=== PATIENT | female | born 1950 | race Caucasian/White ===

== ENCOUNTER → 2017-12-30 15:09 | Outpatient (CLI) | payer MEDICARE, OTHER, SELFPAY ==
[2017-12-30 15:16] LABS: Bacteria 0 SEEN /hpf (None Seen); Mucous, Urine 0 SEEN /hpf (<or=2+); Red Blood Cells-Urine 0 SEEN /hpf (0-5); Squamous Epithelial Cells - UA 0 SEEN /hpf (5-10); White Blood Cells 0 SEEN /hpf (0-5)
[2017-12-30 18:36] LABS: Absolute Neutrophil Count 6.2 X10^3/uL (2.0-7.7); Basophil# 0.04 X10^3/uL; Basophil% 0.5 % (0-1); Eosinophil# 0.02 X10^3/uL; Eosinophils% 0.2 % (0-5); Hematocrit 43.3 % (37-47); Hemoglobin 13.9 g/dl (12.0-15.0); Lymphocyte % 14.8 % (19-41); Mean Corp Hgb Conc 32.1 g/gl (32-36); Mean Corpuscular Volume 93.3 fL (81-99); Mean Platelet Vol. 10.3 fl (6.2-12.0); Monocyte# 0.56 X10^3/uL; Monocyte% 6.9 % (0-10); Neutrophil # 6.24 X10^3/uL (2.7-7.7); Platelet Count 408 K/mm3 (150-450); RBC Distribution Width CV 14.3 % (11.6-14.6); RBC Distribution Width SD 48.2 fl (35.1-43.9); Red Blood Count 4.64 M/mm3 (4.2-5.4); White Blood Count 8.1 K/mm3 (4.4-11.0)
[2017-12-30 18:37] LABS: POSITIVE COUNT NO; POSITIVE DIFFERENTIAL NO; POSITIVE MORPHOLOGY NO
[2017-12-30 18:54] LABS: Color, Urine Yellow (Yellow); Glucose, Dipstick Normal (Normal); Ketone-Dipstick Negative (Negative); Leukocyte Esterase-Dipstick Negative /ul (Negative); Nitrite-Dipstick Negative (Negative); Occult Blood-Urine Negative /ul (Negative); Protein-Dipstick Negative (Negative); Specific Gravity, Urine 1.005 (1.002-1.030); Urine Bilirubin Dipstick Negative (Negative); Urine Clarity Clear (Clear); Urine Urobilinogen Normal (Normal)
[2017-12-30 18:54] LABS: Amphetamine Urine VISTA NEGATIVE (<1000 ng/mL); Barbiturate Urine VISTA NEGATIVE (< 200 ng/mL); Benzodiazepine Urine VISTA NEGATIVE (< 200 ng/mL); Cocaine Urine VISTA NEGATIVE (< 300 ng/mL); Ecstacy Urine VISTA NEGATIVE (< 500 ng/mL); Methadone Urine VISTA NEGATIVE (< 300 ng/mL); PCP Urine VISTA NEGATIVE (< 25 ng/mL); THC Urine VISTA NEGATIVE (< 50 ng/mL); Vista UDS pH Range 6
[2017-12-30 18:56] LABS: Erythrocyte Sedimentation Rate 9 mm/hr (0-30)
[2017-12-30 19:04] LABS: ALB/GLOB Ratio 1.2 RATIO (0.9-2.4); AST(SGOT) 20 U/L (15-37); Alanine Aminotransfer ALT/SGPT 24 U/L (13-56); Alkaline Phosphatase 85 U/L (45-117); Anion Gap 7 (5-15); BUN 13 mg/dL (7-18); BUN/Creat Ratio 18.1 RATIO (10-20); Calcium,Total 9.4 mg/dL (8.5-10.1); Chloride 105 mmol/L (98-107); Cholesterol 216 mg/dL (200); Creatinine, Serum 0.72 mg/dL (0.55-1.02); EST Glomerular Filtration Rate 86 mL/min (>60); Est Glom Filt Rate - Afr Amer 104 mL/min (>60); Globulin 3.3 g/dL (2.2-4.2); Glucose 99 mg/dL (74-106); High Density Lipoprotein 71 mg/dL; Magnesium 2.3 mg/dL (1.6-2.6); Phosphorus 3.7 mg/dL (2.5-4.9); Potassium 3.9 mmol/L (3.5-5.1); Protein, Total 7.3 g/dL (6.4-8.2); Sodium Level 141 mmol/L (136-145); Thyroid Stim Hormone (TSH) 0.41 uIU/mL (0.358-3.74); Triglycerides 98 mg/dL; Very Low Density Lipoprotein 20 mg/dL (5-40)
[2017-12-30 19:15] LABS: Hemoglobin A1c 5.7 % (4.2-6.3)
[2017-12-31 08:45] LABS: Vitamin D,25 Hydroxy 41.1 ng/mL (29.95-100.01)
== END ==
PROVIDERS: Visit Provider Family Medicine
DX: E11.9 Type 2 diabetes mellitus without complications (principal); E55.9 Vitamin D deficiency, unspecified; M81.0 Age-related osteoporosis without current pathological fracture; L40.50 Arthropathic psoriasis, unspecified; R00.2 Palpitations; Z51.81 Encounter for therapeutic drug level monitoring
CPT/HCPCS: 36415; 80053; 80061; 80307; 81001; 82306; 83036; 83735; 84100; 84443; 85025; 85652

== ENCOUNTER → 2018-01-13 08:14 | Outpatient (CLI) | payer MEDICARE, OTHER, SELFPAY ==
--- NOTE | 2018-01-13 08:17 | HPBD_ITS ---
STUDY: DUAL ENERGY X-RAY ABSORPTIOMETRY / DXA REASON FOR EXAM: Female, 67 years old. The patient is postmenopausal. Loss of height. TECHNIQUE: Bone Mineral Density (BMD) measurements of lumbar spine and bilateral hips were obtained. COMPARISON: Comparison is made with prior study dated June 25, 2015. FINDINGS: Lumbar Spine (L1-L4): g/cm2 (0.793) / T-score (-3.1) / Z-score (-1.4) Findings are suggestive of osteoporosis with a high fracture risk. Left Femur Total: g/cm2 (0.667) / T-score (-2.7) / Z-score (-1.3) Left Femoral Neck: g/cm2 (0.717) / T-score (-2.3) / Z-score (-0.7) Right Femur Total: g/cm2 (0.735) / T-score (-2.2) / Z-score (-0.7) Right Femoral Neck: g/cm2 (0.732) / T-score (-2.2) / Z-score (-0.5) The T-Scores on the most recent prior examination were: Lumbar Spine (L1-L4): There has been worsening of bone density since the previous examination. Left Femur Total: which represents a worsening of 4.3%. Right Femur Total: which represents a worsening of 0.5%. HPBD/Dexa Bone Density Study (HP) IMPRESSION: The patient is considered osteoporotic as outlined below according to World [employer] (WHO) criteria with a high fracture risk. There has been worsening of bone density since the previous examination. Reference Information: The T-score is the number of standard deviations above or below the standard which is normal for young adults at their peak bone mineral density. The World Health Organization (WHO) interprets the T-scores as follows: Above -1 Normal bone density Between -1 and -2.5 Osteopenia Equal to / or below -2.5 Osteoporosis As a practical clinical guideline, osteopenia may be graded as follows: Mild -1 through -1.5 Moderate -1.6 through -2.0 Severe -2.1 through -2.4 The Z-score is the number of standard deviations above or below age-matched controls. A Z-score of less than -1.5 would be considered abnormal. References: 1. NIH Osteoporosis and Related Bone Diseases http://www.osteo.org 2. International Society for Clinical Densitometry http://www.iscd.org 3. National Osteoporosis Foundation http://www.nof.org Electronically Signed: Teja Tobar MD at 11:25 EDT Tel [phone], Service support ,
== END ==
PROVIDERS: Family Provider Family Medicine; PCP Family Medicine
DX: M81.0 Age-related osteoporosis without current pathological fracture (principal)
CPT/HCPCS: 77080

== ENCOUNTER → 2018-03-04 11:44 | Outpatient (CLI) | payer MEDICARE, OTHER, SELFPAY ==
--- NOTE | 2018-03-04 11:48 | BI_ITS ---
MAMMOGRAPHY - BILATERAL SCREENING REASON FOR EXAM: Female, 67 years old. Routine annual screening examination. PERTINENT HISTORY: Non-contributory. TECHNIQUE: Digital bilateral breast ana (3D mammographic acquisition) in the CC and MLO projections. 2-D mediolateral oblique (MLO) and craniocaudad (CC) views of both breasts were obtained. CAD: Full Field Digital Mammography with Computer Added Detection was performed. COMPARISON: Comparison is made with prior study dated February 09, 2017 and February 07, 2016. FINDINGS: Breast Composition: The breasts are heterogeneously dense, which may obscure small masses. There are no dominant masses or suspicious calcifications. No other significant abnormalities are identified. There has been no significant change since the prior study. BI/SCREENING MAMM (CAD), BILAT IMPRESSION: Stable bilateral screening mammogram. Yearly follow-up mammogram recommended. (A) ASSESSMENT CATEGORY: BIRADS Category 1: Negative. A letter regarding these results will be sent to the patient by the facility within 30 days. Approximately 10% of breast cancers are not detected by mammography. A normal mammogram should not delay biopsy of a clinically suspicious abnormality. [id number] Electronically Signed: Teja Tobar MD at 13:04 EDT Tel [phone], Service support ,
== END ==
PROVIDERS: Family Provider Family Medicine; PCP Family Medicine; Visit Provider Obstetrics & Gynecology
DX: Z12.31 Encounter for screening mammogram for malignant neoplasm of breast (principal)
CPT/HCPCS: 77063; 77067

== ENCOUNTER → 2018-03-07 10:22 | Outpatient (CLI) | payer MEDICARE, OTHER, SELFPAY ==
--- NOTE | 2018-03-07 10:36 | MRI_ITS ---
STUDY: MRI BRAIN WITH AND WITHOUT CONTRAST REASON FOR EXAM: Female, 67 years old. Dysmetria. Blurred vision, weakness, headaches, fatigue and unstable feet. TECHNIQUE: Standardized multiplanar fat and water weighted pulse sequences were obtained. 4 ml of Gadavist contrast material was administered intravenously for the contrast portion of the examination. COMPARISON: 06/16/2010. FINDINGS: No restricted diffusion to suspect acute or subacute ischemic infarct. Normal size of the ventricles and extra-axial spaces for the patient's age. Subcortical white matter T2 FLAIR hyperintensity foci in the right cerebral hemisphere are presumably chronic white matter ischemic changes. They have increased in number. Normal bilateral basal ganglia. Normal thalami. There is no extra-axial fluid accumulation. Normal flow voids within the major intracranial circulation suggesting patency by spin echo criteria. Normal venous enhancement. There is no enhancing intra-axial or extra-axial abnormality. Normal sella turcica, pituitary gland, infundibular stalk, optic chiasm and hypothalamus. Normal tectal plate and pineal gland. Normal midbrain, franky and medulla. 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 Normal left cerebellum. Normal basal cisterns. Normal bilateral temporal bones. Normal bilateral internal auditory canals. No demonstrated orbital abnormality, within the constraints of a routine brain study. Normal visualized paranasal sinuses. Normal calvarium and skull base. Normal visualized soft tissue structures. Normal visualized upper cervical spine. MRI/Brain W/WO Contrast IMPRESSION: 1. No MRI evidence of acute or subacute ischemic infarct. 2. 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 3. Increase number of chronic subcortical white matter ischemic changes in the right cerebral hemisphere when compared to 06/16/2010. Electronically Signed: Jesus Corbett MD at 12:37 EDT , Service support ,
[2018-03-07 11:41] LABS: CREATININE FINGERSTICK 0.6 mg/dL (0.55-1.02); EGFR FINGERSTICK > 60.0000 mL/min (>60)
== END ==
PROVIDERS: Family Provider Family Medicine; PCP Family Medicine; Visit Provider Family Medicine
DX: R27.8 Other lack of coordination (principal)
CPT/HCPCS: 70553; A9585

== ENCOUNTER → 2018-03-31 12:00 | Outpatient (CLI) | payer MEDICARE, OTHER, SELFPAY ==
[2018-04-01 12:23] LABS: Vitamin B12 352 pg/mL (211-911)
[2018-04-14 10:41] LABS: Vitamin B1, Thiamine 147.5 nmol/L (66.5-200.0)
== END ==
PROVIDERS: Family Provider Family Medicine; PCP Family Medicine; Visit Provider Family Medicine
DX: R26.89 Other abnormalities of gait and mobility (principal)
CPT/HCPCS: 82607; 84425

== ENCOUNTER → 2018-05-19 08:01 | Outpatient (CLI) | payer MEDICARE, OTHER, SELFPAY ==
[2018-05-19 10:12] LABS: Absolute Lymphocyte Count 2.17 X10^3/ul (0.83-4.51); Absolute Neutrophil Count 5.4 X10^3/uL (2.0-7.7); Basophil# 0.05 X10^3/uL; Basophil% 0.6 % (0-1); Eosinophil# 0.24 X10^3/uL; Eosinophils% 2.7 % (0-5); Hematocrit 42.9 % (37-47); Hemoglobin 13.9 g/dl (12.0-15.0); Lymphocyte # 2.17 X10^3/ul (4.0); Lymphocyte % 24.6 % (19-41); Mean Corp Hgb Conc 32.4 g/gl (32-36); Mean Corpuscular Hgb 30.3 pg (27.0-32.0); Mean Corpuscular Volume 93.5 fL (81-99); Mean Platelet Vol. 10.6 fl (6.2-12.0); Monocyte# 0.94 X10^3/uL; Monocyte% 10.7 % (0-10); Neutrophil # 5.37 X10^3/uL (2.7-7.7); Neutrophil % 60.9 % (47-70); Platelet Count 386 K/mm3 (150-450); RBC Distribution Width CV 13.6 % (11.6-14.6); Red Blood Count 4.59 M/mm3 (4.2-5.4); White Blood Count 8.8 K/mm3 (4.4-11.0)
[2018-05-19 10:14] LABS: POSITIVE COUNT NO; POSITIVE DIFFERENTIAL NO; POSITIVE MORPHOLOGY NO
[2018-05-19 10:30] LABS: ALB/GLOB Ratio 1.1 RATIO (0.9-2.4); AST(SGOT) 22 U/L (15-37); Alanine Aminotransfer ALT/SGPT 28 U/L (13-56); Albumin, Serum 3.8 g/dL (3.2-5.0); Alkaline Phosphatase 80 U/L (45-117); Anion Gap 6 (5-15); BUN 14 mg/dL (7-18); BUN/Creat Ratio 18.9 RATIO (10-20); Calcium,Total 9.2 mg/dL (8.5-10.1); Chloride 107 mmol/L (98-107); Cholesterol 143 mg/dL (200); Creatinine, Serum 0.74 mg/dL (0.55-1.02); EST Glomerular Filtration Rate 82 mL/min (>60); Est Glom Filt Rate - Afr Amer 100 mL/min (>60); Globulin 3.6 g/dL (2.2-4.2); Glucose 76 mg/dL (74-106); Hemoglobin A1c 5.4 % (4.2-6.3); High Density Lipoprotein 70 mg/dL; Potassium 3.9 mmol/L (3.5-5.1); Protein, Total 7.4 g/dL (6.4-8.2); Sodium Level 145 mmol/L (136-145); Triglycerides 114 mg/dL; Very Low Density Lipoprotein 23 mg/dL (5-40)
[2018-05-20 08:12] LABS: Vitamin D,25 Hydroxy 37.1 ng/mL (29.95-100.01)
== END ==
PROVIDERS: Family Provider Family Medicine; PCP Family Medicine; Visit Provider Family Medicine
DX: E78.5 Hyperlipidemia, unspecified (principal); R73.02 Impaired glucose tolerance (oral); E55.9 Vitamin D deficiency, unspecified; F17.200 Nicotine dependence, unspecified, uncomplicated; Z79.52 Long term (current) use of systemic steroids
CPT/HCPCS: 36415; 80053; 80061; 82306; 82533; 83036; 85025

== ENCOUNTER → 2018-05-30 12:44 | Outpatient (CLI) | payer MEDICARE, OTHER, SELFPAY ==
--- NOTE | 2018-06-02 14:55 | LEAS ---
Arterial Study - Arterial Study Arterial Study: This is a 67-year-old female with a history of hyperlipidemia and smoking. The patient presents with pain in her lower extremities with ambulation. Suspecting the presence of atherosclerotic peripheral arterial occlusive disease, the patient was brought to the noninvasive vascular laboratory at this time for the purpose of bilateral noninvasive lower extremity arterial assessment. Doppler signal assessment was used to evaluate the pulses in the lower extremities bilaterally. The posterior tibial and dorsalis pedis pulses were triphasic bilaterally. Segmental limb pressures were obtained at ankle level bilaterally. The right ankle pressure, as determined by posterior tibial pulse, was measured at 126 mmHg. The right ankle pressure, as determined by dorsalis pedis pulse, was measured at 131 mmHg. The left ankle pressure, as determined by posterior tibial pulse, was measured at 130 mmHg. The left ankle pressure, as determined by dorsalis pedis pulse, was measured at 132 mmHg. Pulse-volume recordings were obtained bilaterally and segmentally. Waveform amplitudes appeared to be satisfactory at all levels bilaterally, including low thigh, calf, ankle, and digital levels. Resting ankle-brachial indices were calculated bilaterally. The resting right ankle-brachial index was calculated to be 1.09. The resting left ankle-brachial index was calculated to be 1.10. The patient was exercised on a treadmill at a 5.0% incline at 2 mph. The patient experienced pain in her lower extremities after 1 minute, but was able to complete 5 minutes of ambulation. Ankle pressures were obtained at intervals following cessation of exercise. 1 minute following cessation of exercise, the right ankle pressure was measured at 136 mmHg, and the left ankle pressure was measured at 128 mmHg. 3 minutes following cessation of exercise, the right ankle pressure was measured at 124 mmHg, and the left ankle pressure was measured at 122 mmHg. 5 minutes following cessation of exercise, the right ankle pressure was measured at 114 mmHg, and the left ankle pressure was measured at 120 mmHg. Impression: Based upon the findings of this resting and exercise noninvasive lower extremity arterial study, there is evidence of mild arterial occlusive disease in the lower extremities bilaterally. Triphasic waveforms are noted at ankle level bilaterally. Resting ankle-brachial indices were bilaterally normal. These findings were normal based upon resting criteria. However, following a period of exercise, ankle pressures decreased bilaterally, which is an abnormal physiological response, and appears to indicate the presence of mild arterial occlusive disease in the lower extremities bilaterally. Clinical correlation is advised.
--- NOTE | 2018-06-02 15:04 | LEAS_ITS ---
Arterial Study - Arterial Study Arterial Study: This is a 67-year-old female with a history of hyperlipidemia and smoking. The patient presents with pain in her lower extremities with ambulation. Suspecting the presence of atherosclerotic peripheral arterial occlusive disease , the patient was brought to the noninvasive vascular laboratory at this time for the purpose of bilateral noninvasive lower extremity arterial assessment. Doppler signal assessment was used to evaluate the pulses in the lower extremities bilaterally. The posterior tibial and dorsalis pedis pulses were triphasic bilaterally. Segmental limb pressures were obtained at ankle level bilaterally. The right ankle pressure, as determined by posterior tibial pulse, was measured at 126 mmHg. The right ankle pressure, as determined by dorsalis pedis pulse, was measured at 131 mmHg. The left ankle pressure, as determined by posterior tibial pulse, was measured at 130 mmHg. The left ankle pressure, as determined by dorsalis pedis pulse, was measured at 132 mmHg. Pulse-volume recordings were obtained bilaterally and segmentally. Waveform amplitudes appeared to be satisfactory at all levels bilaterally, including low thigh, calf, ankle, and digital levels. Resting ankle-brachial indices were calculated bilaterally. The resting right ankle-brachial index was calculated to be 1.09. The resting left ankle- brachial index was calculated to be 1.10. The patient was exercised on a treadmill at a 5.0% incline at 2 mph. The patient experienced pain in her lower extremities after 1 minute, but was able to complete 5 minutes of ambulation. Ankle pressures were obtained at intervals following cessation of exercise. 1 minute following cessation of exercise, the right ankle pressure was measured at 136 mmHg, and the left ankle pressure was measured at 128 mmHg. 3 minutes following cessation of exercise, the right ankle pressure was measured at 124 mmHg, and the left ankle pressure was measured at 122 mmHg. 5 minutes following cessation of exercise, the right ankle pressure was measured at 114 mmHg, and the left ankle pressure was measured at 120 mmHg. Impression: Based upon the findings of this resting and exercise noninvasive lower extremity arterial study, there is evidence of mild arterial occlusive disease in the lower extremities bilaterally. Triphasic waveforms are noted at ankle level bilaterally. Resting ankle-brachial indices were bilaterally normal. These findings were normal based upon resting criteria. However, following a period of exercise, ankle pressures decreased bilaterally, which is an abnormal physiological response, and appears to indicate the presence of mild arterial occlusive disease in the lower extremities bilaterally. Clinical correlation is advised.
== END ==
PROVIDERS: Family Provider Family Medicine; PCP Family Medicine; Visit Provider Family Medicine
DX: I73.9 Peripheral vascular disease, unspecified (principal)
CPT/HCPCS: 93924

== ENCOUNTER → 2018-08-15 08:11 | Outpatient (CLI) | payer MEDICARE, OTHER, SELFPAY ==
[2018-08-15 08:39] LABS: Erythrocyte Sedimentation Rate 13 mm/hr (0-30)
[2018-08-15 09:08] LABS: CRP < 2.90 mg/L (0.0-3.0)
[2018-08-17 14:27] LABS: Adrenocorticotropic Hormone < 1.1 pg/mL (7.2-63.3)
== END ==
PROVIDERS: Family Provider Family Medicine; PCP Family Medicine
DX: E27.40 Unspecified adrenocortical insufficiency (principal); Z87.39 Personal history of other diseases of the musculoskeletal system and connective tissue
CPT/HCPCS: 36415; 82024; 82533; 85652; 86140

== ENCOUNTER → 2018-08-31 09:16 | Outpatient (CLI) | payer MEDICARE, OTHER, SELFPAY ==
[2018-08-31 10:28] LABS: Erythrocyte Sedimentation Rate 7 mm/hr (0-30)
[2018-09-01 14:07] LABS: SJOGREN'S Anti-SS-A test < 0.2 AI (0.0-0.9); SJOGREN'S Anti-SS-B test < 0.2 AI (0.0-0.9)
[2018-09-02 11:04] LABS: ANTINUCLEAR ANTIBODIES DIRECT Negative (Negative)
== END ==
PROVIDERS: Family Provider Family Medicine; PCP Family Medicine; Visit Provider Family Medicine
DX: R68.2 Dry mouth, unspecified (principal)
CPT/HCPCS: 36415; 85652; 86038; 86235

== ENCOUNTER → 2018-12-03 07:29 | Outpatient (CLI) | payer MEDICARE, OTHER, SELFPAY ==
[2018-11-28 13:05] VITALS: BMI 23.8
[2018-12-06 08:43] LABS: Adrenocorticotropic Hormone 10.9 pg/mL (7.2-63.3)
== END ==
PROVIDERS: Family Provider Family Medicine; PCP Family Medicine
DX: E27.40 Unspecified adrenocortical insufficiency (principal)
CPT/HCPCS: 36415; 82024; 82533

== ENCOUNTER → 2019-01-07 07:46 | Outpatient (CLI) | payer MEDICARE, OTHER, SELFPAY ==
[2018-11-28 13:05] VITALS: BMI 23.8
[2019-01-07 09:55] LABS: Erythrocyte Sedimentation Rate 4 mm/hr (0-30)
== END ==
PROVIDERS: Family Provider Family Medicine; PCP Family Medicine
DX: M31.6 Other giant cell arteritis (principal); E27.40 Unspecified adrenocortical insufficiency
CPT/HCPCS: 36415; 82533; 85652

== ENCOUNTER → 2019-02-09 | Outpatient (CLI) | payer MEDICARE, OTHER, SELFPAY ==
[2018-11-28 13:05] VITALS: BMI 23.8
[2019-02-09 14:15] LABS: Hematocrit 42.1 % (37-47); Hemoglobin 13.4 g/dl (12.0-15.0); Mean Corp Hgb Conc 31.8 g/gl (32-36); Mean Corpuscular Hgb 29.8 pg (27.0-32.0); Mean Corpuscular Volume 93.8 fL (81-99); Mean Platelet Vol. 10.7 fl (6.2-12.0); Platelet Count 401 K/mm3 (150-450); RBC Distribution Width CV 14.1 % (11.6-14.6); RBC Distribution Width SD 48.1 fl (35.1-43.9); Red Blood Count 4.49 M/mm3 (4.2-5.4); White Blood Count 12.2 K/mm3 (4.4-11.0)
[2019-02-09 14:16] LABS: Scan Indicated on CBC? Y/N NO
[2019-02-09 15:06] LABS: ALB/GLOB Ratio 1.3 RATIO (0.9-2.4); AST(SGOT) 28 U/L (15-37); Alanine Aminotransfer ALT/SGPT 26 U/L (13-56); Albumin, Serum 3.9 g/dL (3.2-5.0); Alkaline Phosphatase 99 U/L (45-117); Anion Gap 7 (5-15); BUN 11 mg/dL (7-18); BUN/Creat Ratio 14.1 RATIO (10-20); Calcium,Total 9.5 mg/dL (8.5-10.1); Chloride 108 mmol/L (98-107); Creatinine, Serum 0.78 mg/dL (0.55-1.02); EST Glomerular Filtration Rate 77 mL/min (>60); Est Glom Filt Rate - Afr Amer 94 mL/min (>60); Ferritin 81 ng/mL (8-252); Globulin 3.1 g/dL (2.2-4.2); Glucose 85 mg/dL (74-106); Potassium 4.3 mmol/L (3.5-5.1); Sodium Level 144 mmol/L (136-145); Thyroid Stim Hormone (TSH) 0.69 uIU/mL (0.358-3.74)
[2019-02-09 15:20] LABS: Vitamin B12 814 pg/mL (211-911)
== END | disposition home or self-care (01) ==
LOC: MFPLAB 11:53
PROVIDERS: Family Provider Family Medicine; PCP Family Medicine; Referring Provider Family Medicine; Visit Provider Family Medicine
DX: E61.1 Iron deficiency (principal); R53.83 Other fatigue
CPT/HCPCS: 36415; 80053; 82607; 82728; 82746; 84443; 85027

== ENCOUNTER → 2019-03-10 14:18 | Outpatient (CLI) | payer MEDICARE, OTHER, SELFPAY ==
[2018-11-28 13:05] VITALS: BMI 23.8
[2019-03-10 15:18] LABS: Potassium 3.7 mmol/L (3.5-5.1)
== END ==
PROVIDERS: Family Provider Family Medicine; PCP Family Medicine; Referring Provider Otolaryngology Otolaryngology/Facial Plastic Surgery; Visit Provider Otolaryngology Otolaryngology/Facial Plastic Surgery
DX: Z79.899 Other long term (current) drug therapy (principal)
CPT/HCPCS: 36415; 84132

== ENCOUNTER → 2019-04-06 | Outpatient (CLI) | payer MEDICARE, OTHER, SELFPAY ==
[2018-11-28 13:05] VITALS: BMI 23.8
[2019-04-06 07:18] LABS: Potassium 3.7 mmol/L (3.5-5.1)
== END | disposition home or self-care (01) ==
LOC: LAB 06:03
PROVIDERS: Family Provider Family Medicine; PCP Family Medicine; Referring Provider Otolaryngology Otolaryngology/Facial Plastic Surgery; Visit Provider Otolaryngology Otolaryngology/Facial Plastic Surgery
DX: Z79.899 Other long term (current) drug therapy (principal)
CPT/HCPCS: 36415; 84132

== ENCOUNTER → 2019-05-10 | Outpatient (CLI) | payer MEDICARE, OTHER, SELFPAY ==
[2018-11-28 13:05] VITALS: BMI 23.8
--- NOTE | 2019-05-10 14:21 | BI_ITS ---
MAMMOGRAPHY - BILATERAL SCREENING REASON FOR EXAM: Female, 68 years old. Routine annual screening examination. PERTINENT HISTORY: Non-contributory. TECHNIQUE: Digital bilateral breast jesus (3D mammographic acquisition) in the CC and MLO projections. 2-D mediolateral oblique (MLO) and craniocaudad (CC) views of both breasts were obtained. CAD: Full Field Digital Mammography with Computer Added Detection was performed. COMPARISON: Comparison is made with prior study dated March 04, 2018 and February 09, 2017. FINDINGS: Breast Composition: The breasts are heterogeneously dense, which may obscure small masses. There are no dominant masses or suspicious calcifications. Small bilateral benign appearing axillary lymph nodes. No other significant abnormalities are identified. There has been no significant change since the prior study. BI/SCREEN MAMM (CAD) W/JESUS BILAT IMPRESSION: Stable bilateral screening mammogram. Yearly follow-up mammogram recommended. (A) ASSESSMENT CATEGORY: BIRADS Category 2: Benign. A letter regarding these results will be sent to the patient by the facility within 30 days. Approximately 10% of breast cancers are not detected by mammography. A normal mammogram should not delay biopsy of a clinically suspicious abnormality. [id number] Electronically Signed: Teja Tobar, at 15:18 EDT , Service support ,
== END | disposition home or self-care (01) ==
LOC: OPBI 14:19
PROVIDERS: Family Provider Family Medicine; PCP Family Medicine; Referring Provider Family Medicine; Visit Provider Family Medicine
DX: Z12.31 Encounter for screening mammogram for malignant neoplasm of breast (principal)
CPT/HCPCS: 77063; 77067

== ENCOUNTER → 2019-05-19 | Outpatient (CLI) | payer MEDICARE, OTHER, SELFPAY ==
[2018-11-28 13:05] VITALS: BMI 23.8
[2019-05-19 10:24] LABS: ALB/GLOB Ratio 1.3 RATIO (0.9-2.4); AST(SGOT) 22 U/L (15-37); Alanine Aminotransfer ALT/SGPT 23 U/L (13-56); Albumin, Serum 3.8 g/dL (3.2-5.0); Alkaline Phosphatase 99 U/L (45-117); Anion Gap 9 (5-15); BUN 12 mg/dL (7-18); BUN/Creat Ratio 13.7 RATIO (10-20); CPK Total, Creatine Kinase 91 U/L (26-192); Calcium,Total 9.3 mg/dL (8.5-10.1); Chloride 108 mmol/L (98-107); Creatinine, Serum 0.87 mg/dL (0.55-1.02); EST Glomerular Filtration Rate 68 mL/min (>60); Est Glom Filt Rate - Afr Amer 82 mL/min (>60); Ferritin 63 ng/mL (8-252); Globulin 2.9 g/dL (2.2-4.2); Glucose 73 mg/dL (74-106); Magnesium 2.2 mg/dL (1.6-2.6); Potassium 3.9 mmol/L (3.5-5.1); Protein, Total 6.7 g/dL (6.4-8.2); Sodium Level 144 mmol/L (136-145)
[2019-05-29 14:08] LABS: Lyme IgG P18 Ab Absent (.); Lyme IgG P23 Ab Absent (.); Lyme IgG P28 Ab Absent (.); Lyme IgG P30 Ab Absent (.); Lyme IgG P39 Ab Absent (.); Lyme IgG P41 Ab Absent (.); Lyme IgG P45 Ab Absent (.); Lyme IgG P58 Ab Absent (.); Lyme IgG P66 Ab Absent (.); Lyme IgG P93 Ab Absent (.); Lyme IgM P23 Ab Absent (.); Lyme IgM P39 Ab Absent (.); Lyme IgM P41 Ab Absent (.)
[2019-05-30 14:02] LABS: Lyme IgG WB Interpretation Negative (.); Lyme IgM WB Interpretation Negative (.)
== END | disposition home or self-care (01) ==
LOC: MFPLAB 08:31
PROVIDERS: Family Provider Family Medicine; PCP Family Medicine; Referring Provider Family Medicine; Visit Provider Family Medicine
DX: R25.2 Cramp and spasm (principal)
CPT/HCPCS: 36415; 80053; 82550; 82728; 83735; 86617

== ENCOUNTER → 2019-05-26 | Outpatient (CLI) | payer MEDICARE, OTHER, SELFPAY ==
[2018-11-28 13:05] VITALS: BMI 23.8
[2019-05-25 08:11] VITALS: BMI 25.9
--- NOTE | 2019-05-26 06:31 | MRI_ITS ---
STUDY: MRI LUMBAR SPINE WITHOUT CONTRAST REASON FOR EXAM: Female, 68 years old. INCOMPLETE PARALYSIS -- muscles in bilat legs become rigid,unable to walk when this happens, chronic back pain. TECHNIQUE: Standardized fat and water weighted pulse sequences were obtained in the sagittal and axial planes. COMPARISON: March 25, 2016 FINDINGS: T12-L1: There is minimal disc space narrowing and endplate spondylosis. There is no significant disc herniation, central canal or foraminal stenosis. Normal lumbar lordosis. There is no substantial scoliosis. Normal conus medullaris that terminates at the L1 L1-2: There is minimal disc space narrowing and endplate spondylosis. There is no significant disc herniation, central canal or foraminal stenosis. L2-3: There is minimal disc space narrowing and endplate spondylosis. There is no significant disc herniation, central canal or foraminal stenosis. L3-4: There is severe disc space narrowing and endplates spondylosis. There is mild disc osteophyte complex asymmetric to the right with mild right foraminal stenosis. There is no significant central canal or left foraminal stenosis. Findings are slightly increased since the prior examination L4-5: There is minimal disc space narrowing and endplate spondylosis. There is no significant disc herniation, central canal or foraminal stenosis. Mild facet arthropathy L5-S1: There is minimal disc space narrowing and endplates spondylosis. Minimal disc bulge and facet arthropathy without significant central canal or foraminal stenosis. Normal visualized sacral ala. MRI/Spine Lumbar (Routine) IMPRESSION: L3/L4: Mild right foraminal stenosis. Electronically Signed: Tylor Gentile MD at 8:24 EDT Tel , Service support ,
== END | disposition home or self-care (01) ==
LOC: MRI 06:25
PROVIDERS: Family Provider Family Medicine; PCP Family Medicine; Referring Provider Family Medicine; Visit Provider Family Medicine
DX: G83.9 Paralytic syndrome, unspecified (principal)
CPT/HCPCS: 72148

== ENCOUNTER → 2019-06-21 | Outpatient (CLI) | payer MEDICARE, OTHER, SELFPAY ==
[2019-05-25 08:11] VITALS: BMI 25.9
[2019-06-21 16:19] LABS: Vitamin B12 420 pg/mL (211-911)
[2019-06-21 16:43] LABS: Thyroid Stim Hormone (TSH) 0.43 uIU/mL (0.358-3.74)
[2019-06-25 23:12] LABS: Endomysial Antibody IgA Negative (Negative)
[2019-06-26 10:08] LABS: Deamidated Gliadin IgA 7 units (0-19); Deamidated Gliadin IgG 1 units (0-19); Thyroglobulin Antibody < 1.0 IU/mL (0.0-0.9); Vitamin B1, Thiamine 128.1 nmol/L (66.5-200.0); t-Transglutaminase IgA <2 U/mL (0-3)
[2019-06-26 13:56] LABS: ANTINUCLEAR ANTIBODIES DIRECT Negative (Negative)
== END | disposition home or self-care (01) ==
PROVIDERS: Family Provider Family Medicine; PCP Family Medicine
DX: E27.40 Unspecified adrenocortical insufficiency (principal); R26.81 Unsteadiness on feet
CPT/HCPCS: 36415; 82607; 83516; 84425; 84443; 86038; 86255; 86800

== ENCOUNTER → 2019-06-27 | Outpatient (CLI) | payer MEDICARE, OTHER, SELFPAY ==
[2019-05-25 08:11] VITALS: BMI 25.9
--- NOTE | 2019-06-27 06:37 | MRI_ITS ---
STUDY: MRI BRAIN WITHOUT CONTRAST REASON FOR EXAM: Female, 68 years old. Unsteady gait and memory loss. TECHNIQUE: Standardized multiplanar fat and water weighted pulse sequences were obtained. COMPARISON: 03/07/2018. FINDINGS: No restricted diffusion to suspect acute or subacute ischemic infarct. Normal size of the ventricles and extra-axial spaces for the patient's age. Subcortical white matter T2 FLAIR hyperintensity foci in the right cerebral hemisphere more than the left are chronic white matter ischemic changes. They are unchanged. No midline shift and no mass effects. Normal bilateral basal ganglia. Normal thalami. There is no extra-axial fluid accumulation. Normal flow voids within the major intracranial circulation suggesting patency by spin echo criteria. Normal sella turcica, pituitary gland, infundibular stalk, optic chiasm and hypothalamus. Normal tectal plate and pineal gland. Normal midbrain, franky and medulla. Normal cerebellum. Normal basal cisterns. Normal bilateral temporal bones. Normal bilateral internal auditory canals. No demonstrated orbital abnormality, within the constraints of a routine brain study. Smaller size right maxillary sinus is probably developmental. Normal paranasal sinuses. Mild right nasal septal deviation. Normal calvarium and skull base. Normal visualized soft tissue structures. Normal visualized upper cervical spine. MRI/Brain without Contrast IMPRESSION: 1. No MRI evidence of acute or subacute ischemic infarct or acute intracranial abnormality. 2. Small chronic subcortical white matter ischemic changes in both cerebral hemispheres, right more than left. 3. No interval change when compared to 03/07/2018. Electronically Signed: Jesus Corbett MD at 9:00 EDT , Service support ,
== END | disposition home or self-care (01) ==
LOC: MRI 06:29
PROVIDERS: Family Provider Family Medicine; PCP Family Medicine
DX: R90.89 Other abnormal findings on diagnostic imaging of central nervous system (principal)
CPT/HCPCS: 70551

== ENCOUNTER → 2019-08-08 | Outpatient (CLI) | payer MEDICARE, OTHER, SELFPAY ==
[2019-05-25 08:11] VITALS: BMI 25.9
[2019-08-08 12:45] LABS: ALB/GLOB Ratio 1.1 RATIO (0.9-2.4); AST(SGOT) 23 U/L (15-37); Alanine Aminotransfer ALT/SGPT 23 U/L (13-56); Albumin, Serum 3.8 g/dL (3.2-5.0); Alkaline Phosphatase 108 U/L (45-117); Anion Gap 5 (5-15); BUN 14 mg/dL (7-18); BUN/Creat Ratio 16.3 RATIO (10-20); Calcium,Total 9.4 mg/dL (8.5-10.1); Chloride 107 mmol/L (98-107); Creatinine, Serum 0.86 mg/dL (0.55-1.02); EST Glomerular Filtration Rate 69 mL/min (>60); Est Glom Filt Rate - Afr Amer 84 mL/min (>60); Globulin 3.4 g/dL (2.2-4.2); Glucose 97 mg/dL (74-106); Potassium 3.8 mmol/L (3.5-5.1); Protein, Total 7.2 g/dL (6.4-8.2); Sodium Level 140 mmol/L (136-145)
== END | disposition home or self-care (01) ==
LOC: MFPLAB 10:20
PROVIDERS: Family Provider Family Medicine; PCP Family Medicine; Referring Provider Family Medicine; Visit Provider Family Medicine
DX: R10.11 Right upper quadrant pain (principal)
CPT/HCPCS: 36415; 80053

== ENCOUNTER → 2019-08-22 | Outpatient (CLI) | payer MEDICARE, OTHER, SELFPAY ==
[2019-05-25 08:11] VITALS: BMI 25.9
--- NOTE | 2019-08-22 08:08 | US_ITS ---
STUDY: ABDOMINAL ULTRASOUND - RIGHT UPPER QUADRANT REASON FOR VISIT: Female, 69 years old right upper quadrant pain. TECHNIQUE: Ultrasound evaluation of the right upper quadrant was performed with real-time and static goyal-scale imaging. TECHNICAL QUALITY: Adequate. COMPARISON: None. FINDINGS: Liver: The liver measures 12.9 cm. There is normal echogenicity of the liver. The bile ducts are within normal limits. There is hepatic color flow. The direction of portal flow is hepatopetal. There is no demonstrated mass lesion. Gallbladder: The patient is status post cholecystectomy. Common Bile Duct (C.B.D.): The common bile duct is dilated and measures 13.1 mm. Pancreas: Normal size of the head, body and tail of the pancreas. There is normal echogenicity of the pancreas. There is no demonstrated pancreatic mass or cyst. Right Kidney: Normal size of the right kidney. The right kidney measures 9.4 cm x 5 cm x 4.3 cm. Normal renal cortex. The right cortex measures 1.4 cm. There is a 1.1 cm x 1.17 x 1 cm cyst in the inferior aspect of the kidney. There is no right hydronephrosis. US/Abdomen Limited IMPRESSION: Status post cholecystectomy. Dilated common bile duct measuring 13.1 mm. Electronically Signed: Teja Tobar, at 15:24 EDT , Service support ,
== END | disposition home or self-care (01) ==
LOC: US 08:06
PROVIDERS: Family Provider Family Medicine; PCP Family Medicine; Referring Provider Family Medicine; Visit Provider Family Medicine
DX: R10.11 Right upper quadrant pain (principal)
CPT/HCPCS: 76705

== ENCOUNTER → 2019-10-09 11:34 | Outpatient (CLI) | payer MEDICARE, OTHER, SELFPAY ==
[2019-05-25 08:11] VITALS: BMI 25.9
[2019-10-09 13:53] LABS: Hematocrit 41.8 % (37-47); Hemoglobin 13.3 g/dL (12.0-15.0); Mean Corp Hgb Conc 31.8 g/dL (32-36); Mean Corpuscular Hgb 29.8 pg (27.0-32.0); Mean Corpuscular Volume 93.5 fL (81-99); Mean Platelet Vol. 10.3 fl (6.2-12.0); Platelet Count 374 K/mm3 (150-450); RBC Distribution Width CV 13.5 % (11.6-14.6); RBC Distribution Width SD 46.3 fl (35.1-43.9); Red Blood Count 4.47 M/mm3 (4.2-5.4); White Blood Count 10.3 K/mm3 (4.4-11.0)
[2019-10-09 14:12] LABS: Vitamin B12 690 pg/mL (211-911)
[2019-10-09 14:21] LABS: ALB/GLOB Ratio 1.2 RATIO (0.9-2.4); AST(SGOT) 22 U/L (15-37); Alanine Aminotransfer ALT/SGPT 20 U/L (13-56); Albumin, Serum 3.9 g/dL (3.2-5.0); Alkaline Phosphatase 95 U/L (45-117); Anion Gap 6 (5-15); BUN 12 mg/dL (7-18); BUN/Creat Ratio 13.2 RATIO (10-20); Calcium,Total 9.2 mg/dL (8.5-10.1); Chloride 108 mmol/L (98-107); Creatinine, Serum 0.91 mg/dL (0.55-1.02); EST Glomerular Filtration Rate 65 mL/min (>60); Est Glom Filt Rate - Afr Amer 79 mL/min (>60); Ferritin 63 ng/mL (8-252); Globulin 3.2 g/dL (2.2-4.2); Glucose 83 mg/dL (74-106); Potassium 3.9 mmol/L (3.5-5.1); Protein, Total 7.1 g/dL (6.4-8.2); Sodium Level 141 mmol/L (136-145); Thyroid Stim Hormone (TSH) 0.78 uIU/mL (0.358-3.74)
[2019-10-11 12:16] LABS: Cholesterol 183 mg/dL (200); High Density Lipoprotein 77 mg/dL; Triglycerides 122 mg/dL; Very Low Density Lipoprotein 24 mg/dL (5-40)
[2019-10-11 12:18] LABS: Vitamin D,25 Hydroxy 22.8 ng/mL (29.95-100.01)
[2019-10-11 12:37] LABS: Hemoglobin A1c 5.3 % (4.2-6.3)
[2019-10-13 17:06] LABS: Anti-Thyroglobulin AB < 1.0 IU/mL (0.0-0.9)
== END ==
PROVIDERS: Family Medicine; Family Provider Family Medicine; PCP Family Medicine; Visit Provider Family Medicine
DX: E61.1 Iron deficiency (principal); R53.83 Other fatigue
CPT/HCPCS: 36415; 80053; 80061; 82306; 82607; 82728; 82746; 83036; 84432; 84443; 85027; 86800

== ENCOUNTER → 2019-11-28 | Outpatient (CLI) | payer MEDICARE, OTHER, SELFPAY ==
[2019-05-25 08:11] VITALS: BMI 25.9
[2019-11-28 08:10] LABS: Thyroid Stim Hormone (TSH) 0.78 uIU/mL (0.358-3.74)
[2019-11-30 00:45] LABS: Adrenocorticotropic Hormone 13.3 pg/mL (7.2-63.3)
== END | disposition home or self-care (01) ==
LOC: LAB 06:52
PROVIDERS: PCP Family Medicine
DX: E27.40 Unspecified adrenocortical insufficiency (principal); R00.0 Tachycardia, unspecified
CPT/HCPCS: 36415; 82024; 82533; 84443

== ENCOUNTER → 2020-01-10 | Outpatient (CLI) | payer MEDICARE, OTHER, SELFPAY ==
[2019-05-25 08:11] VITALS: BMI 25.9
[2020-01-10 15:38] LABS: ALB/GLOB Ratio 1.3 RATIO (0.9-2.4); AST(SGOT) 18 U/L (15-37); Alanine Aminotransfer ALT/SGPT 21 U/L (13-56); Albumin, Serum 3.9 g/dL (3.2-5.0); Alkaline Phosphatase 108 U/L (45-117); Anion Gap 6 (5-15); BUN 10 mg/dL (7-18); BUN/Creat Ratio 12.8 RATIO (10-20); Calcium,Total 9.5 mg/dL (8.5-10.1); Chloride 109 mmol/L (98-107); Cholesterol 161 mg/dL (200); Creatinine, Serum 0.78 mg/dL (0.55-1.02); EST Glomerular Filtration Rate 77 mL/min (>60); Est Glom Filt Rate - Afr Amer 93 mL/min (>60); Globulin 2.9 g/dL (2.2-4.2); Glucose 71 mg/dL (74-106); High Density Lipoprotein 73 mg/dL; Potassium 4.1 mmol/L (3.5-5.1); Protein, Total 6.8 g/dL (6.4-8.2); Sodium Level 143 mmol/L (136-145); Triglycerides 121 mg/dL; Very Low Density Lipoprotein 24 mg/dL (5-40)
[2020-01-10 15:44] LABS: Hemoglobin A1c 5.4 % (4.2-6.3)
[2020-01-13 08:48] LABS: Vitamin D,25 Hydroxy 40.7 ng/mL
== END | disposition home or self-care (01) ==
LOC: MFPLAB 11:50
PROVIDERS: PCP Family Medicine; Referring Provider Family Medicine; Visit Provider Family Medicine
DX: E55.9 Vitamin D deficiency, unspecified (principal); E78.5 Hyperlipidemia, unspecified; R73.02 Impaired glucose tolerance (oral)
CPT/HCPCS: 36415; 80053; 80061; 82306; 83036

== ENCOUNTER → 2020-03-19 16:38 | Outpatient (CLI) | payer MEDICARE, OTHER, SELFPAY ==
[2020-02-14 10:52] VITALS: BMI 25.4
[2020-03-19 17:57] LABS: Cholesterol 162 mg/dL (200); High Density Lipoprotein 75 mg/dL; Triglycerides 144 mg/dL; Very Low Density Lipoprotein 29 mg/dL (5-40)
[2020-03-19 17:58] LABS: Vitamin D,25 Hydroxy 38.1 ng/mL
[2020-03-19 18:01] LABS: Hemoglobin A1c 5.4 % (3.8-5.6)
== END ==
PROVIDERS: PCP Family Medicine; Referring Provider Family Medicine; Visit Provider Family Medicine
DX: R73.02 Impaired glucose tolerance (oral) (principal); E78.5 Hyperlipidemia, unspecified; E55.9 Vitamin D deficiency, unspecified
CPT/HCPCS: 36415; 80061; 82306; 83036

== ENCOUNTER → 2020-03-29 | Outpatient (CLI) | payer MEDICARE, OTHER, SELFPAY ==
[2020-02-14 10:52] VITALS: BMI 25.4
--- NOTE | 2020-03-29 09:25 | RAD_ITS ---
STUDY: X-RAY - ESOPHAGUS (BARIUM SWALLOW) WITH FLUOROSCOPY REASON FOR EXAM: Female, 69 years old. ABDOMINAL BLOATING, PAIN, BURPING, SEVERE HEARTBURN, INDIGESTION. 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 FLUOROSCOPY TIME (if supplied): (0:38) minutes/seconds COMPARISON: None. FINDINGS: There is no demonstrated esophageal foreign body. There is no demonstrated stricture or mucosal abnormality. Normal gastroesophageal junction, without a demonstrated hiatal hernia. The patient ingested a 12 mm tablet of barium without any difficulty. There is atherosclerotic calcification of the aortic arch with tortuosity of the descending aorta. Normal visualized pulmonary parenchyma. There are degenerative changes of the visualized thoracic spine. RAD/Esophagus Single Contrast IMPRESSION: Normal plain film x-ray examination (barium swallow) of the esophagus. Electronically Signed: Teja Tobar, at 10:06 EDT , Service support ,
== END | disposition home or self-care (01) ==
LOC: RAD 08:53
PROVIDERS: PCP Family Medicine; Referring Provider Family Medicine; Visit Provider Family Medicine
DX: K44.9 Diaphragmatic hernia without obstruction or gangrene (principal)
CPT/HCPCS: 74220

== ENCOUNTER → 2020-04-04 | Outpatient (CLI) | payer MEDICARE, OTHER, SELFPAY ==
[2020-02-14 10:52] VITALS: BMI 25.4
--- NOTE | 2020-04-04 10:10 | NM_ITS ---
CLINICAL: 69-year-old female with reported history of abdominal pain and bloating. SEMI-SOLID PHASE 99m Tc SULFUR COLLOID GASTRIC EMPTYING STUDY COMPARISON: Esophageal barium swallow report 03/29/2020 FINDINGS: The patient was administered 1.0 mCi of 99m Tc sulfur colloid mixed with oatmeal and consumed per os. Image acquisitions in the anterior-posterior projections for a total of 60 minutes. There is prompt visualization of the stomach. There is no gastroesophageal reflux identified. The T1/2 linear fit was calculated to be 37.82 minutes, (Normal: 12-56 minutes). NM/Gastric Emptying Study IMPRESSION: 1. NORMAL 99m Tc sulfur colloid semi-solid phase (oatmeal) gastric emptying imaging examination. A. There is normal and preserved semi-solid phase gastric emptying compared to normal controls with maintained first order kinetics throughout all components of the examination. (Gilson et al, J Nucl Med Tech 38: 186, 2010). Electronically Signed: Juan Thomas DO at 22:10 EDT Tel , Service support ,
== END | disposition home or self-care (01) ==
LOC: NM 10:08
PROVIDERS: PCP Family Medicine; Referring Provider Family Medicine; Visit Provider Family Medicine
DX: R68.81 Early satiety (principal)
CPT/HCPCS: 78264; A9541

== ENCOUNTER → 2020-04-11 13:53 | Outpatient (CLI) | payer MEDICARE, OTHER, SELFPAY ==
[2020-02-14 10:52] VITALS: BMI 25.4
--- NOTE | 2020-04-11 14:02 | BD_ITS ---
STUDY: DUAL ENERGY X-RAY ABSORPTIOMETRY / DXA REASON FOR EXAM: Female, 69 years old. Age of varun partial hysterectomy 27. Pat is 130.6# and 4 and quot;11 and quot; a loss of 1.5 and quot; per pat. An HRT patch for yrs now. Patient is a smoker. Been on prednisone for about 10 yrs now. Hx of RA. Takes gabapentin. Has been on prolia for about 1.5 yrs now past use of reclast. Exercises moderatly. Sister has osteo. TECHNIQUE: Bone Mineral Density (BMD) measurements of lumbar spine and bilateral hips were obtained. COMPARISON: Comparison is made with prior examination dated January 13, 2018 FINDINGS: Lumbar Spine (L1-L4): g/cm2 (0.853) / T-score (-2.6) / Z-score (-0.9) Findings are suggestive of osteoporosis with a high fracture risk. Left Femur Total: g/cm2 (0.725) / T-score (-2.2) / Z-score (-0.7) Left Femoral Neck: g/cm2 (0.741) / T-score (-2.1) / Z-score (-0.4) Right Femur Total: g/cm2 (0.741) / T-score (-2.1) / Z-score (-0.6) Right Femoral Neck: g/cm2 (0.720) / T-score (-2.3) / Z-score (-0.5) The T-Scores on the most recent prior examination were: Lumbar Spine (L1-L4): There has been improvement of bone density since the previous examination. Left Femur Total: which represents an improvement of 8.7%. Right Femur Total: which represents an improvement of 0.8%. BD/Dexa Bone Density Study IMPRESSION: The patient is considered osteoporotic as outlined below according to World [employer] (WHO) criteria with a high fracture risk. There has been improvement of bone density since the previous examination. Reference Information: The T-score is the number of standard deviations above or below the standard which is normal for young adults at their peak bone mineral density. The World Health Organization (WHO) interprets the T-scores as follows: Above -1 Normal bone density Between -1 and -2.5 Osteopenia Equal to / or below -2.5 Osteoporosis As a practical clinical guideline, osteopenia may be graded as follows: Mild -1 through -1.5 Moderate -1.6 through -2.0 Severe -2.1 through -2.4 The Z-score is the number of standard deviations above or below age-matched controls. A Z-score of less than -1.5 would be considered abnormal. References: 1. NIH Osteoporosis and Related Bone Diseases http://www.osteo.org 2. International Society for Clinical Densitometry http://www.iscd.org 3. National Osteoporosis Foundation http://www.nof.org Electronically Signed: Teja Tobar, at 15:21 EDT , Service support ,
== END ==
PROVIDERS: PCP Family Medicine; Referring Provider Internal Medicine Rheumatology; Visit Provider Internal Medicine Rheumatology
DX: M81.0 Age-related osteoporosis without current pathological fracture (principal)
CPT/HCPCS: 77080

== ENCOUNTER → 2020-07-23 | Outpatient (CLI) | payer MEDICARE, OTHER, SELFPAY ==
[2020-02-14 10:52] VITALS: BMI 25.4
[2020-07-23 18:01] LABS: Absolute Lymphocyte Count 1.77 X10^3/uL (0.83-4.51); Absolute Neutrophil Count 8.1 X10^3/uL (2.0-7.7); Basophil# 0.06 X10^3/uL; Basophil% 0.5 % (0-1); Eosinophil# 0.03 X10^3/uL; Eosinophils% 0.3 % (0-5); Hematocrit 39.2 % (37-47); Hemoglobin 12.5 g/dL (12.0-15.0); Lymphocyte # 1.77 X10^3/ul (4.0); Lymphocyte % 16.2 % (19-41); Mean Corp Hgb Conc 31.9 g/dL (32-36); Mean Corpuscular Hgb 28.9 pg (27.0-32.0); Mean Corpuscular Volume 90.7 fL (81-99); Mean Platelet Vol. 9.9 fl (6.2-12.0); Monocyte# 0.89 X10^3/uL; Monocyte% 8.1 % (0-10); NRBC Flagged by Analyzer 0 % (0-5); Neutrophil # 8.13 X10^3/uL (2.7-7.7); Neutrophil % 74.3 % (47-70); Platelet Count 485 K/mm3 (150-450); RBC Distribution Width CV 13.2 % (11.6-14.6); RBC Distribution Width SD 44.5 fl (35.1-43.9); Red Blood Count 4.32 M/mm3 (4.2-5.4)
[2020-07-23 18:09] LABS: ALB/GLOB Ratio 1.2 RATIO (0.9-2.4); AST(SGOT) 21 U/L (15-37); Alanine Aminotransfer ALT/SGPT 25 U/L (13-56); Albumin, Serum 3.9 g/dL (3.2-5.0); Alkaline Phosphatase 125 U/L (45-117); Anion Gap 7 (5-15); BUN 12 mg/dL (7-18); BUN/Creat Ratio 16.9 RATIO (10-20); Calcium,Total 9.4 mg/dL (8.5-10.1); Chloride 107 mmol/L (98-107); Cholesterol 161 mg/dL (200); Creatinine, Serum 0.71 mg/dL (0.55-1.02); EST Glomerular Filtration Rate 86 mL/min (>60); Est Glom Filt Rate - Afr Amer 104 mL/min (>60); Globulin 3.2 g/dL (2.2-4.2); Glucose 80 mg/dL (74-106); High Density Lipoprotein 79 mg/dL; Potassium 4.3 mmol/L (3.5-5.1); Protein, Total 7.1 g/dL (6.4-8.2); Sodium Level 142 mmol/L (136-145); Triglycerides 97 mg/dL; Very Low Density Lipoprotein 19 mg/dL (5-40)
[2020-07-23 18:43] LABS: Hemoglobin A1c 5.3 % (3.8-5.6)
[2020-07-24 15:45] LABS: Vitamin D,25 Hydroxy 45.4 ng/mL
== END | disposition home or self-care (01) ==
LOC: MFPLAB 16:01
PROVIDERS: PCP Family Medicine; Referring Provider Family Medicine; Visit Provider Family Medicine
DX: E78.5 Hyperlipidemia, unspecified (principal); R73.02 Impaired glucose tolerance (oral); E55.9 Vitamin D deficiency, unspecified; F17.200 Nicotine dependence, unspecified, uncomplicated; Z86.73 Personal history of transient ischemic attack (TIA), and cerebral infarction without residual deficits
CPT/HCPCS: 36415; 80053; 80061; 82306; 83036; 85025

== ENCOUNTER → 2020-07-29 | Outpatient (CLI) | payer MEDICARE, OTHER, SELFPAY ==
[2020-02-14 10:52] VITALS: BMI 25.4
[2020-07-29 09:31] LABS: Absolute Lymphocyte Count 1.29 X10^3/uL (0.83-4.51); Absolute Neutrophil Count 11.5 X10^3/uL (2.0-7.7); Basophil# 0.08 X10^3/uL; Basophil% 0.6 % (0-1); Eosinophils% 0.7 % (0-5); Hematocrit 40.6 % (37-47); Hemoglobin 12.9 g/dL (12.0-15.0); Lymphocyte # 1.29 X10^3/ul (4.0); Lymphocyte % 9.2 % (19-41); Mean Corp Hgb Conc 31.8 g/dL (32-36); Mean Corpuscular Hgb 29.1 pg (27.0-32.0); Mean Corpuscular Volume 91.6 fL (81-99); Mean Platelet Vol. 9.4 fl (6.2-12.0); Monocyte# 0.99 X10^3/uL; NRBC Flagged by Analyzer 0 % (0-5); Neutrophil # 11.48 X10^3/uL (2.7-7.7); Neutrophil % 81.6 % (47-70); Platelet Count 476 K/mm3 (150-450); RBC Distribution Width CV 13.2 % (11.6-14.6); RBC Distribution Width SD 45.4 fl (35.1-43.9); Red Blood Count 4.43 M/mm3 (4.2-5.4); White Blood Count 14.1 K/mm3 (4.4-11.0)
--- NOTE | 2020-07-29 09:45 | RAD_ITS ---
STUDY: X-RAY CHEST REASON FOR EXAM: Female, 69 years old. Drug therapy. No chest complaints currently. 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 TECHNIQUE: PA and lateral views of the chest. COMPARISON: 09/13/2013. FINDINGS: There is chronic interstitial changes in lungs without acute infiltrate or mass. There is no demonstrated pleural abnormality. Normal size heart. There is evidence of a PVO closure. Normal mediastinum and betty. Normal visualized pulmonary arteries. There is atherosclerotic calcification of the aortic arch with tortuosity. Normal visualized thoracic spine. Normal visualized ribs, clavicles, and shoulders. There is no demonstrated abnormality of the visualized soft tissue structures of the upper abdomen. RAD/Chest PA and Lateral IMPRESSION: Chronic pulmonary changes. There is no new mass or interval change Electronically Signed: Harris Zavala DO at 23:42 EDT Tel [phone], Service support ,
[2020-07-29 10:28] LABS: AST(SGOT) 22 U/L (15-37); Alanine Aminotransfer ALT/SGPT 22 U/L (13-56); Albumin, Serum 3.8 g/dL (3.2-5.0); Alkaline Phosphatase 121 U/L (45-117); Bilirubin, Direct 0.11 mg/dL (0.00-0.30); Globulin 3.5 g/dL (2.2-4.2); Protein, Total 7.3 g/dL (6.4-8.2)
[2020-07-29 10:49] LABS: HIV - WCH Non-Reactive (Nonreactive); Hepatitis B Surface Antibody Non-Reactive; Hepatitis B Surface Antigen Non-Reactive (Nonreactive); Hepatitis C Antibody Non-Reactive (Nonreactive)
[2020-07-31 20:07] LABS: QNTFERON TB Mitogen Value 0.56 IU/mL (.); QNTFERON TB Nil Value 0.01 IU/mL (.); QNTFERON TB1+ Ag Value 0.01 IU/mL (.); QNTFERON TB2+ Ag Value 0.01 IU/mL (.)
[2020-07-31 21:05] LABS: Hepatitis B Core Ab Total Negative (Negative); QNTIFERON TB Positive Criteria Negative (Negative)
== END | disposition home or self-care (01) ==
LOC: LAB 09:10
PROVIDERS: PCP Family Medicine; Referring Provider Dermatology; Visit Provider Dermatology
DX: Z79.899 Other long term (current) drug therapy (principal); L40.0 Psoriasis vulgaris; L57.0 Actinic keratosis; L53.8 Other specified erythematous conditions; L82.0 Inflamed seborrheic keratosis; L82.1 Other seborrheic keratosis; L40.8 Other psoriasis; L40.59 Other psoriatic arthropathy
CPT/HCPCS: 36415; 71046; 80076; 85025; 86480; 86703; 86704; 86706; 86803; 87340

== ENCOUNTER → 2020-10-22 09:53 | Outpatient (CLI) | payer MEDICARE, OTHER, SELFPAY ==
[2020-02-14 10:52] VITALS: BMI 25.4
[2020-10-22 10:10] VITALS: BP 139/75; PULSE 123; RESP 16; TEMP 36.5; O2SAT 100; BMI 24.8
[2020-10-22] MEDS: DENOSUMAB 60 MG/ML SQ (10:22)
[2020-10-22 10:23] VITALS: BP 137/75; PULSE 123; RESP 16; TEMP 36.5; O2SAT 100
== END ==
PROVIDERS: PCP Family Medicine
DX: M81.0 Age-related osteoporosis without current pathological fracture (principal)
CPT/HCPCS: 96372; J0897

== ENCOUNTER → 2020-11-04 14:42 | Outpatient (CLI) | payer MEDICARE, OTHER, SELFPAY ==
[2020-10-22 10:10] VITALS: BMI 24.8
--- NOTE | 2020-11-04 14:52 | CT_ITS ---
STUDY: CT CHEST WITHOUT CONTRAST- LOW DOSE SCREENING PROTOCOL REASON FOR EXAM: Female, 70 years old. Current smoker. pack per year history. No current symptoms of lung cancer or pulmonary infection. Shared decision-making with referring PCP documented in patient''s record. RADIATION DOSAGE (If Supplied By Facility): CTDIvol = ( 2.01 ) mGy, DLP = ( 66.95 ) mGycm TECHNIQUE: Low dose screening CT examination performed from the base of the neck to the upper abdomen. Sagittal and coronal reformatted images performed. Sagittal and coronal MIP images provided. The measurements provided are average, rounded measurements per ACR guidelines. COMPARISON: 08/23/2015 FINDINGS: Mild bilateral apical scarring. Mild emphysematous changes with subpleural blebs. No noncalcified nodule or mass. There is no demonstrated pleural abnormality. Normal heart and pericardium. There are calcifications of the coronary arteries. Normal mediastinum. Normal hilar regions. Normal unenhanced pulmonary arteries. There is atherosclerotic calcification of the aortic arch with tortuosity and elongation of the aortic arch and descending thoracic aorta. Normal osseous structures. Status post cholecystectomy. CT/Low Dose CT Lung Screening IMPRESSION: 1. No significant indeterminate incidental findings requiring additional imaging. 2. Incidental findings include mild emphysema and bilateral apical scarring.. ASSESSMENT CATEGORY: LungRADS 1 - Negative. Continue annual screening with LDCT in 12 months, per established ACR guidelines. Electronically Signed: Juan Lopez MD at 9:00 EST Tel , Service support ,
== END ==
PROVIDERS: PCP Family Medicine; Referring Provider Family Medicine; Visit Provider Family Medicine
DX: Z87.891 Personal history of nicotine dependence (principal); Z12.2 Encounter for screening for malignant neoplasm of respiratory organs
CPT/HCPCS: 71271

== ENCOUNTER 2020-11-29 06:24 | Day surgery (SDC) | payer MEDICARE, OTHER, SELFPAY ==
[2020-11-14 09:56] VITALS: BMI 25.2
[2020-11-29 07:04] VITALS: BP 124/71; PULSE 110; RESP 16; TEMP 36.4; O2SAT 99; BMI 26.1
--- NOTE | 2020-11-29 07:06 | PCM.HP.BLA ---
Problem List (1) Change in bowel habit Status: Acute History and Physical Date of Admission: 11/29/20 Intake Visit Reasons: CSCOPE/ ABDOMINAL DISCOMFORT Chief Complaint: Prolia Allergies cetirizine [From Zyrtec] Allergy (Verified 11/14/20 09:57) Shortness of breath soy Allergy (Verified 11/14/20 09:57) Shortness of breath Sulfa (Sulfonamide Antibiotics) Allergy (Verified 11/14/20 09:57) Hives aspirin Adverse Reaction (Severe, Verified 11/14/20 09:57) Upset stomach tetanus and diphtheria toxoids Adverse Reaction (Severe, Verified 11/14/20 09:57) Unknown alendronate sodium [From Fosamax] Adverse Reaction (Verified 11/14/20 09:57) Nausea ibuprofen Adverse Reaction (Verified 11/14/20 09:57) Upset Stomach methotrexate Adverse Reaction (Verified 11/14/20 09:57) elevated liver enzymes oxycodone [From Percocet] Adverse Reaction (Verified 11/14/20 09:57) unable to urinate raloxifene [From Evista] Adverse Reaction (Verified 11/14/20 09:57) Nausea risedronate sodium [From Actonel] Adverse Reaction (Verified 11/14/20 09:57) Nausea ppi Allergy (Uncoded 11/14/20 09:57) Unknown tapes Adverse Reaction (Uncoded 11/14/20 09:57) fragile skin/skin tears Medications Albuterol IH (ProAir) [Proair Hfa] 1 - 2 puff INHALATION Q4H PRN PRN 07/29/17 [History Confirmed 11/14/20] estradiol 0.025 mg/24 hr semiweekly transdermal patch 1 patch TRANSDERMAL DIRECTED patch 01/05/18 [History Confirmed 11/14/20] prednisone 5 mg tablet 5 mg PO DAILY tab 11/28/18 [History Confirmed 11/14/20] rosuvastatin 5 mg tablet 5 mg PO DAILY 11/28/18 [History Confirmed 11/14/20] azithromycin 250 mg tablet 250 mg PO DAILY 05/25/19 [History Confirmed 11/14/20] gabapentin 100 mg capsule 100 mg PO BID 05/25/19 [History Confirmed 11/14/20] acetaminophen 500 mg tablet 1,000 mg PO TID tab 02/14/20 [History Confirmed 11/14/20] aspirin 81 mg tablet,delayed release 81 mg PO DAILY tab 02/14/20 [History Confirmed 11/14/20] cholecalciferol (vitamin D3) 50 mcg (2,000 unit) capsule 4,000 unit PO DAILY cap 02/14/20 [History Confirmed 11/14/20] cyclobenzaprine 5 mg tablet 5 mg PO DAILY tab 02/14/20 [History Confirmed 11/14/20] guaifenesin 1,200 mg tablet, extended release 12 hr 1,200 mg PO BID 02/14/20 [History Confirmed 11/14/20] tramadol 50 mg tablet 25 mg PO Q8H tab 02/14/20 [History Confirmed 11/14/20] metoprolol succinate 25 mg tablet,extended release 24 hr 12.5 mg PO DAILY #45 tab 10/29/20 [Rx Confirmed 11/14/20] ixekizumab 80 mg/mL subcutaneous auto-injector 80 mg SC Q4W 11/14/20 [History Confirmed 11/14/20] omeprazole 40 mg capsule,delayed release ea PO 11/14/20 [History Confirmed 11/14/20] PFS Medical History (Updated 11/14/20 @ 10:[address] 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) Sinus tachycardia (Chronic) Atrial septal defect (Chronic) Surgical History (Updated 11/14/20 @ 09:55 by Britt Oreilly) History of hernia surgery (Acute) History of rectal fissure (Acute) History of lung surgery (Acute) Hx of hysterectomy (Acute) Hx of foot surgery (Acute) Hx of shoulder surgery (Acute) Hx of cholecystectomy (Resolved) Family History Father Cancer CVA (cerebral vascular accident) Brother Diabetes Brother Cancer Sister Cancer Other Family history of CVA HPI HPI HPI: BOO VILLEDA, is a 70 F who presents to the office today for surgical consultation regarding a change of bowel habits. The patient is referred by Dr Adria Fernando and a written copy my surgical consult recommendations will be returned to him. The patient's most recent endoscopy was performed by Dr. Kane Renee October 19, 2014. That included both an upper and lower endoscopy. Biopsies of the stomach showed reactive gastropathy. H. pylori was negative. Random colonic biopsies showed hyperplastic polyp and multiple fragments of unremarkable colonic mucosa. The patient states that previously she had had a remote colonoscopy done by car rental deliverer Dr. Robel Booker showing microcytic colitis. She states she was having rectal bleeding at that time. She denies any particular medical treatment at that time. She states that she change the type of milk products she was drinking. On this occasion he is complaining of intermittent episodes of severe crampy abdominal pain. No bright red blood per rectum or melena. No weight loss. No nausea or vomiting. It is of additional note that over the past year she has had investigations. At the [facility] August 22, 2019 a right upper quadrant ultrasound was obtained showing evidence of post cholecystectomy. Common bile duct was 13.1 mm. March 29 patient had a esophagram. This was felt to be normal. April 04, 2020 the patient had a nuclear medicine gastric emptying study. This was felt to be normal. July 29, 2020 liver function tests were obtained and are normal except for an alkaline phosphatase of 121. As of July 29 2020 white blood cell count was 14.1 with hemoglobin 12.9 hematocrit 40.6 platelet count 476,000. The patient states that she has arthritis and has been on prednisone therapy for 10 years because she is intolerant to other medications. Family history is negative for colon cancer or colon polyps. No history of DVT HPI HPI HPI: BOO VILLEDA, is a 70 F who presents to the office today for Exam Const General: cooperative, comfortable, no acute distress Nutritional Appearance: average body habitus Orientation: alert, awake [facility] Head: normal to inspection Eyes General: appearance normal, both eyes and all related structures Resp Effort & Inspection: normal respiratory effort Auscultation: clear to auscultation bilaterally Cardio Rate: regular rate Rhythm: regular rhythm GI Palpation: soft, no hepatosplenomegaly Auscultation: normal bowel sounds Musc Cervical Spine: normal cervical lordosis Neuro Cognition: normal cognition Extrem General: no calf tenderness Psych Affect: normal affect Assessment & Plan Problems 1. Change in bowel habit R19.4 Plan I recommend to the patient a colonoscopy with possible biopsy or polypectomy as indicated. Previous colonoscopy October 2014. Crampy abdominal pain change of bowel habit difficulty with defecation. Anticipate using monitored anesthesia care. She is aware of the technique, benefit, risk, alternatives. She notes a remote history of biopsy-proven microcytic colitis. This was not identified on her most recent colonoscopy of 2013. She has had an opportunity to ask and have questions answered. We will schedule procedure at her discretion. I appreciate the opportunity of assisting with her surgical care. Copy: Dr dAria Ramires M.D., F.A.C.S. Coding Level of Care Code 01096 Diagnoses Change in bowel habit R19.4 I have re-examined the patient. There are no clinical changes since date of exam.
[2020-11-29] MEDS: Lactated Ringers 1,000 ML 100 ML IV (07:08)
[2020-11-29 07:15] LABS: Bedside Glucose 82 mg/dL (70-110)
--- NOTE | 2020-11-29 07:30 | COLBX_PTH ---
PATIENT: BOO VILLEDA LOC: EN U#:[id number] AGE/SX: 70/F ROOM: RE11/29/[address]: Dr. Jagdish Ramires MD : 1950 BED: DIS: 11/29/2020 SPEC #: [id number] RECD: 11/29/20 09:59 STATUS: BLOSSOM MAHARAJJanie #: [id number] OSCAR: 11/29/20 07:[address]: Jagdish Ramires DEPT: SURGICAL PATHOLOGY RECD BY: Charu Gallegos ENTERED: 11/29/20 11:17 SP TYPE: COLON BX OTHR DR: Dr. Adria Fernando MD Tissues: COLON BIOPSY Procedures: Surgery Specimen Level IV HEADER OPERATION: Colonoscopy (MAC) PRE-OP DIAGNOSIS: Change in bowel habit TISSUE SUBMITTED: Random colon biopsies MICROSCOPIC DIAGNOSIS Colon, random biopsy: No pathologic change. AM:terri 12/02/2020 MICROSCOPIC DESCRIPTION Slides are reviewed. GROSS DESCRIPTION Received in fixative is one container labeled with the patient's name and designated random colon biopsy. The specimen consists of multiple irregular fragments of light vieira soft tissue that in aggregate measure 1 x 0.5 x 0.1 cm. The specimen is totally submitted in one cassette. / AM:terri 11/29/20 TC:5 CPT: 19593
[2020-11-29 08:41] VITALS: BP 116/69; BP 124/71; PULSE 91; RESP 16; TEMP 36.3; O2SAT 96
[2020-11-29 08:45] VITALS: BP 113/63; BP 124/71; PULSE 16; RESP 16; O2SAT 99
--- NOTE | 2020-11-29 08:45 | OP.CCLET_ITS ---
11/29/2020 Adria Fernando [address] [place] [address] Re : Colonoscopy procedure for Enedina Blandon Dear Dr. Fernando This procedure was performed on Sunday, November 29, 2020. My impressions and recommendations are as follows: Impressions : - Non-thrombosed external hemorrhoids, non-thrombosed internal hemorrhoids and internal hemorrhoids that prolapse with straining, but spontaneously regress to the resting position (Grade II) found on digital rectal exam. - Diverticulosis in the sigmoid colon and in the descending colon. Biopsied. Recommendations : - Discharge patient to home. - Resume previous diet. - Continue present medications. - Repeat colonoscopy in 10 years for screening purposes. - Telephone my office for pathology results in 1 week. My findings are described in the full procedure note, which is enclosed. If I can be of further assistance, please feel free to contact me at Doctor phone number(s): Work: . Sincerely, Jagdish Ramires MD 11/29/2020 8:44:45 AM This report has been signed electronically.
--- NOTE | 2020-11-29 08:45 | OP.COLON_ITS ---
Patient Name: Enedina Blandon Procedure Date: 11/29/2020 7:58 AM Date of : 1950 Age: 70 Procedure: Colonoscopy Indications: Change in bowel habits Providers: Jagdish Ramires MD Referring MD: Adria Fernando Medicines: See the Anesthesia note for documentation of the administered medications Patient Profile: Last Colonoscopy: October 2014. Complications: No immediate complications. Procedure: Pre-Anesthesia Assessment: - Prior to the procedure, a History and Physical was performed, and patient medications and allergies were reviewed. The patient's tolerance of previous anesthesia was also reviewed. The risks and benefits of the procedure and the sedation options and risks were discussed with the patient. All questions were answered, and informed consent was obtained. Prior Anticoagulants: The patient has taken no previous anticoagulant or antiplatelet agents. ASA Grade Assessment: II - A patient with mild systemic disease. After reviewing the risks and benefits, the patient was deemed in satisfactory condition to undergo the procedure. After I obtained informed consent, the scope was passed under direct vision. Throughout the procedure, the patient's blood pressure, pulse, and oxygen saturations were monitored continuously. The pediatric colonoscope was introduced through the anus and advanced to the cecum, identified by appendiceal orifice and ileocecal valve. The colonoscopy was performed without difficulty. The patient tolerated the procedure well. The quality of the bowel preparation was good. The ileocecal valve was photographed. Scope In: 8:22:48 AM Scope Withdrawal Time 0 hours 10 minutes 45 seconds Scope Out: 8:38:37 AM Total Procedure Duration Time 0 hours 15 minutes 49 seconds Findings: The digital rectal exam findings include non-thrombosed external hemorrhoids, non-thrombosed internal hemorrhoids and internal hemorrhoids that prolapse with straining, but spontaneously regress to the resting position (Grade II). Multiple diverticula were found in the sigmoid colon and descending colon. Biopsies for histology were taken with a cold forceps from the entire colon for evaluation of microscopic colitis. Impression: - Non-thrombosed external hemorrhoids, non-thrombosed internal hemorrhoids and internal hemorrhoids that prolapse with straining, but spontaneously regress to the resting position (Grade II) found on digital rectal exam. - Diverticulosis in the sigmoid colon and in the descending colon. Biopsied. Recommendation: - Discharge patient to home. - Resume previous diet. - Continue present medications. - Repeat colonoscopy in 10 years for screening purposes. - Telephone my office for pathology results in 1 week. Procedure Code(s): --- Professional --- 38975, Colonoscopy, flexible; with biopsy, single or multiple Diagnosis Code(s): --- Professional --- K64.1, Second degree hemorrhoids K64.4, Residual hemorrhoidal skin tags R19.4, Change in bowel habit K57.30, Diverticulosis of large intestine without perforation or abscess without bleeding CPT copyright 2017 [employer]. All rights reserved. The codes documented in this report are preliminary and upon milker machine review may be revised to meet current compliance requirements. Jagdish Ramires MD 11/29/2020 8:44:45 AM This report has been signed electronically. Number of Addenda: 0 Note Initiated On: 11/29/2020 7:58 AM
[2020-11-29 08:50] VITALS: BP 111/63; BP 124/71; PULSE 90; RESP 16; O2SAT 99
[2020-11-29 08:56] VITALS: BP 111/57; BP 124/71; PULSE 89; RESP 16; TEMP 36.1; O2SAT 99
[2020-11-29 09:15] VITALS: BP 124/71
== END 2020-11-29 09:20 | disposition home or self-care (01) ==
LOC: EN 06:24 → AC 06:25
PROVIDERS: PCP Family Medicine; Referring Provider Family Medicine; Visit Provider Surgery
PROC: 0DJD8ZZ Inspection of Lower Intestinal Tract, Via Natural or Artificial Opening Endoscopic (ICD-10-PCS; CPT 45378; principal; 2020-11-29 07:25)
DX: K64.1 Second degree hemorrhoids (principal); K57.30 Diverticulosis of large intestine without perforation or abscess without bleeding; K21.9 Gastro-esophageal reflux disease without esophagitis; M19.90 Unspecified osteoarthritis, unspecified site; Z86.73 Personal history of transient ischemic attack (TIA), and cerebral infarction without residual deficits; E78.00 Pure hypercholesterolemia, unspecified; E09.9 Drug or chemical induced diabetes mellitus without complications; T38.0X5A Adverse effect of glucocorticoids and synthetic analogues, initial encounter; Z20.822 Contact with and (suspected) exposure to COVID-19; Z79.52 Long term (current) use of systemic steroids; Z79.02 Long term (current) use of antithrombotics/antiplatelets; Z79.899 Other long term (current) drug therapy
CPT/HCPCS: 45380; 82962; 87426; 88305; C9803; J7120; J2405

== ENCOUNTER → 2021-01-21 15:05 | Outpatient (CLI) | payer MEDICARE, OTHER, SELFPAY ==
[2021-01-21 15:09] LABS: Bacteria 0 SEEN /hpf (None Seen); Mucous, Urine 0 SEEN /hpf (<or=2+); Red Blood Cells-Urine 0 SEEN /hpf (0-5); White Blood Cells 0 SEEN /hpf (0-5)
[2021-01-21 17:59] LABS: Color, Urine Yellow (Yellow); Glucose, Dipstick Normal (Normal); Ketone-Dipstick Negative (Negative); Leukocyte Esterase-Dipstick Negative /ul (Negative); Nitrite-Dipstick Negative (Negative); Occult Blood-Urine Negative /ul (Negative); Protein-Dipstick Negative (Negative); Specific Gravity, Urine 1.015 (1.002-1.030); Urine Bilirubin Dipstick Negative (Negative); Urine Clarity Clear (Clear); Urine Urobilinogen Normal (Normal)
[2021-01-21 18:01] LABS: Absolute Lymphocyte Count 1.04 X10^3/uL (0.83-4.51); Absolute Neutrophil Count 6.8 X10^3/uL (2.0-7.7); Basophil# 0.07 X10^3/uL; Basophil% 0.8 % (0-1); Eosinophil# 0.03 X10^3/uL; Eosinophils% 0.3 % (0-5); Hematocrit 41.6 % (37-47); Hemoglobin 12.8 g/dL (12.0-15.0); Lymphocyte # 1.04 X10^3/ul (4.0); Mean Corp Hgb Conc 30.8 g/dL (32-36); Mean Corpuscular Hgb 29.5 pg (27.0-32.0); Mean Corpuscular Volume 95.9 fL (81-99); Mean Platelet Vol. 10.5 fl (6.2-12.0); Monocyte# 0.62 X10^3/uL; Monocyte% 7.2 % (0-10); NRBC Flagged by Analyzer 0 % (0-5); Neutrophil # 6.79 X10^3/uL (2.7-7.7); Neutrophil % 78.7 % (47-70); Platelet Count 432 K/mm3 (150-450); RBC Distribution Width SD 46.2 fl (35.1-43.9); Red Blood Count 4.34 M/mm3 (4.2-5.4); White Blood Count 8.6 K/mm3 (4.4-11.0)
[2021-01-21 18:07] LABS: Squamous Epithelial Cells - UA 0-5 SEEN /hpf (5-10)
[2021-01-21 18:34] LABS: ALB/GLOB Ratio 1.1 RATIO (0.9-2.4); AST(SGOT) 21 U/L (15-37); Alanine Aminotransfer ALT/SGPT 19 U/L (13-56); Albumin, Serum 3.6 g/dL (3.2-5.0); Alkaline Phosphatase 100 U/L (45-117); Anion Gap 6 (5-15); BUN 15 mg/dL (7-18); BUN/Creat Ratio 17.6 RATIO (10-20); Calcium,Total 9.2 mg/dL (8.5-10.1); Chloride 108 mmol/L (98-107); Cholesterol 156 mg/dL (200); Creatinine, Serum 0.85 mg/dL (0.55-1.02); EST Glomerular Filtration Rate 70 mL/min (>60); Est Glom Filt Rate - Afr Amer 84 mL/min (>60); Globulin 3.4 g/dL (2.2-4.2); Glucose 118 mg/dL (74-106); High Density Lipoprotein 76 mg/dL; Potassium 4.1 mmol/L (3.5-5.1); Sodium Level 143 mmol/L (136-145); Triglycerides 95 mg/dL; Very Low Density Lipoprotein 19 mg/dL (5-40)
== END ==
PROVIDERS: PCP Family Medicine; Visit Provider Family Medicine
DX: J44.9 Chronic obstructive pulmonary disease, unspecified (principal); E55.9 Vitamin D deficiency, unspecified; E78.5 Hyperlipidemia, unspecified
CPT/HCPCS: 36415; 80053; 80061; 81001; 82306; 85025

== ENCOUNTER → 2021-03-19 09:55 | Outpatient (CLI) | payer MEDICARE, OTHER, SELFPAY ==
[2021-03-19 11:58] LABS: Amphetamine Urine VISTA NEGATIVE (<1000 ng/mL); Barbiturate Urine VISTA NEGATIVE (< 200 ng/mL); Benzodiazepine Urine VISTA NEGATIVE (< 200 ng/mL); Cocaine Urine VISTA NEGATIVE (< 300 ng/mL); Ecstacy Urine VISTA NEGATIVE (< 500 ng/mL); Methadone Urine VISTA NEGATIVE (< 300 ng/mL); PCP Urine VISTA NEGATIVE (< 25 ng/mL); THC Urine VISTA NEGATIVE (< 50 ng/mL); Vista UDS pH Range 6
== END ==
PROVIDERS: PCP Family Medicine; Referring Provider Anesthesiology Pain Medicine; Visit Provider Anesthesiology Pain Medicine
DX: F11.20 Opioid dependence, uncomplicated (principal)
CPT/HCPCS: 80307

== ENCOUNTER → 2021-04-18 09:54 | Outpatient (CLI) | payer MEDICARE, OTHER, SELFPAY ==
[2020-02-14 10:52] VITALS: BMI 25.4
[2021-04-18 10:00] VITALS: BP 139/67; PULSE 108; RESP 16; TEMP 36.5; O2SAT 99; BMI 26.4
[2021-04-18] MEDS: DENOSUMAB 60 MG/ML SC (10:10)
== END ==
PROVIDERS: PCP Family Medicine; Referring Provider Internal Medicine Rheumatology; Visit Provider Internal Medicine Rheumatology
DX: M81.0 Age-related osteoporosis without current pathological fracture (principal)
CPT/HCPCS: 96372; J0897

== ENCOUNTER → 2021-05-20 14:31 | Outpatient (CLI) | payer MEDICARE, OTHER, SELFPAY ==
[2021-04-18 10:00] VITALS: BMI 26.4
[2021-05-20 17:51] LABS: Absolute Neutrophil Count 9.1 X10^3/uL (2.0-7.7); Basophil# 0.05 X10^3/uL; Basophil% 0.5 % (0-1); Eosinophil# 0.02 X10^3/uL; Eosinophils% 0.2 % (0-5); Hematocrit 42.3 % (37-47); Hemoglobin 13.1 g/dL (12.0-15.0); Lymphocyte % 8.3 % (19-41); Mean Corpuscular Hgb 29.6 pg (27.0-32.0); Mean Corpuscular Volume 95.5 fL (81-99); Mean Platelet Vol. 10.2 fl (6.2-12.0); Monocyte# 0.58 X10^3/uL; Monocyte% 5.4 % (0-10); NRBC Flagged by Analyzer 0 % (0-5); Neutrophil # 9.12 X10^3/uL (2.7-7.7); Neutrophil % 84.1 % (47-70); Platelet Count 422 K/mm3 (150-450); RBC Distribution Width SD 49.6 fl (35.1-43.9); Red Blood Count 4.43 M/mm3 (4.2-5.4); White Blood Count 10.8 K/mm3 (4.4-11.0)
[2021-05-20 18:06] LABS: Hemoglobin A1c 5.8 % (3.8-5.6)
[2021-05-20 18:10] LABS: Microalbumin:Creatinine Ratio 10.5 mg/g CRE (<30 mg/g CRE)
[2021-05-20 18:18] LABS: ALB/GLOB Ratio 1.1 RATIO (0.9-2.4); AST(SGOT) 22 U/L (15-37); Alanine Aminotransfer ALT/SGPT 26 U/L (13-56); Albumin, Serum 3.6 g/dL (3.2-5.0); Alkaline Phosphatase 98 U/L (45-117); Anion Gap 7 (5-15); BUN 16 mg/dL (7-18); BUN/Creat Ratio 17.2 RATIO (10-20); Calcium,Total 8.8 mg/dL (8.5-10.1); Chloride 109 mmol/L (98-107); Cholesterol 166 mg/dL (200); Creatinine, Serum 0.93 mg/dL (0.55-1.02); EST Glomerular Filtration Rate 63 mL/min (>60); Est Glom Filt Rate - Afr Amer 76 mL/min (>60); Globulin 3.4 g/dL (2.2-4.2); Glucose 151 mg/dL (74-106); High Density Lipoprotein 67 mg/dL; Potassium 3.8 mmol/L (3.5-5.1); Sodium Level 142 mmol/L (136-145); Triglycerides 111 mg/dL; Very Low Density Lipoprotein 22 mg/dL (5-40)
== END ==
PROVIDERS: PCP Family Medicine; Visit Provider Family Medicine
DX: E78.5 Hyperlipidemia, unspecified (principal); E55.9 Vitamin D deficiency, unspecified; R73.02 Impaired glucose tolerance (oral)
CPT/HCPCS: 80053; 80061; 82043; 82306; 82570; 83036; 85025

== ENCOUNTER → 2021-06-02 13:00 | Outpatient (CLI) | payer MEDICARE, OTHER, SELFPAY ==
[2021-04-18 10:00] VITALS: BMI 26.4
--- NOTE | 2021-06-02 13:01 | ART_ITS ---
Reason For Study: PAD Procedure A bilateral lower extremity continuous wave Doppler with analog waveform analysis,segmental pressures,and ankle brachial indexes with exercise. Left Segmental Pressures Left brachial= 126mmHg. Left posterior tibial artery = 132mmHg. Left dorsalis pedis artery = 138mmHg. Left digit = 62 mmHg. The left dorsalis pedis waveforms are triphasic. The left posterior tibial artery waveforms are triphasic. Right Segmental Pressures Right brachial= 129mmHg. Right calf = 141mmHg. Right posterior tibial artery = 126mmHg. Right dorsalis pedis artery = 128mmHg. Right digit = 106 mmHg. The right dorsalis pedis waveforms are triphasic. The right posterior tibial artery waveforms are triphasic. Indices The right ankle brachial index by the dorsalis pedis is 0.99. The right ankle brachial index by the posterior tibial artery is 0.98. The right digital-brachial index is 0.82. The right post exercise ankle brachial index is 1.10. The left ankle brachial index by the dorsalis pedis is 1.07. The left ankle brachial index by the posterior tibial artery is 1.02. The left digital-brachial index is 0.48. The left post exercise ankle brachial index is 1.15. VL/Lower Ext Art Exam w/ Exercise Interpretation Summary Normal bilateral lower extremity ankle-brachial indices at rest with normal zelalem ateral posterior tibial and dorsalis pedis triphasic Doppler waveforms Right resting ankle-brachial index 0.99 with post exercise index 1.10 Left ankle-brachial resting index 1.07 with post exercise index 1.15 Bilateral exercise ankle-brachial indices are normal Ordering Physician: Adria Fernando Referring Physician: Adria Fernando Performed By: Charisma Pretty RVT
== END ==
PROVIDERS: PCP Family Medicine; Referring Provider Family Medicine; Visit Provider Family Medicine
DX: I73.9 Peripheral vascular disease, unspecified (principal)
CPT/HCPCS: 93924

== ENCOUNTER → 2021-08-19 14:29 | Outpatient (CLI) | payer MEDICARE, OTHER, SELFPAY ==
[2021-08-19 15:35] LABS: Anion Gap 8 (5-15); BNP,B-Type NATRIURETIC PEPTIDE 25.2 pg/mL (0-100); BUN 19 mg/dL (7-18); BUN/Creat Ratio 26.6 RATIO (10-20); Calcium,Total 8.7 mg/dL (8.5-10.1); Chloride 106 mmol/L (98-107); Creatinine, Serum 0.72 mg/dL (0.55-1.02); EST Glomerular Filtration Rate 85 mL/min (>60); Est Glom Filt Rate - Afr Amer 103 mL/min (>60); Glucose 141 mg/dL (74-106); Potassium 3.2 mmol/L (3.5-5.1); Sodium Level 141 mmol/L (136-145)
== END ==
PROVIDERS: PCP Family Medicine; Referring Provider Nurse Practitioner Family; Visit Provider Nurse Practitioner Family
DX: R00.0 Tachycardia, unspecified (principal); R06.00 Dyspnea, unspecified
CPT/HCPCS: 36415; 80048; 83880

== ENCOUNTER → 2021-08-26 | Outpatient (CLI) | payer MEDICARE, OTHER, SELFPAY ==
[2021-08-26 17:05] LABS: Absolute Neutrophil Count 7.9 X10^3/uL (2.0-7.7); Basophil# 0.07 X10^3/uL; Basophil% 0.6 % (0-1); Eosinophil# 0.03 X10^3/uL; Eosinophils% 0.3 % (0-5); Hematocrit 41.2 % (37-47); Hemoglobin 13.1 g/dL (12.0-15.0); Lymphocyte % 17.4 % (19-41); Mean Corp Hgb Conc 31.8 g/dL (32-36); Mean Corpuscular Hgb 29.2 pg (27.0-32.0); Mean Platelet Vol. 9.7 fl (6.2-12.0); Monocyte# 0.91 X10^3/uL; Monocyte% 8.3 % (0-10); NRBC Flagged by Analyzer 0 % (0-5); Neutrophil # 7.87 X10^3/uL (2.7-7.7); Platelet Count 504 K/mm3 (150-450); RBC Distribution Width CV 14.2 % (11.6-14.6); RBC Distribution Width SD 47.6 fl (35.1-43.9); Red Blood Count 4.48 M/mm3 (4.2-5.4); White Blood Count 10.9 K/mm3 (4.4-11.0)
[2021-08-26 18:08] LABS: AST(SGOT) 35 U/L (15-37); Alanine Aminotransfer ALT/SGPT 26 U/L (13-56)
[2021-09-02 16:08] LABS: QNTFERON TB Mitogen Value > 10.00 IU/mL (.); QNTFERON TB Nil Value 0.08 IU/mL (.); QNTFERON TB1+ Ag Value 0.05 IU/mL (.); QNTFERON TB2+ Ag Value 0.03 IU/mL (.)
[2021-09-02 16:39] LABS: QNTIFERON TB Positive Criteria Negative (Negative)
== END | disposition home or self-care (01) ==
LOC: LABSPEC 16:32
PROVIDERS: PCP Family Medicine; Referring Provider Dermatology; Visit Provider Dermatology
DX: Z79.899 Other long term (current) drug therapy (principal)
CPT/HCPCS: 36415; 84450; 84460; 85025; 86480

== ENCOUNTER → 2021-09-04 10:52 | Outpatient (CLI) | payer MEDICARE, OTHER, SELFPAY ==
--- NOTE | 2021-09-04 10:57 | ECHOD_ITS ---
Reason For Study: DYSPNEA/SOB Procedure This was a 2D Doppler, Color Flow transthoracic echocardiogram. The exam was of adequate technical quality. Exam performed in department. Left Ventricle Normal LV size. Left ventricular systolic function is normal. The estimated ejection fraction is 60 %. No evidence for diastolic dysfunction. No regional wall motion abnormalities noted. Right Ventricle Normal RV size. Normal systolic function. Atria Normal left atrium. Normal right atrium. 2D echocardiographic images c/w an interatrial septum closure device. No doppler evidence for ASD. Mitral Valve There is mild mitral annular calcification. Extension of the mitral annular calcification on the base of the posterior mitral valve leaflet. Trivial mitral valve insufficiency. Tricuspid Valve Normal tricuspid valve. Trivial tricuspid valve insufficiency. Right ventricular systolic pressure estimated to be 24 mmHg. Aortic Valve Trisinus/trileaflet aortic valve. Mild diffuse aortic valve thickening. Pulmonic Valve The pulmonic valve is not well visualized. Great Vessels Normal sized aortic root. Pericardium/Pleural No pericardial effusion. MMode/2D Measurements & Calculations LVIDd: 3.5 cm IVSd: 0.87 cm Ao root diam: 2.9 cm LVIDs: 2.5 cm LVPWd: 0.91 cm RVDd: 3.2 cm FS: 30.2 % LAV(MOD-bp): 22.2 ml LVAd ap4: 23.6 cm2 SV(MOD-sp4): 37.3 ml LAV(MOD-bp) Indexed: 14.5 ml/m2 LVLd ap4: 7.4 cm LAV(MOD-sp2): 22.8 ml EDV(MOD-sp4): 63.0 ml LAV(MOD-sp4): 20.9 ml EDV(sp4-el): 64.1 ml LVAs ap4: 13.5 cm2 LVLs ap4: 6.0 cm ESV(MOD-sp4): 25.7 ml ESV(sp4-el): 25.7 ml EF(MOD-sp4): 59.2 % EF(sp4-el): 59.9 % SV(sp4-el): 38.4 ml LA A4 area: 10.5 cm2 LA dimension(2D): 2.8 cm RA A4 area: 9.8 cm2 Time Measurements MV dec time: 0.26 sec Doppler Measurements & Calculations MV E max vinicius: 71.8 cm/sec Lat Peak E' Vinicius: 10.1 cm/sec Med Peak E' Vinicius: 6.7 cm/sec MV A max vinicius: 89.9 cm/sec E/E' lat: 7.1 E/E' med: 10.7 MV E/A: 0.80 Ao V2 max: 111.0 cm/sec LV V1 max: 91.8 cm/sec PA V2 max: 101.0 cm/sec Ao max P.9 mmHg LV V1 max P.4 mmHg TR max vinicius: 230.0 cm/sec TR max P.2 mmHg ECHO/Echo Complete Interpretation Summary Left ventricular systolic function is normal. The estimated ejection fraction is 60 %. There is mild mitral annular calcification. Extension of the mitral annular calcification on the base of the posterior mitr al valve leaflet. Trivial mitral valve insufficiency. Trivial tricuspid valve insufficiency. Mild diffuse aortic valve thickening. Right ventricular systolic pressure estimated to be 24 mmHg. No evidence for diastolic dysfunction. 2D echocardiographic images c/w an interatrial septum closure device. No doppler evidence for ASD. Ordering Physician: Regina Connelly/Reagan Jimenez Referring Physician: REGINA JACK Performed By: Elba Wiley RDCS
== END ==
PROVIDERS: PCP Family Medicine; Referring Provider Nurse Practitioner Family; Visit Provider Nurse Practitioner Family
DX: R06.00 Dyspnea, unspecified (principal); Q21.1 Atrial septal defect; R00.0 Tachycardia, unspecified; R00.2 Palpitations
CPT/HCPCS: 93225; 93226; 93306

== ENCOUNTER → 2021-09-24 10:32 | Outpatient (CLI) | payer MEDICARE, OTHER, SELFPAY ==
[2021-09-24 12:20] LABS: Absolute Lymphocyte Count 1.12 X10^3/uL (0.83-4.51); Absolute Neutrophil Count 13.2 X10^3/uL (2.0-7.7); Basophil# 0.06 X10^3/uL; Basophil% 0.4 % (0-1); Eosinophil# 0.03 X10^3/uL; Eosinophils% 0.2 % (0-5); Hematocrit 40.2 % (37-47); Hemoglobin 12.8 g/dL (12.0-15.0); Lymphocyte # 1.12 X10^3/ul (0.83-4.51); Lymphocyte % 7.2 % (19-41); Mean Corp Hgb Conc 31.8 g/dL (32-36); Mean Corpuscular Volume 91.2 fL (81-99); Mean Platelet Vol. 10.3 fl (6.2-12.0); Monocyte# 0.95 X10^3/uL; Monocyte% 6.1 % (0-10); NRBC Flagged by Analyzer 0 % (0-5); Neutrophil # 13.18 X10^3/uL (2.7-7.7); Neutrophil % 85.3 % (47-70); Platelet Count 436 K/mm3 (150-450); RBC Distribution Width CV 14.1 % (11.6-14.6); RBC Distribution Width SD 47.6 fl (35.1-43.9); Red Blood Count 4.41 M/mm3 (4.2-5.4); White Blood Count 15.5 K/mm3 (4.4-11.0)
[2021-09-24 12:53] LABS: AST(SGOT) 17 U/L (15-37); Alanine Aminotransfer ALT/SGPT 17 U/L (13-56); Albumin, Serum 3.7 g/dL (3.2-5.0); Alkaline Phosphatase 95 U/L (45-117); Anion Gap 6 (5-15); BUN 20 mg/dL (7-18); BUN/Creat Ratio 24.7 RATIO (10-20); Calcium,Total 9.5 mg/dL (8.5-10.1); Chloride 104 mmol/L (98-107); Cholesterol 159 mg/dL (200); Creatinine, Serum 0.81 mg/dL (0.55-1.02); EST Glomerular Filtration Rate 74 mL/min (>60); Est Glom Filt Rate - Afr Amer 89 mL/min (>60); Globulin 3.7 g/dL (2.2-4.2); Glucose 87 mg/dL (74-106); High Density Lipoprotein 71 mg/dL; Potassium 3.6 mmol/L (3.5-5.1); Protein, Total 7.4 g/dL (6.4-8.2); Sodium Level 139 mmol/L (136-145); Triglycerides 149 mg/dL; Very Low Density Lipoprotein 30 mg/dL (5-40)
[2021-09-24 12:56] LABS: Vitamin D,25 Hydroxy 39.6 ng/mL
[2021-09-24 12:58] LABS: Hemoglobin A1c 5.5 % (3.8-5.6)
== END ==
PROVIDERS: PCP Family Medicine; Referring Provider Family Medicine; Visit Provider Family Medicine
DX: E78.5 Hyperlipidemia, unspecified (principal); E55.9 Vitamin D deficiency, unspecified; R73.02 Impaired glucose tolerance (oral)
CPT/HCPCS: 36415; 80053; 80061; 82306; 83036; 85025

== ENCOUNTER → 2021-10-17 09:53 | Outpatient (CLI) | payer MEDICARE, OTHER, SELFPAY ==
[2021-10-17] MEDS: DENOSUMAB 60 MG/ML SC (10:00)
[2021-10-17 10:02] VITALS: BP 133/66; PULSE 84; RESP 16; TEMP 36.4; O2SAT 98
== END ==
PROVIDERS: PCP Family Medicine; Referring Provider Internal Medicine Rheumatology; Visit Provider Internal Medicine Rheumatology
DX: M81.0 Age-related osteoporosis without current pathological fracture (principal)
CPT/HCPCS: 96372; J0897

== ENCOUNTER 2021-12-30 13:41 | Outpatient (CLI) | payer MEDICARE, OTHER, SELFPAY ==
--- NOTE | 2021-12-30 14:35 | RAD_ITS ---
STUDY: XR Knee 1 or 2 Views 12/30/2021 4:19 PM REASON FOR EXAM: Female, 71 years old. PAIN TECHNIQUE: XR Knee 1 or 2 Views COMPARISON: None FINDINGS: Normal visualized distal femur. Normal visualized proximal tibia and fibula. Normal proximal tibiofibular articulation. Normal medial femorotibial compartment. Normal lateral femorotibial compartment. Normal patellofemoral articulation. The soft tissue structures are unremarkable. RAD/Knee 1 or 2 Views IMPRESSION: There are no acute findings. Electronically Signed: Douglas Rey MD at 16:20 EST ,
== END 2021-12-30 23:59 | disposition home or self-care (01) ==
LOC: RAD 13:47
PROVIDERS: PCP Family Medicine; Referring Provider Anesthesiology Pain Medicine; Visit Provider Anesthesiology Pain Medicine
DX: M25.562 Pain in left knee (principal)
CPT/HCPCS: 73560

== ENCOUNTER 2022-01-22 11:09 | Outpatient (CLI) | payer MEDICARE, OTHER, SELFPAY ==
[2022-01-22 11:19] LABS: Bacteria 0 SEEN /hpf (None Seen); Mucous, Urine 0 SEEN /hpf (<or=2+); Red Blood Cells-Urine 0 SEEN /hpf (0-5); White Blood Cells 0 SEEN /hpf (0-5)
[2022-01-22 12:08] LABS: Absolute Lymphocyte Count 1.32 X10^3/uL (0.83-4.51); Absolute Neutrophil Count 10.6 X10^3/uL (2.0-7.7); Basophil# 0.07 X10^3/uL; Basophil% 0.5 % (0-1); Eosinophil# 0.03 X10^3/uL; Eosinophils% 0.2 % (0-5); Hematocrit 42.2 % (37-47); Hemoglobin 13.4 g/dL (12.0-15.0); Lymphocyte # 1.32 X10^3/ul (0.83-4.51); Lymphocyte % 10.2 % (19-41); Mean Corp Hgb Conc 31.8 g/dL (32-36); Mean Corpuscular Hgb 29.5 pg (27.0-32.0); Mean Corpuscular Volume 92.7 fL (81-99); Mean Platelet Vol. 9.7 fl (6.2-12.0); Monocyte# 0.76 X10^3/uL; Monocyte% 5.9 % (0-10); NRBC Flagged by Analyzer 0 % (0-5); Neutrophil # 10.61 X10^3/uL (2.7-7.7); Platelet Count 422 K/mm3 (150-450); RBC Distribution Width CV 15.3 % (11.6-14.6); Red Blood Count 4.55 M/mm3 (4.2-5.4)
[2022-01-22 12:09] LABS: Color, Urine Yellow (Yellow); Glucose, Dipstick Normal (Normal); Ketone-Dipstick Negative (Negative); Leukocyte Esterase-Dipstick Negative /ul (Negative); Nitrite-Dipstick Negative (Negative); Occult Blood-Urine Negative /ul (Negative); Protein-Dipstick 15 mg/dl (Negative); Urine Bilirubin Dipstick Negative (Negative); Urine Clarity Clear (Clear); Urine Urobilinogen Normal (Normal)
[2022-01-22 12:15] LABS: Squamous Epithelial Cells - UA 0-5 SEEN /hpf (5-10)
[2022-01-22 12:25] LABS: Hemoglobin A1c 5.9 % (3.8-5.6)
[2022-01-22 12:46] LABS: Vitamin B12 216 pg/mL (211-911); Vitamin D,25 Hydroxy 45.1 ng/mL
[2022-01-22 12:53] LABS: AST(SGOT) 20 U/L (15-37); Alanine Aminotransfer ALT/SGPT 23 U/L (13-56); Albumin, Serum 3.7 g/dL (3.2-5.0); Alkaline Phosphatase 91 U/L (45-117); Anion Gap 6 (5-15); BUN 18 mg/dL (7-18); Calcium,Total 9.4 mg/dL (8.5-10.1); Chloride 105 mmol/L (98-107); Cholesterol 159 mg/dL (200); Creatinine, Serum 0.86 mg/dL (0.55-1.02); EST Glomerular Filtration Rate 69 mL/min (>60); Est Glom Filt Rate - Afr Amer 83 mL/min (>60); Globulin 3.6 g/dL (2.2-4.2); Glucose 101 mg/dL (74-106); High Density Lipoprotein 61 mg/dL; Potassium 3.8 mmol/L (3.5-5.1); Protein, Total 7.3 g/dL (6.4-8.2); Sodium Level 138 mmol/L (136-145); T4 Free Direct 0.91 ng/dL (0.76-1.46); Thyroid Stim Hormone (TSH) 0.82 uIU/mL (0.358-3.74); Triglycerides 119 mg/dL; Very Low Density Lipoprotein 24 mg/dL (5-40)
== END 2022-01-22 23:59 | disposition home or self-care (01) ==
LOC: MFPLAB 11:14
PROVIDERS: PCP Family Medicine; Referring Provider Family Medicine; Visit Provider Family Medicine
DX: E78.5 Hyperlipidemia, unspecified (principal); R73.02 Impaired glucose tolerance (oral); R53.83 Other fatigue; R41.3 Other amnesia; E55.9 Vitamin D deficiency, unspecified
CPT/HCPCS: 36415; 80053; 80061; 81001; 82306; 82607; 83036; 84439; 84443; 85025

== ENCOUNTER → 2022-02-23 | Outpatient (CLI) | payer MEDICARE, OTHER, SELFPAY ==
[2022-02-23 12:03] LABS: Amphetamine Urine VISTA NEGATIVE (<1000 ng/mL); Barbiturate Urine VISTA NEGATIVE (< 200 ng/mL); Benzodiazepine Urine VISTA NEGATIVE (< 200 ng/mL); Cocaine Urine VISTA NEGATIVE (< 300 ng/mL); Ecstacy Urine VISTA NEGATIVE (< 500 ng/mL); Methadone Urine VISTA NEGATIVE (< 300 ng/mL); PCP Urine VISTA NEGATIVE (< 25 ng/mL); THC Urine VISTA NEGATIVE (< 50 ng/mL); Vista UDS pH Range 4
== END | disposition home or self-care (01) ==
PROVIDERS: PCP Family Medicine; Referring Provider Anesthesiology Pain Medicine; Visit Provider Anesthesiology Pain Medicine
DX: F11.20 Opioid dependence, uncomplicated (principal)
CPT/HCPCS: 80307

== ENCOUNTER → 2022-03-12 | Outpatient (CLI) | payer MEDICARE, OTHER, SELFPAY ==
[2022-03-12 15:42] LABS: Vitamin B12 871 pg/mL (211-911)
[2022-03-26 11:11] LABS: Vitamin B1, Thiamine 163.3 nmol/L (66.5-200.0)
[2022-04-07 16:43] LABS: VITAMIN B6 4.8 ug/L (3.4-65.2)
== END | disposition home or self-care (01) ==
PROVIDERS: PCP Family Medicine; Referring Provider Family Medicine; Visit Provider Family Medicine
DX: E53.8 Deficiency of other specified B group vitamins (principal)
CPT/HCPCS: 36415; 82607; 84207; 84425

== ENCOUNTER → 2022-04-01 | Outpatient (CLI) | payer MEDICARE, OTHER, SELFPAY | END | disposition home or self-care (01) | LOC: SL 04-03 05:25 | PROVIDERS: PCP Family Medicine; Referring Provider Nurse Practitioner Acute Care; Visit Provider Nurse Practitioner Acute Care | DX: G47.10 Hypersomnia, unspecified (principal) | CPT/HCPCS: 95810 ==

== ENCOUNTER → 2022-04-02 | Outpatient (CLI) | payer MEDICARE, OTHER, SELFPAY ==
--- NOTE | 2022-04-02 06:45 | CT_ITS ---
STUDY: LOW DOSE CT LUNG CANCER SCREENING REASON FOR EXAM: Female, 71 years old. Smoker and gt; 50 pack years RADIATION DOSAGE (If Supplied By Facility): CTDIvol = ( 2.01 ) mGy, DLP = ( 63.69 ) mGycm TECHNIQUE: No contrast was administered. Low dose technique was utilized (average mAS-38 and kVp 120). 1.25 mm axial source images with a slice interval of 1.25-mm were reconstructed in lung windows. 2.5 mm axial source images with a slice interval of 2.5-mm were reconstructed in lung windows. 5.0 mm axial source images with a slice interval of 5.0-mm were reconstructed in soft tissue windows. COMPARISON: Comparison is made with prior study dated 11/04/2020. NODULES: No suspicious nodules are seen. Emphysema: Hyperinflation. Stable appearance of the lung apices with a soft tissue prominence more prominent in the right lung apex suggestive of a apical scarring. Emphysematous changes with bullous formation. Stable area of bronchiectasis and scarring in the anterior medial aspect of the right middle lobe. Endobronchial lesion: None Aorta: Atherosclerotic plaque formation of the aortic arch. CORONARY ARTERIES: Coronary artery calcification Heart: Unremarkable Pulmonary artery: Unremarkable Mediastinal nodes: Other chest and abdominal findings: CT/Low Dose CT Lung Screening IMPRESSION: Lung-RADS category 2 - Continue annual screening with LDCT in 12 months. IMPORTANT NOTES FOR USE: ACR Lung-RADS Version 1.1 Assessment Categories Release Date: 2018 Category: Coded 0-4 bases on nodule(s) with highest degree of suspicion. Negative screen is defined as categories 1 and 2; a positive screen is defined as categories 3 and 4. Category 3 and 4A nodules that are unchanged on interval CT should be coded as category 2, and individuals returned to screening in 12 months. Category 4X: Category 3 or 4 nodules with additional imaging findings that increase the suspicion of lung cancer, such as spiculation, GGN that doubles in size in 1 year, enlarged lymph notes, etc. Category Modifiers: S (significant finding unrelated to lung cancer) Electronically Signed: Teja Tobar MD at 9:00 EDT ,
== END | disposition home or self-care (01) ==
PROVIDERS: PCP Family Medicine; Referring Provider Nurse Practitioner Acute Care; Visit Provider Nurse Practitioner Acute Care
DX: Z87.891 Personal history of nicotine dependence (principal)
CPT/HCPCS: 71271

== ENCOUNTER → 2022-04-07 | Outpatient (CLI) | payer MEDICARE, OTHER, SELFPAY | END | disposition home or self-care (01) | LOC: MFPLAB 11:55 | PROVIDERS: PCP Family Medicine; Referring Provider Family Medicine; Visit Provider Nurse Practitioner Family | DX: Z00.00 Encounter for general adult medical examination without abnormal findings (principal) ==

== ENCOUNTER → 2022-04-10 | Outpatient (CLI) | payer MEDICARE, OTHER, SELFPAY ==
[2022-04-10 10:20] VITALS: BP 136/73; PULSE 91; RESP 14; TEMP 35.7; O2SAT 96
[2022-04-10] MEDS: DENOSUMAB 60 MG/ML SC (10:24)
== END | disposition home or self-care (01) ==
LOC: MEDOUTP 10:04
PROVIDERS: PCP Family Medicine; Referring Provider Internal Medicine Rheumatology; Visit Provider Internal Medicine Rheumatology
DX: M81.0 Age-related osteoporosis without current pathological fracture (principal)
CPT/HCPCS: 96372; J0897

== ENCOUNTER → 2022-05-07 | Outpatient (CLI) | payer MEDICARE, OTHER, SELFPAY ==
--- NOTE | 2022-05-08 05:39 | PFTCOMP_ITS ---
COMPLETE PULMONARY FUNCTION TEST INTERPRETATION Brief HPI: Patient is a 71-year-old female, currently under the care of Noemi Preston, who presents to [facility] for complete pulmonary function tests secondary to diagnosis of dyspnea. Respiratory therapist reports good effort and reproducible results. Interpretation: Forced expiration spirometry shows no large airways obstructive ventilatory defect with an FEV1 of 88% predicted. There is no significant bronchodilator response by strict ATS criteria. Spirograms are of good quality and plateau normally. The respiratory flow volume loop shows decreased expiratory flow rates at high lung volumes consistent with small airways obstruction. Lung volumes by body plethysmography show a normal total lung capacity at 3.5 L, 93% predicted. All other lung volumes are within normal limits. Diffusion capacity by carbon monoxide is at the lower limit of normal at 63% predicted. The airway resistance is elevated. No previous pulmonary function tests were available for review. Impression: These pulmonary function tests are grossly within normal limits, but do show signs of early COPD with small airways obstruction and diffusion capacity at the lower limit of normal.
== END | disposition home or self-care (01) ==
LOC: PSN 10:29
PROVIDERS: PCP Family Medicine; Referring Provider Nurse Practitioner Acute Care; Visit Provider Nurse Practitioner Acute Care
DX: R06.00 Dyspnea, unspecified (principal)
CPT/HCPCS: 94060; 94726; 94729

== ENCOUNTER 2022-05-26 11:00 | Outpatient (RCR) | payer MEDICARE, OTHER, SELFPAY ==
[2022-05-12 10:16] VITALS: BP 137/68; PULSE 91; RESP 16; TEMP 36.5; BMI 25.0
--- NOTE | 2022-05-12 10:51 | HP.PCM_ITS ---
History of Present Illness Date of Service: 05/12/22 Progress of Wound: This 71-year-old female seen for a chronic lateral malleolar ulceration. Patient has several venous insufficiency and history of daily smoking for the past 60 years. Patient denies any constitutional symptoms. Patient denies any drainage to site. Patient has been dressing site with Band-Aid daily. Patient denies any pain to site at the current and has no other complaints. Patient has been dealing with the site for several months at this point without any signs of healing. Patient also takes prednisone daily. 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 Atrial septal defect Cerebral vascular accident Change in bowel habit Constipation Diarrhea Fatigue Hemorrhoids Hyperlipidemia Other specified transient cerebral ischemias Palpitations Premature atrial beats Premature ventricular contractions Sinus tachycardia Supraventricular premature beats Syncope and collapse Home Medications albuterol sulfate 90 mcg/actuation aerosol inhaler 2 puff inhalation Q6H PRN PRN Sob &/Or Wheezing 07/29/17 [History Last Taken Unknown] prednisone 5 mg tablet 5 mg PO DAILY 11/28/18 [History Last Taken Unknown] azithromycin 250 mg tablet 250 mg PO DAILY 05/25/19 [History Last Taken Unknown] gabapentin 100 mg capsule 100 mg PO TID 05/25/19 [History Last Taken 11/29/20] acetaminophen 500 mg tablet 500 mg PO TID 02/14/20 [History Last Taken Unknown] aspirin 81 mg tablet,delayed release 81 mg PO DAILY 02/14/20 [History Last Taken Unknown] cholecalciferol (vitamin D3) 50 mcg (2,000 unit) capsule 4,000 unit PO DAILY 02/14/20 [History Last Taken Unknown] tramadol 50 mg tablet 25 mg PO Q8H 02/14/20 [History Last Taken 11/29/20] ixekizumab 80 mg/mL subcutaneous auto-injector (Taltz Autoinjector) 80 mg subcut Q4W 11/14/20 [History Last Taken Unknown] omeprazole 40 mg capsule,delayed release 40 mg PO DAILY 11/14/20 [History Last Taken 11/29/20] metoprolol succinate 25 mg tablet,extended release 24 hr 25 mg PO DAILY #90 tabs 06/13/21 [Rx Last Taken Unknown] cyclosporine 0.05 % eye drops in a dropperette 1 drp ophthalmic (eye) Q12H 03/23/22 [History Last Taken Unknown] vitamin B complex (B Complex-Vitamin B12) 1 tab PO DAILY 03/23/22 [History Last Taken Unknown] denosumab 60 mg/mL subcutaneous syringe (Prolia) mg subcut X1 05/12/22 [History Last Taken Unknown] estradiol 0.05 mg/24 hr semiweekly transdermal patch (Chandni) 0.05 mg topical 05/12/22 [History Last Taken Unknown] guaifenesin 600 mg tablet, extended release 12 hr (Mucinex) 600 - 1,200 mg PO BID 05/12/22 [History Last Taken Unknown] prednisone 5 mg tablet 5 mg PO DAILY 05/12/22 [History Last Taken Unknown] rosuvastatin 5 mg tablet 5 mg PO DAILY 05/12/22 [History Last Taken Unknown] spironolactone 25 mg tablet 25 mg PO DAILY 05/12/22 [History Last Taken Unknown] Allergy/AdvReac Type Severity Reaction Status Date / Time cetirizine [From Zyrtec] Allergy Shortness Verified 03/23/22 13:49 of breath soy Allergy Shortness Verified 03/23/22 13:49 of breath Sulfa (Sulfonamide Allergy Hives Verified 03/23/22 13:49 Antibiotics) aspirin AdvReac Severe Upset Verified 05/12/22 10:25 stomach tetanus and diphtheria AdvReac Severe Unknown Verified 05/12/22 10:25 toxoids alendronate sodium AdvReac Nausea Verified 03/23/22 13:49 [From Fosamax] ibuprofen AdvReac Upset Verified 03/23/22 13:49 Stomach methotrexate AdvReac elevated Verified 03/23/22 13:49 liver enzymes oxycodone [From Percocet] AdvReac unable to Verified 03/23/22 13:49 urinate raloxifene [From Evista] AdvReac Nausea Verified 03/23/22 13:49 risedronate sodium AdvReac Nausea Verified 03/23/22 13:49 [From Actonel] ppi Allergy Unknown Uncoded 03/23/22 13:49 tapes AdvReac fragile Uncoded 03/23/22 13:49 skin/skin tears Family History Father Cancer CVA (cerebral vascular accident) Brother Diabetes Brother Cancer Sister Cancer Other Family history of CVA Surgical History History of hernia surgery History of lung surgery History of rectal fissure Hx of cholecystectomy Hx of foot surgery Hx of hysterectomy Hx of shoulder surgery Social History Smoking Status: Current every day smoker alcohol intake: never substance use type: does not use caffeine: No what type of physical activity do you participate in: none seatbelt use: always do you feel safe at home: Yes ROS Constitutional Constitutional: Denies daytime sleepiness, increased appetite or weakness Eyes Eyes: Denies acute decrease in peripheral vision, blindness or change in vision ENT HEENT: Denies change in voice, facial pain or loss taste/smell Cardiovascular Cardiovascular: Denies abdominal pain, arrhythmia on telemetry or chest pain with activity Respiratory/Chest Respiratory/Chest: Denies change in phlegm color, chest congestion or dyspnea on exertion Gastrointestinal Gastrointestinal: Denies change in bowel habits, cramping or diarrhea Genitourinary Genitourinary: Denies burning urination, change in libido or dribbling Vital Signs Vital Signs Vital Signs: 05/12/22 10:16 Temperature 97.7 F L Temperature Source Temporal Pulse Rate 91 Respiratory Rate 16 Blood Pressure 137/68 H Blood Pressure Mean 91 Blood Pressure Source Monitor Blood Pressure Position Sitting Blood Pressure Location Left Arm Oxygen Delivery Method Room Air Weight Weight: 56.245 kg Body Mass Index (BMI) 25.0 Physical Exam Narrative Patient is alert oriented person place time. Vascular: Dorsalis pedis posterior tibial pulses palpable 2 out of 4 to bilateral lower extremity. Some atrophic skin changes noted with diminished digital hair growth. Varicosities noted bilaterally with +1 pitting edema noted to bilateral greater malleoli region. Neurologic: Light touch protective sensation intact bilateral feet negative Babinski. Dermatologic full-thickness ulceration noted to the lateral malleolus measuring 0.2 x 0.2 cm with mild periwound erythema no deep probing undermining or other signs of infection. Musculoskeletal: Muscular strength full to bilateral lower extremity compartments. No pain with calf squeeze or pop the patient popliteal fossa. No wound forming deformity is noted. Debridement Note Debridement Note Post-Debridement Measurements and Additional Note: Post-Debridement Measurements/Treatment WC - Nurse 1 - General Ulcer Assessment Start: 05/12/22 10:12 Freq: Status: Active Protocol: LITO Activity Type Activity Date Activity User E-sign Co-sign Detail Recorded Client Recorded Date Recorded By Document 05/12/22 10:16 [facility] [id number] 05/12/22 10:21 [facility] 05/12/22 10:16 - Today's Visit Information Type of service Follow-up Visit (Physician/CAR ESCORT ) Arrival Mode Ambulatory Transfer Assistance None Patient Identification Verified (Name & Yes ) Patient Requires Transmission-Based No Precautions Height and Weight Height 4 ft 11 in Weight 56.245 kg Weight in Pounds 124.0 lbs Body Mass Index (BMI) 25.0 BMI Classification Overweight BSA - Lena 1.50 Vital Signs Temperature (97.8 F-99.1 F) 97.7 F L Temperature Source Temporal Pulse Rate (60-100) 91 Pulse Location Monitor Respiratory Rate (12-18) 16 Respiratory rate source Observation Oxygen Delivery Method Room Air Blood Pressure (90/60-120/80) 137/68 H Blood Pressure Mean 91 Source Monitor Position Sitting Blood Pressure Location Left Arm History Since Last Visit- (Skip if this is Patient's initial visit) Left Footwear Regular Shoe Right Footwear Regular Shoe Pain Scale: 0-10 Numeric Is Patient Pain Free? Yes Lower Extremity Assessment/ Foot Assessment/ Toe Nail Assessment Right -Lower Extremity Comment (If N/A Above ARTERIAL ) STUDIES < 1 YR AGO Left -Lower Extremity Comment (If N/A Above ARTERIAL ) STUDIES < 1 YR AGO Communication Assessment Preferred language [place] Paid Search Analyst Required No Able to Read Yes Able to Write Yes Communication Tools None Right Hearing Abillity Normal Left Hearing Abillity Normal Visual Assistive Devices Glasses Teaching Assessment Preferences Verbal,Written, Audio/Visual, Demonstration Barriers to Learning None Readiness To Learn Excellent Willingness to Engage in Self Management High Activies Readiness to Engage in Self Management High Activities Anxiety Level Calm Cooperation Cooperative Perception Coherent Interest in Health Problem Asks Questions Education Importance Acknowledges Need Does Patient Smoke tobacco or other No substances Smoking Status Current every day smoker Is Patient Diabetic No Functional Assessment Recent Decline in Ability to Perform Denies Any Declines 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 Needs that may affect No Treatment Plan Teaching: Wound Center *Welcome to the Wound Center -Person Taught Patient -Teaching Method Discussion -Response to teaching Verbalize understanding Welcome to the Wound Care Center [place] - Nurse 1 - General Ulcer Measurement Start: 05/12/22 10:12 Freq: Status: Active Protocol: Activity Type Activity Date Activity User E-sign Co-sign Detail Recorded Client Recorded Date Recorded By Document 05/12/22 10:16 [facility] [id number] 05/12/22 10:21 [facility] 05/12/22 10:16 Wound Center Nurse 1 #1- L LATERAL ANKLE -Combined with other wound No -Current Size (cm) - Length 0.3 -Current Size (cm) - Width 0.3 -Current Size (cm) - Depth 0.1 -Total Square Cm 0.09 -Date of Last Picture (Recall this 05/12/22 field) -Photo Taken Yes -Epithelialization None Present -Tunneling No -Undermining/Tunneling No -Circular Undermining No -Exudate Amt None Present -Wound Margin Distinct, Outline Attached -Granulation Amt None Present (0 %) -Slough/Fibrin Yes -Necrosis Amt Large (67-100%) -Necrotic Tissue Type Adherent Slough -Texture (Zaida-wound Skin Appearance) Localized Edema -Moisture (Zaida-wound Skin Appearance) Assessed -Color (Zaida-wound Skin Appearance) Assessed, Erythema -Temperature (Zaida-wound Skin No Abnormality Appearance) (Pt Warm) -Tenderness on Palpation (Zaida-wound No Skin Appearance) -Ulcer Cleansing Rinsed/ Irrigated with Saline -Foul Odor after Cleansing No -Anesthetic Used 5% Lidocaine Gel - Nurse 2 - General Ulcer CM Notes Start: 05/12/22 10:12 Freq: Status: Active Protocol: Activity Type Activity Date Activity User E-sign Co-sign Detail Recorded Client Recorded Date Recorded By Document 05/12/22 10:48 [id number] 05/12/22 10:51 05/12/22 10:48 Wound Center Nurse 2 -Time 10:50 -Correct Patient Yes -Correct Side, Site, Position Yes -Correct Procedure Yes -Procedure Performed Yes -Type of Procedure Debridement -Clinical Debridement Subcutaneous -Tissue Removed Subcutaneous -Post Debridement (cm) - Length 0.3 -Post Debridement (cm) - Width 0.3 -Post Debridement (cm) - Depth 0.2 -Total Square (Post) (cm) 0.09 -Area of Debridement (cm) - Length 0.3 -Area of Debridement (cm) - Width 0.3 -Total Square (Area) (cm) 0.09 -Tunneling No -Undermining/Tunneling No -Circular Undermining No -Wound/Ulcer Outcome Not Healed -Ulcer Cleansing Rinsed/ Irrigated with Saline -Foul Odor after Cleansing No -Bioengineered Tissue No -Bleeding Controlled with Pressure -Treatment Response Procedure Tolerated Well -Offloading No -Debridement - Subq, 1st 20sq cm Yes Pain Scale: 0-10 Numeric Is Patient Pain Free? Yes Assessment/Plan Assessment/Plan (1) Venous insufficiency (chronic) (peripheral): CODE(S): I87.2 - Venous insufficiency (chronic) (peripheral) (2) Non-pressure chronic ulcer of left ankle with fat layer exposed: CODE(S): L97.322 - Non-pressure chronic ulcer of left ankle with fat layer exposed PLAN: Patient examined evaluated, findings cussed patient detail. Patient has small ulceration to lateral malleolus with atrophic periwound skin. Wound was excisionally debrided down to including level of subcutaneous tissue of all nonviable tissue using 5 mm dermal curette without incident. Pre and postdebridement measurements document nursing notes. Topical anesthesia used. Hemostasis obtained with light compression. Patient tolerated procedure well. This was performed to the left lateral malleolus. Wound was dressed with an Unna boot compression and edema management. Recommended smoking cessation with patient and discussed the risks. Patient has no intention of quitting at this time despite risks. Previous arterial studies and lab work reviewed. Will consider additional work-up if there are any delays in healing including arterial, venous studies or additional lab work. Patient will follow up in 1 week. I recommend exercise compression elevation for edema management.
[2022-05-15 13:33] VITALS: BP 141/65; PULSE 99; TEMP 35.7; BMI 25.0
[2022-05-22 13:16] VITALS: BP 136/74; PULSE 100; RESP 18; TEMP 36.2; BMI 25.0
--- NOTE | 2022-05-26 11:21 | PN.PCM_ITS ---
History of Present Illness Date of Service: 05/26/22 Progress of Wound: This 71-year-old female seen for a chronic lateral malleolar ulceration. Patient has several venous insufficiency and history of daily smoking for the past 60 years. Patient denies any constitutional symptoms. Patient denies any drainage to site. Patient has been dressing site with Band-Aid daily. Patient denies any pain to site at the current and has no other complaints. Patient has been dealing with the site for several months at this point without any signs of healing. Patient also takes prednisone daily. Objective Data Objective Data Vital Signs: Vital Signs Temp Pulse Resp BP O2 Del Method 97.1 F L 100 18 136/74 H Room Air 05/22/22 13:16 05/22/22 13:16 05/22/22 13:16 05/22/22 13:16 05/12/22 10:16 Oxygen Delivery Method Room Air Weight: 56.245 kg Body Mass Index (BMI) 25.0 Physical Exam Narrative Patient is alert oriented person place time. Vascular: Dorsalis pedis posterior tibial pulses palpable 2 out of 4 to bilateral lower extremity. Some atrophic skin changes noted with diminished digital hair growth. Varicosities noted bilaterally with +1 pitting edema noted to bilateral greater malleoli region. Neurologic: Light touch protective sensation intact bilateral feet negative Babinski. Dermatologic full-thickness ulceration noted to the lateral malleolus measuring 0.2 x 0.2 cm with mild periwound erythema no deep probing undermining or other signs of infection. Musculoskeletal: Muscular strength full to bilateral lower extremity compartments. No pain with calf squeeze or pop the patient popliteal fossa. No wound forming deformity is noted. Debridement Note Debridement Note Post-Debridement Measurements and Additional Note: Post-Debridement Measurements/Treatment - Nurse 1 - General Ulcer Assessment Start: 05/12/22 10:12 Freq: Status: Active Protocol: [email or web address] Activity Type Activity Date Activity User E-sign Co-sign Detail Recorded Client Recorded Date Recorded By Document 05/12/22 10:16 [facility] [id number] 05/12/22 10:21 BM Document 05/15/22 13:33 AK [id number] 05/15/22 13:35 AK Document 05/22/22 13:16 DL [id number] 05/22/22 13:21 DL 05/12/22 05/15/22 05/22/22 10:16 13:33 13:16 WC - Today's Visit Information Type of service Follow-up Visit Follow-up Visit Nurse-only (Physician/ATTENDING AMBULATORY CARE (Physician/ATTENDING AMBULATORY CARE Visit ) ) Arrival Mode Ambulatory Ambulatory Ambulatory Transfer Assistance None None Patient Identification Verified (Name & Yes Yes Yes ) Patient Requires Transmission-Based No No No Precautions Safety Precautions NA Height and Weight Height 4 ft 11 in Weight 56.245 kg Weight in Pounds 124.0 lbs Body Mass Index (BMI) 25.0 25.0 25.0 BMI Classification Overweight Overweight Overweight BSA - Lena 1.50 Vital Signs Temperature (97.8 F-99.1 F) 97.7 F L 96.2 F L 97.1 F L Temperature Source Temporal Oral Temporal Pulse Rate (60-100) 91 99 100 Pulse Location Monitor Monitor Monitor Respiratory Rate (12-18) 16 18 Respiratory rate source Observation Observation Oxygen Delivery Method Room Air Blood Pressure (90/60-120/80) 137/68 H 141/65 H 136/74 H Blood Pressure Mean (mm Hg) 91 90 94 Source Monitor Monitor Monitor Position Sitting Blood Pressure Location Left Arm History Since Last Visit- (Skip if this is Patient's initial visit) Have you changed medications since your No No last visit? Any new allergies or adverse reactions No No Had a fall/change in ADL's that may No No increase risk of falls Signs or symptoms of abuse and/or No No neglect since last visit Have you been in the hospital since your No No last visit? Has dressing in place as prescribed Yes Yes Has compression in place as prescribed Yes Yes Has offloadiing in place as prescribed N/A N/A Experienced any changes in pain level or No No management Left Footwear Regular Shoe Regular Shoe Right Footwear Regular Shoe Regular Shoe Pain Scale: 0-10 Numeric Is Patient Pain Free? 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 Able to Read Yes Able to Write Yes Communication Tools None Right Hearing Abillity Normal Left Hearing Abillity Normal Visual Assistive Devices Glasses Teaching Assessment Preferences Verbal,Written, Audio/Visual, Demonstration Barriers to Learning None Readiness To Learn Excellent Willingness to Engage in Self Management High Activies Readiness to Engage in Self Management High Activities Anxiety Level Calm Cooperation Cooperative Perception Coherent Interest in Health Problem Asks Questions Education Importance Acknowledges Need Does Patient Smoke tobacco or other No substances Smoking Status Current every day smoker Is Patient Diabetic No Functional Assessment Recent Decline in Ability to Perform Denies Any Declines 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 Cultural/Voodoo Needs that may affect No Treatment Plan Teaching: Wound Center *Welcome to the Wound Center -Person Taught Patient -Teaching Method Discussion -Response to teaching Verbalize understanding Welcome to the Wound Care Center Romanian WC - Nurse 1 - General Ulcer Measurement Start: 05/12/22 10:12 Freq: Status: Active Protocol: Activity Type Activity Date Activity User E-sign Co-sign Detail Recorded Client Recorded Date Recorded By Document 05/12/22 10:16 [facility] [id number] 05/12/22 10:21 BM Document 05/22/22 13:16 DL [id number] 05/22/22 13:21 DL 05/12/22 05/22/22 10:16 13:16 Wound Center Nurse 1 #1- L LATERAL ANKLE -Combined with other wound No -Current Size (cm) - Length 0.3 -Current Size (cm) - Width 0.3 -Current Size (cm) - Depth 0.1 -Total Square Cm 0.09 -Date of Last Picture (Recall this 05/12/22 field) -Photo Taken Yes -Epithelialization None Present -Tunneling No -Undermining/Tunneling No -Circular Undermining No -Exudate Amt None Present None Present -Wound Margin Distinct, Distinct, Outline Outline Attached Attached -Granulation Amt None Present (0 %) -Slough/Fibrin Yes -Necrosis Amt Large (67-100%) -Necrotic Tissue Type Adherent Slough -Structure Exposed N/A -Texture (Zaida-wound Skin Appearance) Localized Edema Scarring -Moisture (Zaida-wound Skin Appearance) Assessed No Abnormality -Color (Zaida-wound Skin Appearance) Assessed, Erythema Erythema -Temperature (Zaida-wound Skin No Abnormality No Abnormality Appearance) (Pt Warm) (Pt Warm) -Tenderness on Palpation (Zaida-wound No No Skin Appearance) -Ulcer Cleansing Rinsed/ Soap and Water Irrigated with Saline -Foul Odor after Cleansing No No -Anesthetic Used 5% Lidocaine Gel Left Calf (cm) 30 Left Ankle (cm) 17 - Nurse 2 - General Ulcer CM Notes Start: 05/12/22 10:12 Freq: Status: Active Protocol: Activity Type Activity Date Activity User E-sign Co-sign Detail Recorded Client Recorded Date Recorded By Document 05/12/22 10:48 JF [id number] 05/12/22 10:51 JF Document 05/26/22 11:18 [id number] 05/26/22 11:20 JF 05/12/22 05/26/22 10:48 11:18 Wound Center Nurse 2 #1- L LATERAL ANKLE -Time 10:50 11:18 -Correct Patient Yes Yes -Correct Side, Site, Position Yes Yes -Correct Procedure Yes Yes -Procedure Performed Yes Yes -Type of Procedure Debridement Debridement -Clinical Debridement Subcutaneous Subcutaneous -Tissue Removed Subcutaneous Subcutaneous -Post Debridement (cm) - Length 0.3 0.3 -Post Debridement (cm) - Width 0.3 0.2 -Post Debridement (cm) - Depth 0.2 0.1 -Total Square (Post) (cm) 0.09 0.06 -Area of Debridement (cm) - Length 0.3 0.3 -Area of Debridement (cm) - Width 0.3 0.2 -Total Square (Area) (cm) 0.09 0.06 -Tunneling No No -Undermining/Tunneling No No -Circular Undermining No No -Wound/Ulcer Outcome Not Healed Not Healed -Ulcer Cleansing Rinsed/ Rinsed/ Irrigated with Irrigated with Saline Saline -Foul Odor after Cleansing No No -Bioengineered Tissue No No -Bleeding Controlled with Pressure Pressure -Treatment Response Procedure Procedure Tolerated Well Tolerated Well -Offloading No No -Debridement - Subq, 1st 20sq cm Yes Yes Pain Scale: 0-10 Numeric Is Patient Pain Free? Yes Yes - Nurse 3 - General Ulcer D/C NN Start: 05/12/22 10:12 Freq: Status: Active Protocol: Activity Type Activity Date Activity User E-sign Co-sign Detail Recorded Client Recorded Date Recorded By Document 05/12/22 10:59 AK [id number] 05/12/22 11:01 AK Edit Result 05/12/22 10:59 AK (1) [id number] 05/13/22 07:41 PL Document 05/15/22 13:33 AK [id number] 05/15/22 13:35 AK Document 05/22/22 13:16 DL [id number] 05/22/22 13:21 DL (1) Left - Multi-Layered Wrap Application => Unna Boot - Left ( => $) 05/12/22 05/15/22 05/22/22 10:59 13:33 13:16 Wound Care Nurse 3 #1- L LATERAL ANKLE -Ulcer Cleansing Rinsed/ Soap and Water Soap and Water Irrigated with Saline -Foul Odor after Cleansing No No No -Negative Pressure Wound Therapy N/A N/A Left -Lotion applied to leg before No No compression wrap -Multi-Layered Wrap Application Unna Boot - Unna Boot - Unna Boot - Left ($) Left ($) Left ($) -Compression Wrap Unna Boot ($) ( Unna Boot ($) ( single) single) Treatment Response Procedure Tolerated Well Vital Signs Temperature (97.8 F-99.1 F) 96.2 F L 97.1 F L Temperature Source Oral Temporal Pulse Rate (60-100) 99 100 Pulse Location Monitor Monitor Respiratory Rate (12-18) 18 Respiratory rate source Observation Blood Pressure (90/60-120/80) 141/65 H 136/74 H Blood Pressure Mean (mm Hg) 90 94 Source Monitor Monitor Pain Scale: 0-10 Numeric Is Patient Pain Free? Yes Yes Yes WC - Visit Discharge Discharge Condition Stable Stable Ambulatory Status Ambulatory Ambulatory Transportation Private Auto Private Auto Medication Reconcilliation completed & Yes provided to patient/care provider Clinical Summary of Care Provided Yes Notes: Dressing/Unna Boot applied per Janice Nye LPN today in clinic . Assessment/Plan Assessment/Plan (1) Venous insufficiency (chronic) (peripheral): CODE(S): I87.2 - Venous insufficiency (chronic) (peripheral) (2) Non-pressure chronic ulcer of left ankle with fat layer exposed: CODE(S): L97.322 - Non-pressure chronic ulcer of left ankle with fat layer exposed PLAN: Patient examined evaluated, findings cussed patient detail. Patient has small ulceration to lateral malleolus with atrophic periwound skin. Wound was excisionally debrided down to including level of subcutaneous tissue of all nonviable tissue using 5 mm dermal curette without incident. Pre and postdebridement measurements document nursing notes. Topical anesthesia used. Hemostasis obtained with light compression. Patient tolerated procedure well. This was performed to the left lateral malleolus. Hydrogel and double Tubigrip daily to wound. Follow-up in 2 weeks. Arterial studies ordered. Smoking cessation counseling performed. Patient smoked for 60 years for COPD takes daily azithromycin. Patient refuses to discontinue. Patient will follow up in 1 week. I recommend exercise compression elevation for edema management.
[2022-05-26 11:34] VITALS: BP 129/63; PULSE 68; TEMP 35.9; BMI 25.0
== END 2022-05-31 23:59 | disposition home or self-care (01) ==
LOC: WC 11:00
PROVIDERS: PCP Family Medicine; Visit Provider Podiatrist
DX: L97.322 Non-pressure chronic ulcer of left ankle with fat layer exposed (principal); Z79.810 Long term (current) use of selective estrogen receptor modulators (SERMs); I87.2 Venous insufficiency (chronic) (peripheral); F17.200 Nicotine dependence, unspecified, uncomplicated; E78.5 Hyperlipidemia, unspecified; Z79.83 Long term (current) use of bisphosphonates; R60.0 Localized edema
CPT/HCPCS: 11042; 29580; 99213; G0463

== ENCOUNTER 2022-06-23 11:16 | Outpatient (CLI) | payer MEDICARE, OTHER, SELFPAY ==
[2022-06-23 12:15] LABS: Absolute Lymphocyte Count 0.89 X10^3/uL (0.83-4.51); Absolute Neutrophil Count 9.5 X10^3/uL (2.0-7.7); Basophil# 0.05 X10^3/uL; Basophil% 0.4 % (0-1); Eosinophil# 0.03 X10^3/uL; Eosinophils% 0.3 % (0-5); Hematocrit 40.5 % (37-47); Hemoglobin 12.7 g/dL (12.0-15.0); Lymphocyte # 0.89 X10^3/ul (0.83-4.51); Lymphocyte % 7.9 % (19-41); Mean Corp Hgb Conc 31.4 g/dL (32-36); Mean Corpuscular Volume 92.5 fL (81-99); Monocyte# 0.71 X10^3/uL; Monocyte% 6.3 % (0-10); NRBC Flagged by Analyzer 0 % (0-5); Neutrophil # 9.51 X10^3/uL (2.7-7.7); Neutrophil % 84.3 % (47-70); Platelet Count 385 K/mm3 (150-450); RBC Distribution Width CV 13.8 % (11.6-14.6); RBC Distribution Width SD 47.3 fl (35.1-43.9); Red Blood Count 4.38 M/mm3 (4.2-5.4); White Blood Count 11.3 K/mm3 (4.4-11.0)
[2022-06-23 13:05] LABS: Vitamin B12 1454 pg/mL (211-911); Vitamin D,25 Hydroxy 36.8 ng/mL
[2022-06-23 13:15] LABS: ALB/GLOB Ratio 1.1 RATIO (0.9-2.4); AST(SGOT) 20 U/L (15-37); Alanine Aminotransfer ALT/SGPT 20 U/L (13-56); Albumin, Serum 3.6 g/dL (3.2-5.0); Alkaline Phosphatase 82 U/L (45-117); Anion Gap 6 (5-15); BUN 17 mg/dL (7-18); BUN/Creat Ratio 21.9 RATIO (10-20); Chloride 106 mmol/L (98-107); Cholesterol 147 mg/dL (200); Creatinine, Serum 0.78 mg/dL (0.55-1.02); EST Glomerular Filtration Rate 77 mL/min (>60); Est Glom Filt Rate - Afr Amer 94 mL/min (>60); Globulin 3.3 g/dL (2.2-4.2); Glucose 93 mg/dL (74-106); High Density Lipoprotein 69 mg/dL; Potassium 3.9 mmol/L (3.5-5.1); Protein, Total 6.9 g/dL (6.4-8.2); Sodium Level 139 mmol/L (136-145); Triglycerides 112 mg/dL; Very Low Density Lipoprotein 22 mg/dL (5-40)
[2022-06-23 14:54] LABS: Hemoglobin A1c 5.8 % (3.8-5.6)
== END 2022-06-23 23:59 | disposition home or self-care (01) ==
LOC: MFPLAB 11:17
PROVIDERS: PCP Family Medicine; Visit Provider Family Medicine
DX: L97.322 Non-pressure chronic ulcer of left ankle with fat layer exposed (principal); E78.5 Hyperlipidemia, unspecified; E55.9 Vitamin D deficiency, unspecified; E53.8 Deficiency of other specified B group vitamins; R73.02 Impaired glucose tolerance (oral); I87.2 Venous insufficiency (chronic) (peripheral)
CPT/HCPCS: 11042; 29580; 36415; 80053; 80061; 82306; 82607; 82746; 83036; 85025

== ENCOUNTER 2022-07-01 13:15 | Outpatient (RCR) | payer MEDICARE, OTHER, SELFPAY ==
[2022-06-01 00:38] VITALS: BP 129/63; PULSE 68; RESP 18; TEMP 35.9; BMI 25.0
[2022-06-09 11:06] VITALS: BP 136/68; PULSE 87; RESP 16; TEMP 36.1; BMI 25.0
--- NOTE | 2022-06-09 12:06 | PCM.WC.PN ---
History of Present Illness Date of Service: 06/09/22 Progress of Wound: This 71-year-old female seen for a chronic lateral malleolar ulceration. Patient has several venous insufficiency and history of daily smoking for the past 60 years. Patient denies any constitutional symptoms. Patient denies any drainage to site. Patient has been dressing site with Band-Aid daily. Patient denies any pain to site at the current and has no other complaints. Patient has been dealing with the site for several months at this point without any signs of healing. Patient also takes prednisone daily. Objective Data Objective Data Vital Signs: Vital Signs Temp Pulse Resp BP O2 Del Method 97.0 F L 87 16 136/68 H Room Air 06/09/22 11:06 06/09/22 11:06 06/09/22 11:06 06/09/22 11:06 06/09/22 11:06 Oxygen Delivery Method Room Air Weight: 56.245 kg Body Mass Index (BMI) 25.0 Physical Exam Narrative Patient is alert oriented person place time. Vascular: Dorsalis pedis posterior tibial pulses palpable 2 out of 4 to bilateral lower extremity. Some atrophic skin changes noted with diminished digital hair growth. Varicosities noted bilaterally with +1 pitting edema noted to bilateral greater malleoli region. Neurologic: Light touch protective sensation intact bilateral feet negative Babinski. Dermatologic full-thickness ulceration noted to the lateral malleolus measuring 0.2 x 0.2 cm with mild periwound erythema no deep probing undermining or other signs of infection. Musculoskeletal: Muscular strength full to bilateral lower extremity compartments. No pain with calf squeeze or pop the patient popliteal fossa. No wound forming deformity is noted. Debridement Note Debridement Note Post-Debridement Measurements and Additional Note: Post-Debridement Measurements/Treatment - Nurse 1 - General Ulcer Assessment Start: 06/09/22 11:05 Freq: Status: Active Protocol: .LOWEXT Activity Type Activity Date Activity User E-sign Co-sign Detail Recorded Client Recorded Date Recorded By Document 06/09/22 11:06 [facility] [id number] 06/09/22 11:12 [facility] 06/09/22 11:06 - Today's Visit Information Type of service Follow-up Visit (Physician/GAUGER CHIEF ) Arrival Mode Ambulatory Transfer Assistance None Patient Identification Verified (Name & Yes ) Patient Requires Transmission-Based No Precautions Height and Weight Weight Measurement Method Estimated by Patient Body Mass Index (BMI) 25.0 BMI Classification Overweight Vital Signs Temperature (97.8 F-99.1 F) 97.0 F L Temperature Source Temporal Pulse Rate (60-100) 87 Pulse Location Monitor Respiratory Rate (12-18) 16 Respiratory rate source Observation Oxygen Delivery Method Room Air Blood Pressure (90/60-120/80) 136/68 H Blood Pressure Mean (mm Hg) 90 Source Monitor Position Sitting Blood Pressure Location Right Arm History Since Last Visit- (Skip if this is Patient's initial visit) Have you changed medications since your No last visit? Any new allergies or adverse reactions No Had a fall/change in ADL's that may No increase risk of falls Signs or symptoms of abuse and/or No neglect since last visit Have you been in the hospital since your No last visit? Has dressing in place as prescribed Yes Has compression in place as prescribed Yes Has offloadiing in place as prescribed N/A Experienced any changes in pain level or No management Left Footwear Regular Shoe Right Footwear Regular Shoe Pain Scale: 0-10 Numeric Is Patient Pain Free? Yes WC - Nurse 1 - General Ulcer Measurement Start: 06/09/22 11:05 Freq: Status: Active Protocol: Activity Type Activity Date Activity User E-sign Co-sign Detail Recorded Client Recorded Date Recorded By Document 06/09/22 11:06 [facility] [id number] 06/09/22 11:12 [facility] 06/09/22 11:06 Wound Center Nurse 1 #1- L LATERAL ANKLE -Combined with other wound No -Current Size (cm) - Length 0.1 -Current Size (cm) - Width 0.1 -Current Size (cm) - Depth 0.1 -Total Square Cm 0.01 -Photo Taken No -Epithelialization Large 67-100% -Tunneling No -Undermining/Tunneling No -Circular Undermining No -Exudate Amt None Present -Wound Margin Distinct, Outline Attached -Granulation Amt None Present (0 %) -Slough/Fibrin Yes -Necrosis Amt Small (1-33%) -Necrotic Tissue Type Adherent Slough -Texture (Zaida-wound Skin Appearance) Assessed, Scarring -Moisture (Zaida-wound Skin Appearance) Assessed,Dry/ Scaly -Color (Zaida-wound Skin Appearance) Assessed, Erythema -Temperature (Zaida-wound Skin No Abnormality Appearance) (Pt Warm) -Tenderness on Palpation (Zaida-wound No Skin Appearance) -Ulcer Cleansing Rinsed/ Irrigated with Saline -Foul Odor after Cleansing No -Anesthetic Used 5% Lidocaine Gel Left Calf (cm) 30.7 Left Ankle (cm) 16.8 - Nurse 2 - General Ulcer CM Notes Start: 06/09/22 11:05 Freq: Status: Active Protocol: Activity Type Activity Date Activity User E-sign Co-sign Detail Recorded Client Recorded Date Recorded By Document 06/09/22 11:34 [id number] 06/09/22 11:35 06/09/22 11:34 Wound Center Nurse 2 #1- L LATERAL ANKLE -Time 11:35 -Correct Patient Yes -Correct Side, Site, Position Yes -Correct Procedure Yes -Procedure Performed Yes -Type of Procedure Debridement -Clinical Debridement Subcutaneous -Tissue Removed Subcutaneous -Post Debridement (cm) - Length 0.2 -Post Debridement (cm) - Width 0.1 -Post Debridement (cm) - Depth 0.1 -Total Square (Post) (cm) 0.02 -Area of Debridement (cm) - Length 0.2 -Area of Debridement (cm) - Width 0.1 -Total Square (Area) (cm) 0.02 -Tunneling No -Undermining/Tunneling No -Circular Undermining No -Wound/Ulcer Outcome Not Healed -Ulcer Cleansing Rinsed/ Irrigated with Saline -Foul Odor after Cleansing No -Bioengineered Tissue No -Bleeding Controlled with Pressure -Treatment Response Procedure Tolerated Well -Offloading No -Debridement - Subq, 1st 20sq cm Yes Pain Scale: 0-10 Numeric Is Patient Pain Free? Yes - Nurse 3 - General Ulcer D/C NN Start: 06/09/22 11:05 Freq: Status: Active Protocol: Activity Type Activity Date Activity User E-sign Co-sign Detail Recorded Client Recorded Date Recorded By Document 06/09/22 11:43 [facility] [id number] 06/09/22 11:44 [facility] 06/09/22 11:43 Wound Care Nurse 3 #1- L LATERAL ANKLE -Ulcer Cleansing Rinsed/ Irrigated with Saline -Foul Odor after Cleansing No -Primary Dressing Applied Other -Other Dressing HYDROGEL -Primary Dressing Covered/Secured with Dry Gauze, Secured with Tape Treatment Response Procedure Tolerated Well Pain Scale: 0-10 Numeric Is Patient Pain Free? Yes WC - Visit Discharge Discharge Condition Stable Ambulatory Status Ambulatory Transportation Private Auto Assessment/Plan Assessment/Plan (1) Venous insufficiency (chronic) (peripheral): CODE(S): I87.2 - Venous insufficiency (chronic) (peripheral) (2) Non-pressure chronic ulcer of left ankle with fat layer exposed: CODE(S): L97.322 - Non-pressure chronic ulcer of left ankle with fat layer exposed PLAN: Patient examined evaluated, findings cussed patient detail. Patient has small ulceration to lateral malleolus with atrophic periwound skin. Wound was excisionally debrided down to including level of subcutaneous tissue of all nonviable tissue using 5 mm dermal curette without incident. Pre and postdebridement measurements document nursing notes. Topical anesthesia used. Hemostasis obtained with light compression. Patient tolerated procedure well. This was performed to the left lateral malleolus. Hydrogel and double Tubigrip daily to wound. Follow-up in 2 weeks. Arterial studies ordered. Smoking cessation counseling performed. Patient smoked for 60 years for COPD takes daily azithromycin. Patient refuses to discontinue. Patient will follow up in 1 week. I recommend exercise compression elevation for edema management.
[2022-06-23 09:18] VITALS: BP 122/66; PULSE 81; TEMP 36.1; BMI 25.0
--- NOTE | 2022-06-23 10:50 | PN.PCM_ITS ---
History of Present Illness Date of Service: 06/23/22 Progress of Wound: This 71-year-old female seen for a chronic lateral malleolar ulceration. Patient has several venous insufficiency and history of daily smoking for the past 60 years. Patient denies any constitutional symptoms. Patient denies any drainage to site. Patient has been dressing site with Band-Aid daily. Patient denies any pain to site at the current and has no other complaints. Patient has been dealing with the site for several months at this point without any signs of healing. Patient also takes prednisone daily. Objective Data Objective Data Vital Signs: Vital Signs Temp Pulse Resp BP O2 Del Method 96.9 F L 81 16 122/66 H Room Air 06/23/22 09:18 06/23/22 09:18 06/09/22 11:06 06/23/22 09:18 06/09/22 11:06 Oxygen Delivery Method Room Air Weight: 56.245 kg Body Mass Index (BMI) 25.0 Physical Exam Narrative Patient is alert oriented person place time. Vascular: Dorsalis pedis posterior tibial pulses palpable 2 out of 4 to bilateral lower extremity. Some atrophic skin changes noted with diminished digital hair growth. Varicosities noted bilaterally with +1 pitting edema noted to bilateral greater malleoli region. Neurologic: Light touch protective sensation intact bilateral feet negative Babinski. Dermatologic full-thickness ulceration noted to the lateral malleolus measuring 0.2 x 0.2 cm with mild periwound erythema no deep probing undermining or other signs of infection. Musculoskeletal: Muscular strength full to bilateral lower extremity compartments. No pain with calf squeeze or pop the patient popliteal fossa. No wound forming deformity is noted. Debridement Note Debridement Note Post-Debridement Measurements and Additional Note: Post-Debridement Measurements/Treatment - Nurse 1 - General Ulcer Assessment Start: 06/09/22 11:05 Freq: Status: Active Protocol: LITO Activity Type Activity Date Activity User E-sign Co-sign Detail Recorded Client Recorded Date Recorded By Document 06/09/22 11:06 [facility] [id number] 06/09/22 11:12 [facility] Document 06/23/22 09:18 [place] [id number] 06/23/22 09:26 [place] 06/09/22 06/23/22 11:06 09:18 - Today's Visit Information Type of service Follow-up Visit Follow-up Visit (Physician/WELDER 2ND SHIFT (Physician/WELDER 2ND SHIFT ) ) Arrival Mode Ambulatory Ambulatory Transfer Assistance None Patient Identification Verified (Name & Yes Yes ) Patient Requires Transmission-Based No No Precautions Safety Precautions NA Height and Weight Weight Measurement Method Estimated by Patient Body Mass Index (BMI) 25.0 25.0 BMI Classification Overweight Overweight Vital Signs Temperature (97.8 F-99.1 F) 97.0 F L 96.9 F L Temperature Source Temporal Temporal Pulse Rate (60-100) 87 81 Pulse Location Monitor Monitor Respiratory Rate (12-18) 16 Respiratory rate source Observation Oxygen Delivery Method Room Air Blood Pressure (90/60-120/80) 136/68 H 122/66 H Blood Pressure Mean (mm Hg) 90 84 Source Monitor Monitor Position Sitting Blood Pressure Location Right Arm History Since Last Visit- (Skip if this is Patient's initial visit) Have you changed medications since your No No last visit? Any new allergies or adverse reactions No No Had a fall/change in ADL's that may No No increase risk of falls Signs or symptoms of abuse and/or No No neglect since last visit Have you been in the hospital since your No No last visit? Has dressing in place as prescribed Yes Yes Has compression in place as prescribed Yes Yes Has offloadiing in place as prescribed N/A N/A Experienced any changes in pain level or No No management Left Footwear Regular Shoe Regular Shoe Right Footwear Regular Shoe Regular Shoe Pain Scale: 0-10 Numeric Is Patient Pain Free? Yes Yes WC - Nurse 1 - General Ulcer Measurement Start: 06/09/22 11:05 Freq: Status: Active Protocol: Activity Type Activity Date Activity User E-sign Co-sign Detail Recorded Client Recorded Date Recorded By Document 06/09/22 11:06 [facility] [id number] 06/09/22 11:12 [facility] Document 06/23/22 09:18 [place] [id number] 06/23/22 09:26 [place] 06/09/22 06/23/22 11:06 09:18 Wound Center Nurse 1 #1- L LATERAL ANKLE -Combined with other wound No No -Current Size (cm) - Length 0.1 0.2 -Current Size (cm) - Width 0.1 0.2 -Current Size (cm) - Depth 0.1 0.1 -Total Square Cm 0.01 0.04 -Photo Taken No Yes -Epithelialization Large 67-100% -Tunneling No No -Undermining/Tunneling No No -Circular Undermining No No -Change in Wound Grade/Stage No -Exudate Amt None Present None Present -Wound Margin Distinct, Distinct, Outline Outline Attached Attached -Granulation Amt None Present (0 None Present (0 %) %) -Granulation Quality N/A -Slough/Fibrin Yes Yes -Necrosis Amt Small (1-33%) Large (67-100%) -Necrotic Tissue Type Adherent Slough Adherent Slough -Structure Exposed N/A -Texture (Zaida-wound Skin Appearance) Assessed, No Abnormality, Scarring Assessed -Moisture (Zaida-wound Skin Appearance) Assessed,Dry/ No Abnormality, Scaly Assessed -Color (Zaida-wound Skin Appearance) Assessed, Assessed, Erythema Erythema -Temperature (Zaida-wound Skin No Abnormality No Abnormality Appearance) (Pt Warm) (Pt Warm) -Tenderness on Palpation (Zaida-wound No No Skin Appearance) -Ulcer Cleansing Rinsed/ Rinsed/ Irrigated with Irrigated with Saline Saline -Foul Odor after Cleansing No No -Anesthetic Used 5% Lidocaine 5% Lidocaine Gel Gel Right Calf (cm) 30 Right Ankle (cm) 18 Left Calf (cm) 30.7 Left Ankle (cm) 16.8 WC - Nurse 2 - General Ulcer CM Notes Start: 06/09/22 11:05 Freq: Status: Active Protocol: Activity Type Activity Date Activity User E-sign Co-sign Detail Recorded Client Recorded Date Recorded By Document 06/09/22 11:34 [id number] 06/09/22 11:35 Document 06/23/22 09:41 [id number] 06/23/22 09:44 06/09/22 06/23/22 11:34 09:41 Wound Center Nurse 2 #1- L LATERAL ANKLE -Time 11:35 09:41 -Correct Patient Yes Yes -Correct Side, Site, Position Yes Yes -Correct Procedure Yes Yes -Procedure Performed Yes Yes -Type of Procedure Debridement Debridement -Clinical Debridement Subcutaneous Subcutaneous -Tissue Removed Subcutaneous Subcutaneous -Post Debridement (cm) - Length 0.2 0.2 -Post Debridement (cm) - Width 0.1 0.2 -Post Debridement (cm) - Depth 0.1 0.1 -Total Square (Post) (cm) 0.02 0.04 -Area of Debridement (cm) - Length 0.2 0.2 -Area of Debridement (cm) - Width 0.1 0.2 -Total Square (Area) (cm) 0.02 0.04 -Tunneling No No -Undermining/Tunneling No No -Circular Undermining No No -Wound/Ulcer Outcome Not Healed Not Healed -Ulcer Cleansing Rinsed/ Rinsed/ Irrigated with Irrigated with Saline Saline -Foul Odor after Cleansing No No -Bioengineered Tissue No No -Bleeding Controlled with Pressure Pressure -Treatment Response Procedure Procedure Tolerated Well Tolerated Well -Offloading No No -Debridement - Subq, 1st 20sq cm Yes Yes Pain Scale: 0-10 Numeric Is Patient Pain Free? Yes Yes - Nurse 3 - General Ulcer D/C NN Start: 06/09/22 11:05 Freq: Status: Active Protocol: Activity Type Activity Date Activity User E-sign Co-sign Detail Recorded Client Recorded Date Recorded By Document 06/09/22 11:43 [facility] [id number] 06/09/22 11:44 [facility] Document 06/23/22 10:35 [place] [id number] 06/23/22 10:35 [place] 06/09/22 06/23/22 11:43 10:35 Wound Care Nurse 3 #1- L LATERAL ANKLE -Ulcer Cleansing Rinsed/ Irrigated with Saline -Foul Odor after Cleansing No No -Negative Pressure Wound Therapy N/A -Primary Dressing Applied Other -Other Dressing HYDROGEL -Primary Dressing Covered/Secured with Dry Gauze, Secured with Tape Left -Multi-Layered Wrap Application Unna Boot - Left ($) Treatment Response Procedure Tolerated Well Pain Scale: 0-10 Numeric Is Patient Pain Free? Yes Yes - Visit Discharge Discharge Condition Stable Stable Ambulatory Status Ambulatory Ambulatory Transportation Private Auto Private Auto Medication Reconcilliation completed & Yes provided to patient/care provider Clinical Summary of Care Provided Yes Assessment/Plan Assessment/Plan (1) Venous insufficiency (chronic) (peripheral): CODE(S): I87.2 - Venous insufficiency (chronic) (peripheral) (2) Non-pressure chronic ulcer of left ankle with fat layer exposed: CODE(S): L97.322 - Non-pressure chronic ulcer of left ankle with fat layer exposed PLAN: Patient examined evaluated, findings cussed patient detail. Patient has small ulceration to lateral malleolus with atrophic periwound skin. Wound was excisionally debrided down to including level of subcutaneous tissue of all nonviable tissue using 5 mm dermal curette without incident. Pre and postdebridement measurements document nursing notes. Topical anesthesia used. Hemostasis obtained with light compression. Patient tolerated procedure well. This was performed to the left lateral malleolus. Unna boot applied to left lower extremity. Follow-up in 2 weeks. Arterial studies ordered -awaiting performance of study. Smoking cessation counseling performed. Patient smoked for 60 years for COPD takes daily azithromycin. Patient refuses to discontinue. Patient will follow up in 1 week. I recommend exercise compression elevation for edema management.
[2022-07-01 13:17] VITALS: BP 134/76; PULSE 97; TEMP 36.1; BMI 25.0
--- NOTE | 2022-07-01 13:40 | PN.PCM_ITS ---
History of Present Illness Date of Service: 07/01/22 Chief Complaint: Left lateral malleolar ulcer History of Wound: This 71-year-old female seen for a chronic lateral malleolar ulceration. Patient has several venous insufficiency and history of daily smoking for the past 60 years. Patient denies any constitutional symptoms. Patient denies any drainage to site. Patient has been dressing site with Band- Aid daily. Patient denies any pain to site at the current and has no other complaints. Patient has been dealing with the site for several months at this point without any signs of healing. Patient also takes prednisone daily. Progress of Wound: Courtesy visit for Dr. Hernández. Left lateral malleolar ulcer is small, pink and tender to palpation. No edema present. Patient states that her PCP just informed her she is pre diabetic. Objective Data Objective Data Vital Signs: Vital Signs Temp Pulse Resp BP O2 Del Method 97.0 F L 97 16 134/76 H Room Air 07/01/22 13:17 07/01/22 13:17 06/09/22 11:06 07/01/22 13:17 06/09/22 11:06 Oxygen Delivery Method Room Air Weight: 124 lb Body Mass Index (BMI) 25.0 Charges/Coding Procedures Integumentary 111xxx-113xx: 45601 Jeanne subq tissue 20 sq cm/< Physical Exam Const alert, oriented x3 and no apparent distress HEENT normocephalic Resp normal respiratory effort Cardio regular rate Extremity normal capillary refill General Extremity: Negative for edema Skin Wound Narrative: Left lateral malleolus ulcer is small but very tender to palpation. Neuro CN's II-XII intact bilaterally Psych affect normal Debridement Note Debridement Note Wound debrided: lateral malleolus ulcer Laterality: Left Type of Debridement: Excisional debridement Anesthesia Used: 5% Lidocaine Gel Depth: Down to and including healthy tissue and in the subcutaneous layer Percentage of wound debrided: 100 Instrument Used: - (1mm curette) Tissue Removed: Devitalized tissue and slough Severity: Limited To Skin Breakdown Amount of bleeding with debridement: Mild Bleeding Controlled with: Compression and gauze Patient tolerated procedure: Patient tolerated procedure well Post-Debridement Measurements and Additional Note: Post-Debridement Measurements/Treatment HERLINDA - Nurse 1 - General Ulcer Assessment Start: 06/09/22 11:05 Freq: Status: Active Protocol: LITO Activity Type Activity Date Activity User E-sign Co-sign Detail Recorded Client Recorded Date Recorded By Document 06/09/22 11:06 BM [id number] 06/09/22 11:12 BMF Document 06/23/22 09:18 AK [id number] 06/23/22 09:26 AK Document 07/01/22 13:17 KR [id number] 07/01/22 13:19 KR 06/09/22 06/23/22 07/01/22 11:06 09:18 13:17 WC - Today's Visit Information Type of service Follow-up Visit Follow-up Visit Follow-up Visit (Physician/INSPECTOR PAWNSHOP DETAIL (Physician/INSPECTOR PAWNSHOP DETAIL (Physician/INSPECTOR PAWNSHOP DETAIL ) ) ) Arrival Mode Ambulatory Ambulatory Ambulatory Transfer Assistance None Patient Identification Verified (Name & Yes Yes Yes ) Patient Requires Transmission-Based No No Precautions Safety Precautions NA Height and Weight Weight Measurement Method Estimated by Patient Body Mass Index (BMI) 25.0 25.0 25.0 BMI Classification Overweight Overweight Overweight Vital Signs Temperature (97.8 F-99.1 F) 97.0 F L 96.9 F L 97.0 F L Temperature Source Temporal Temporal Temporal Pulse Rate (60-100) 87 81 97 Pulse Location Monitor Monitor Monitor Respiratory Rate (12-18) 16 Respiratory rate source Observation Oxygen Delivery Method Room Air Blood Pressure (90/60-120/80) 136/68 H 122/66 H 134/76 H Blood Pressure Mean (mm Hg) 90 84 95 Source Monitor Monitor Monitor Position Sitting Semi-Fowlers Blood Pressure Location Right Arm Left Arm History Since Last Visit- (Skip if this is Patient's initial visit) Have you changed medications since your No No No last visit? Any new allergies or adverse reactions No No No Had a fall/change in ADL's that may No No No increase risk of falls Signs or symptoms of abuse and/or No No No neglect since last visit Have you been in the hospital since your No No No last visit? Has dressing in place as prescribed Yes Yes Yes Has compression in place as prescribed Yes Yes Yes Has offloadiing in place as prescribed N/A N/A N/A Experienced any changes in pain level or No No No management Left Footwear Regular Shoe Regular Shoe Regular Shoe Right Footwear Regular Shoe Regular Shoe Regular Shoe Pain Scale: 0-10 Numeric Is Patient Pain Free? Yes Yes Yes WC - Nurse 1 - General Ulcer Measurement Start: 06/09/22 11:05 Freq: Status: Active Protocol: Activity Type Activity Date Activity User E-sign Co-sign Detail Recorded Client Recorded Date Recorded By Document 06/09/22 11:06 BM [id number] 06/09/22 11:12 BMF Document 06/23/22 09:18 AK [id number] 06/23/22 09:26 AK Document 07/01/22 13:17 KR [id number] 07/01/22 13:19 KR Document 07/01/22 13:20 KR [id number] 07/01/22 13:20 KR 06/09/22 06/23/22 07/01/22 11:06 09:18 13:17 Wound Center Nurse 1 #1- L LATERAL ANKLE -Combined with other wound No No -Current Size (cm) - Length 0.1 0.2 0.1 -Current Size (cm) - Width 0.1 0.2 0.1 -Current Size (cm) - Depth 0.1 0.1 0.1 -Total Square Cm 0.01 0.04 0.01 -Photo Taken No Yes -Epithelialization Large 67-100% -Tunneling No No -Undermining/Tunneling No No -Circular Undermining No No -Change in Wound Grade/Stage No -Exudate Amt None Present None Present None Present -Wound Margin Distinct, Distinct, Distinct, Outline Outline Outline Attached Attached Attached -Granulation Amt None Present (0 None Present (0 None Present (0 %) %) %) -Granulation Quality N/A -Slough/Fibrin Yes Yes -Necrosis Amt Small (1-33%) Large (67-100%) None Present (0 %) -Necrotic Tissue Type Adherent Slough Adherent Slough -Structure Exposed N/A -Texture (Zaida-wound Skin Appearance) Assessed, No Abnormality, Assessed, Scarring Assessed Scarring -Moisture (Zaida-wound Skin Appearance) Assessed,Dry/ No Abnormality, No Abnormality, Scaly Assessed Assessed -Color (Zaida-wound Skin Appearance) Assessed, Assessed, No Abnormality, Erythema Erythema Assessed -Temperature (Zaida-wound Skin No Abnormality No Abnormality No Abnormality Appearance) (Pt Warm) (Pt Warm) (Pt Warm) -Tenderness on Palpation (Zaida-wound No No No Skin Appearance) -Ulcer Cleansing Rinsed/ Rinsed/ Soap and Water Irrigated with Irrigated with Saline Saline -Foul Odor after Cleansing No No No -Anesthetic Used 5% Lidocaine 5% Lidocaine 5% Lidocaine Gel Gel Gel Right Calf (cm) 30 Right Ankle (cm) 18 Left Calf (cm) 30.7 Left Ankle (cm) 16.8 07/01/22 13:20 Wound Center Nurse 1 #1- L LATERAL ANKLE -Combined with other wound -Current Size (cm) - Length -Current Size (cm) - Width -Current Size (cm) - Depth -Total Square Cm -Photo Taken -Epithelialization -Tunneling -Undermining/Tunneling -Circular Undermining -Change in Wound Grade/Stage -Exudate Amt -Wound Margin -Granulation Amt -Granulation Quality -Slough/Fibrin -Necrosis Amt -Necrotic Tissue Type -Structure Exposed -Texture (Zaida-wound Skin Appearance) -Moisture (Zaida-wound Skin Appearance) -Color (Zaida-wound Skin Appearance) -Temperature (Zaida-wound Skin Appearance) -Tenderness on Palpation (Zaida-wound Skin Appearance) -Ulcer Cleansing -Foul Odor after Cleansing -Anesthetic Used Right Calf (cm) Right Ankle (cm) Left Calf (cm) 30 Left Ankle (cm) 17 - Nurse 2 - General Ulcer CM Notes Start: 06/09/22 11:05 Freq: Status: Active Protocol: Activity Type Activity Date Activity User E-sign Co-sign Detail Recorded Client Recorded Date Recorded By Document 06/09/22 11:34 [id number] 06/09/22 11:35 Document 06/23/22 09:41 [id number] 06/23/22 09:44 Document 07/01/22 13:32 [id number] 07/01/22 13:35 06/09/22 06/23/22 07/01/22 11:34 09:41 13:32 Wound Center Nurse 2 #1- L LATERAL ANKLE -Time 11:35 09:41 13:32 -Correct Patient Yes Yes Yes -Correct Side, Site, Position Yes Yes Yes -Correct Procedure Yes Yes Yes -Procedure Performed Yes Yes Yes -Type of Procedure Debridement Debridement Debridement -Clinical Debridement Subcutaneous Subcutaneous Subcutaneous -Tissue Removed Subcutaneous Subcutaneous Subcutaneous -Post Debridement (cm) - Length 0.2 0.2 0.1 -Post Debridement (cm) - Width 0.1 0.2 0.2 -Post Debridement (cm) - Depth 0.1 0.1 0.1 -Total Square (Post) (cm) 0.02 0.04 0.02 -Area of Debridement (cm) - Length 0.2 0.2 0.1 -Area of Debridement (cm) - Width 0.1 0.2 0.2 -Total Square (Area) (cm) 0.02 0.04 0.02 -Tunneling No No No -Undermining/Tunneling No No No -Circular Undermining No No No -Wound/Ulcer Outcome Not Healed Not Healed Not Healed -Ulcer Cleansing Rinsed/ Rinsed/ Rinsed/ Irrigated with Irrigated with Irrigated with Saline Saline Saline -Foul Odor after Cleansing No No No -Bioengineered Tissue No No No -Bleeding Controlled with Pressure Pressure Pressure -Treatment Response Procedure Procedure Procedure Tolerated Well Tolerated Well Tolerated Well -Offloading No No No -Debridement - Subq, 1st 20sq cm Yes Yes Yes Pain Scale: 0-10 Numeric Is Patient Pain Free? Yes Yes Yes - Nurse 3 - General Ulcer D/C NN Start: 06/09/22 11:05 Freq: Status: Active Protocol: Activity Type Activity Date Activity User E-sign Co-sign Detail Recorded Client Recorded Date Recorded By Document 06/09/22 11:43 [facility] [id number] 06/09/22 11:44 [facility] Document 06/23/22 10:35 ME [id number] 06/23/22 10:35 ME 06/09/22 06/23/22 11:43 10:35 Wound Care Nurse 3 #1- L LATERAL ANKLE -Ulcer Cleansing Rinsed/ Irrigated with Saline -Foul Odor after Cleansing No No -Negative Pressure Wound Therapy N/A -Primary Dressing Applied Other -Other Dressing HYDROGEL -Primary Dressing Covered/Secured with Dry Gauze, Secured with Tape Left -Multi-Layered Wrap Application Unna Boot - Left ($) Treatment Response Procedure Tolerated Well Pain Scale: 0-10 Numeric Is Patient Pain Free? Yes Yes - Visit Discharge Discharge Condition Stable Stable Ambulatory Status Ambulatory Ambulatory Transportation Private Auto Private Auto Medication Reconcilliation completed & Yes provided to patient/care provider Clinical Summary of Care Provided Yes Assessment/Plan Assessment/Plan (1) Venous insufficiency (chronic) (peripheral): CODE(S): I87.2 - Venous insufficiency (chronic) (peripheral) (2) Non-pressure chronic ulcer of left ankle with fat layer exposed: CODE(S): L97.322 - Non-pressure chronic ulcer of left ankle with fat layer exposed PLAN: This is a courtesy visit for Dr. Hernández. Patient evaluated. Patient has small ulceration to lateral malleolus with atrophic periwound skin. Unna boot applied to left lower extremity. Arterial studies ordered -awaiting performance of study. Smoking cessation counseling performed. Patient smoked for 60 years for COPD takes daily azithromycin. Patient refuses to discontinue. Patient will follow up in 1 week. I recommend exercise compression elevation for edema management.
== END 2022-07-01 23:59 | disposition home or self-care (01) ==
LOC: WC 13:15
PROVIDERS: PCP Family Medicine; Visit Provider Podiatrist
DX: I87.2 Venous insufficiency (chronic) (peripheral) (principal); L97.322 Non-pressure chronic ulcer of left ankle with fat layer exposed; F17.200 Nicotine dependence, unspecified, uncomplicated; Z79.51 Long term (current) use of inhaled steroids
CPT/HCPCS: 11042; 29580

== ENCOUNTER 2022-07-14 10:45 | Outpatient (RCR) | payer MEDICARE, OTHER, SELFPAY ==
[2022-07-02 00:36] VITALS: BP 134/76; PULSE 97; RESP 16; TEMP 36.1; BMI 25.0
--- NOTE | 2022-07-02 10:39 | ART_ITS ---
Reason For Study: Left olateral ankle ulcer Procedure A bilateral lower extremity continuous wave Doppler with analog waveform analysis,segmental pressures,and ankle brachial indexes without exercise. Left Segmental Pressures Left brachial= 122mmHg. Left dorsalis pedis artery = 135mmHg. Left digit = 46 mmHg. The left dorsalis pedis waveforms are biphasic. Right Segmental Pressures Right brachial= 124mmHg. Right posterior tibial artery = 133mmHg. Right dorsalis pedis artery = 135mmHg. Right digit = 91 mmHg. The right dorsalis pedis waveforms are triphasic. The right posterior tibial artery waveforms are triphasic. Indices The right ankle brachial index by the dorsalis pedis is 1.09. The right ankle brachial index by the posterior tibial artery is 1.07. The right digital-brachial index is 0.73. The left ankle brachial index by the dorsalis pedis is 1.09. The left digital-brachial index is 0.37. VL/Lower Ext Art Exam w/o Exercis Interpretation Summary Triphasic Doppler waveforms are noted at ankle level on the right. Biphasic Dop pler waveforms are noted at ankle level on the left. Pulse-volume recordings appear diminished at digital level on the left, but satisfactory at all other levels bilaterally. Resting ankle-brachial indices are normal bilaterally. The right digital-brachial index is normal. The left digital-brach ial index is moderately diminished. Arterial flow appears normal at ankle level bilaterally, and at digital level o n the right. There is evidence of moderate arterial occlusive disease at digital level on the left. Ordering Physician: Oli Hernández Referring Physician: Adria Fernando Performed By: Charisma Pretty RVT
[2022-07-08 14:12] VITALS: BP 133/71; PULSE 92; TEMP 36.2; BMI 25.0
--- NOTE | 2022-07-08 16:30 | PCM.WC.PN ---
History of Present Illness Date of Service: 07/08/22 Chief Complaint: Left lateral malleolar ulcer History of Wound: This 71-year-old female seen for a chronic lateral malleolar ulceration. Patient has several venous insufficiency and history of daily smoking for the past 60 years. Patient denies any constitutional symptoms. Patient denies any drainage to site. Patient has been dressing site with Band-Aid daily. Patient denies any pain to site at the current and has no other complaints. Patient has been dealing with the site for several months at this point without any signs of healing. Patient also takes prednisone daily. Progress of Wound: Courtesy visit for Dr. Hernández.? Left lateral malleolar ulcer is very small, damari wound is very pink and tender to palpation.?Not much change from last visit. No edema present. Objective Data Objective Data Vital Signs: Vital Signs Temp Pulse Resp BP 97.2 F L 92 16 133/71 H 07/08/22 14:12 07/08/22 14:12 07/02/22 00:36 07/08/22 14:12 Weight: 124 lb Body Mass Index (BMI) 25.0 Charges/Coding Procedures Integumentary 111xxx-113xx: 08655 Jeanne subq tissue 20 sq cm/< Physical Exam Const alert, oriented x3 and no apparent distress HEENT normocephalic Resp normal respiratory effort Cardio regular rate Extremity normal capillary refill General Extremity: Negative for edema Skin Wound Narrative: Left lateral malleolus ulcer is small but very tender to palpation. Neuro CN's II-XII intact bilaterally Psych affect normal Debridement Note Debridement Note Wound debrided: lateral malleolus ulcer Laterality: Left Type of Debridement: Excisional debridement Anesthesia Used: 5% Lidocaine Gel Depth: Down to and including healthy tissue and in the subcutaneous layer Percentage of wound debrided: 100 Instrument Used: 3mm curette Tissue Removed: Devitalized tissue and slough Severity: Limited To Skin Breakdown Amount of bleeding with debridement: Mild Bleeding Controlled with: Compression and gauze Patient tolerated procedure: Patient tolerated procedure well Post-Debridement Measurements and Additional Note: Post-Debridement Measurements/Treatment WC - Nurse 1 - General Ulcer Assessment Start: 07/08/22 14:12 Freq: Status: Active Protocol: LITO Activity Type Activity Date Activity User E-sign Co-sign Detail Recorded Client Recorded Date Recorded By Document 07/08/22 14:12 AK [id number] 07/08/22 14:18 LA 07/08/22 14:12 - Today's Visit Information Type of service Follow-up Visit (Physician/PERSONNEL ASSISTANT ) Arrival Mode Ambulatory Patient Identification Verified (Name & Yes ) Patient Requires Transmission-Based No Precautions Safety Precautions NA Height and Weight Body Mass Index (BMI) 25.0 BMI Classification Overweight Vital Signs Temperature (97.8 F-99.1 F) 97.2 F L Temperature Source Temporal Pulse Rate (60-100) 92 Blood Pressure (90/60-120/80) 133/71 H Blood Pressure Mean (mm Hg) 91 Source Monitor History Since Last Visit- (Skip if this is Patient's initial visit) Have you changed medications since your No last visit? Any new allergies or adverse reactions No Had a fall/change in ADL's that may No increase risk of falls Signs or symptoms of abuse and/or No neglect since last visit Have you been in the hospital since your No last visit? Has dressing in place as prescribed Yes Has compression in place as prescribed Yes Has offloadiing in place as prescribed N/A Experienced any changes in pain level or No management Left Footwear Regular Shoe Right Footwear Regular Shoe Pain Scale: 0-10 Numeric Is Patient Pain Free? Yes - Nurse 1 - General Ulcer Measurement Start: 07/08/22 14:12 Freq: Status: Active Protocol: Activity Type Activity Date Activity User E-sign Co-sign Detail Recorded Client Recorded Date Recorded By Document 07/08/22 14:12 LA [id number] 07/08/22 14:18 LA 07/08/22 14:12 Wound Center Nurse 1 #1- L LATERAL ANKLE -Combined with other wound No -Current Size (cm) - Length 0.1 -Current Size (cm) - Width 0.1 -Current Size (cm) - Depth 0.1 -Total Square Cm 0.01 -Photo Taken Yes -Epithelialization None Present -Tunneling No -Undermining/Tunneling No -Circular Undermining No -Change in Wound Grade/Stage No -Exudate Amt None Present -Wound Margin Distinct, Outline Attached -Granulation Amt None Present (0 %) -Granulation Quality N/A -Slough/Fibrin No -Necrosis Amt None Present (0 %) -Structure Exposed N/A -Texture (Damari-wound Skin Appearance) No Abnormality, Assessed -Moisture (Damari-wound Skin Appearance) No Abnormality, Assessed -Color (Damari-wound Skin Appearance) No Abnormality, Assessed -Temperature (Damari-wound Skin No Abnormality Appearance) (Pt Warm) -Tenderness on Palpation (Damari-wound No Skin Appearance) -Ulcer Cleansing Rinsed/ Irrigated with Saline -Foul Odor after Cleansing No -Anesthetic Used 5% Lidocaine Gel Left Calf (cm) 31 Left Ankle (cm) 17.5 WC - Nurse 2 - General Ulcer CM Notes Start: 07/08/22 14:12 Freq: Status: Active Protocol: Activity Type Activity Date Activity User E-sign Co-sign Detail Recorded Client Recorded Date Recorded By Document 07/08/22 14:23 MW [id number] 07/08/22 14:28 MW 07/08/22 14:23 Wound Center Nurse 2 #1- L LATERAL ANKLE -Time 14:23 -Correct Patient Yes -Correct Side, Site, Position Yes -Correct Procedure Yes -Procedure Performed Yes -Type of Procedure Debridement -Clinical Debridement Subcutaneous -Tissue Removed Subcutaneous -Post Debridement (cm) - Length 0.2 -Post Debridement (cm) - Width 0.2 -Post Debridement (cm) - Depth 0.1 -Total Square (Post) (cm) 0.04 -Area of Debridement (cm) - Length 0.2 -Area of Debridement (cm) - Width 0.2 -Total Square (Area) (cm) 0.04 -Tunneling No -Undermining/Tunneling No -Circular Undermining No -Wound/Ulcer Outcome Not Healed -Ulcer Cleansing Rinsed/ Irrigated with Saline -Foul Odor after Cleansing No -Bioengineered Tissue No -Bleeding Controlled with Pressure -Treatment Response Procedure Tolerated Well -Offloading No -Debridement - Subq, 1st 20sq cm Yes Pain Scale: 0-10 Numeric Is Patient Pain Free? Yes WC - Nurse 3 - General Ulcer D/C NN Start: 07/08/22 14:12 Freq: Status: Active Protocol: Activity Type Activity Date Activity User E-sign Co-sign Detail Recorded Client Recorded Date Recorded By Document 07/08/22 14:37 KR [id number] 07/08/22 14:38 KR 07/08/22 14:37 Wound Care Nurse 3 #1- L LATERAL ANKLE -Ulcer Cleansing Rinsed/ Irrigated with Saline -Primary Dressing Applied C Hydrogel ($), Mepilex Border -Mepilex Border 2 Left -Tubular Bandage Double Layer -Size of Tubigrip Used Size D -Size D ($) 2 Pain Scale: 0-10 Numeric Is Patient Pain Free? Yes WC - Visit Discharge Discharge Condition Stable Ambulatory Status Ambulatory Transportation Private Auto Assessment/Plan Assessment/Plan (1) Venous insufficiency (chronic) (peripheral): CODE(S): I87.2 - Venous insufficiency (chronic) (peripheral) (2) Non-pressure chronic ulcer of left ankle with fat layer exposed: CODE(S): L97.322 - Non-pressure chronic ulcer of left ankle with fat layer exposed PLAN: This is a courtesy visit for Dr. Hernández. Patient evaluated. Patient has small ulceration to left lateral malleolus with erythematous periwound skin. She is complaining of increased pain in her left lateral ulcer area. No improvement compared to last visit. Will change wound care to wash with soap and water, apply collagen hydrogel and cover with foam dressing every other day. Double layer tubigrip for compression. Arterial studies ordered -awaiting performance of study. Smoking cessation counseling performed. Patient smoked for 60 years for COPD takes daily azithromycin. Patient refuses to discontinue. Patient will follow up in [address] Hernández. I recommend exercise compression elevation for edema management.
[2022-07-14 10:34] VITALS: BP 126/67; PULSE 81; RESP 16; TEMP 35.9; BMI 25.0
--- NOTE | 2022-07-14 11:23 | PCM.WC.PN ---
History of Present Illness Date of Service: 07/14/22 Chief Complaint: Left lateral malleolar ulcer History of Wound: This 71-year-old female seen for a chronic lateral malleolar ulceration. Patient has several venous insufficiency and history of daily smoking for the past 60 years. Patient denies any constitutional symptoms. Patient denies any drainage to site. Patient has been dressing site with Band-Aid daily. Patient denies any pain to site at the current and has no other complaints. Patient has been dealing with the site for several months at this point without any signs of healing. Patient also takes prednisone daily. Objective Data Objective Data Vital Signs: Vital Signs Temp Pulse Resp BP O2 Del Method 96.7 F L 81 16 126/67 H Room Air 07/14/22 10:34 07/14/22 10:34 07/14/22 10:34 07/14/22 10:34 07/14/22 10:34 Oxygen Delivery Method Room Air Weight: 56.245 kg Body Mass Index (BMI) 25.0 Physical Exam Narrative Patient is alert oriented person place time. Vascular: Dorsalis pedis posterior tibial pulses palpable 2 out of 4 to bilateral lower extremity. Some atrophic skin changes noted with diminished digital hair growth. Varicosities noted bilaterally with +1 pitting edema noted to bilateral greater malleoli region. Neurologic: Light touch protective sensation intact bilateral feet negative Babinski. Dermatologic full-thickness ulceration noted to the lateral malleolus measuring 0.2 x 0.2 cm with mild periwound erythema no deep probing undermining or other signs of infection. Musculoskeletal: Muscular strength full to bilateral lower extremity compartments. No pain with calf squeeze or pop the patient popliteal fossa. No wound forming deformity is noted. Debridement Note Debridement Note Post-Debridement Measurements and Additional Note: Post-Debridement Measurements/Treatment - Nurse 1 - General Ulcer Assessment Start: 07/08/22 14:12 Freq: Status: Active Protocol: HERLINDA.LOWEXT Activity Type Activity Date Activity User E-sign Co-sign Detail Recorded Client Recorded Date Recorded By Document 07/08/22 14:12 AK [id number] 07/08/22 14:18 AK Document 07/14/22 10:34 MW [id number] 07/14/22 10:39 MW 07/08/22 07/14/22 14:12 10:34 - Today's Visit Information Type of service Follow-up Visit Follow-up Visit (Physician/AUTO BODY TECHNICIAN (Physician/AUTO BODY TECHNICIAN ) ) Arrival Mode Ambulatory Ambulatory Transfer Assistance None Accompanied by self Patient Identification Verified (Name & Yes Yes ) Patient Requires Transmission-Based No No Precautions Safety Precautions NA NA Height and Weight Body Mass Index (BMI) 25.0 25.0 BMI Classification Overweight Overweight Vital Signs Temperature (97.8 F-99.1 F) 97.2 F L 96.7 F L Temperature Source Temporal Temporal Pulse Rate (60-100) 92 81 Pulse Location Monitor Respiratory Rate (12-18) 16 Respiratory rate source Observation Oxygen Delivery Method Room Air Blood Pressure (90/60-120/80) 133/71 H 126/67 H Blood Pressure Mean (mm Hg) 91 86 Source Monitor Monitor Position Sitting Blood Pressure Location Right Arm History Since Last Visit- (Skip if this is Patient's initial visit) Have you changed medications since your No No last visit? Any new allergies or adverse reactions No No Had a fall/change in ADL's that may No No increase risk of falls Signs or symptoms of abuse and/or No No neglect since last visit Have you been in the hospital since your No No last visit? Has dressing in place as prescribed Yes No Has compression in place as prescribed Yes No Has offloadiing in place as prescribed N/A No Experienced any changes in pain level or No No management Left Footwear Regular Shoe Regular Shoe Right Footwear Regular Shoe Regular Shoe Pain Scale: 0-10 Numeric Is Patient Pain Free? Yes Yes - Nurse 1 - General Ulcer Measurement Start: 07/08/22 14:12 Freq: Status: Active Protocol: Activity Type Activity Date Activity User E-sign Co-sign Detail Recorded Client Recorded Date Recorded By Document 07/08/22 14:12 AK [id number] 07/08/22 14:18 AK Document 07/14/22 10:34 MW [id number] 07/14/22 10:39 MW 07/08/22 07/14/22 14:12 10:34 Wound Center Nurse 1 #1- L LATERAL ANKLE -Combined with other wound No No -Current Size (cm) - Length 0.1 0.1 -Current Size (cm) - Width 0.1 0.1 -Current Size (cm) - Depth 0.1 0.1 -Total Square Cm 0.01 0.01 -Date of Last Picture (Recall this 07/14/22 field) -Photo Taken Yes Yes -Epithelialization None Present Large 67-100% -Tunneling No No -Undermining/Tunneling No No -Circular Undermining No No -Change in Wound Grade/Stage No -Exudate Amt None Present None Present -Wound Margin Distinct, Flat & Intact Outline Attached -Granulation Amt None Present (0 None Present (0 %) %) -Granulation Quality N/A N/A -Slough/Fibrin No No -Necrosis Amt None Present (0 Small (1-33%) %) -Necrotic Tissue Type Adherent Slough -Structure Exposed N/A N/A -Texture (Zaida-wound Skin Appearance) No Abnormality, Assessed, Assessed Scarring -Moisture (Zaida-wound Skin Appearance) No Abnormality, Assessed,Dry/ Assessed Scaly -Color (Zaida-wound Skin Appearance) No Abnormality, No Abnormality, Assessed Assessed -Temperature (Zaida-wound Skin No Abnormality No Abnormality Appearance) (Pt Warm) (Pt Warm) -Tenderness on Palpation (Zaida-wound No No Skin Appearance) -Ulcer Cleansing Rinsed/ Rinsed/ Irrigated with Irrigated with Saline Saline -Foul Odor after Cleansing No No -Anesthetic Used 5% Lidocaine 5% Lidocaine Gel Gel Lower Limb Edema Present No Left Calf (cm) 31 Left Ankle (cm) 17.5 WC - Nurse 2 - General Ulcer CM Notes Start: 07/08/22 14:12 Freq: Status: Active Protocol: Activity Type Activity Date Activity User E-sign Co-sign Detail Recorded Client Recorded Date Recorded By Document 07/08/22 14:23 [id number] 07/08/22 14:28 Document 07/14/22 11:21 [id number] 07/14/22 11:21 07/08/22 07/14/22 14:23 11:21 Wound Center Nurse 2 #1- L LATERAL ANKLE -Time 14:23 -Correct Patient Yes No -Correct Side, Site, Position Yes No -Correct Procedure Yes No -Procedure Performed Yes No -Type of Procedure Debridement -Clinical Debridement Subcutaneous -Tissue Removed Subcutaneous -Post Debridement (cm) - Length 0.2 -Post Debridement (cm) - Width 0.2 -Post Debridement (cm) - Depth 0.1 -Total Square (Post) (cm) 0.04 -Area of Debridement (cm) - Length 0.2 -Area of Debridement (cm) - Width 0.2 -Total Square (Area) (cm) 0.04 -Tunneling No -Undermining/Tunneling No -Circular Undermining No -Wound/Ulcer Outcome Not Healed Not Healed -Ulcer Cleansing Rinsed/ Irrigated with Saline -Foul Odor after Cleansing No -Bioengineered Tissue No -Bleeding Controlled with Pressure -Treatment Response Procedure Tolerated Well -Offloading No -Debridement - Subq, 1st 20sq cm Yes Pain Scale: 0-10 Numeric Is Patient Pain Free? Yes Yes WC - Nurse 3 - General Ulcer D/C NN Start: 07/08/22 14:12 Freq: Status: Active Protocol: Activity Type Activity Date Activity User E-sign Co-sign Detail Recorded Client Recorded Date Recorded By Document 07/08/22 14:37 LUPE [id number] 07/08/22 14:38 LUPE 07/08/22 14:37 Wound Care Nurse 3 #1- L LATERAL ANKLE -Ulcer Cleansing Rinsed/ Irrigated with Saline -Primary Dressing Applied C Hydrogel ($), Mepilex Border -Mepilex Border 2 Left -Tubular Bandage Double Layer -Size of Tubigrip Used Size D -Size D ($) 2 Pain Scale: 0-10 Numeric Is Patient Pain Free? Yes WC - Visit Discharge Discharge Condition Stable Ambulatory Status Ambulatory Transportation Private Auto Assessment/Plan Assessment/Plan (1) Venous insufficiency (chronic) (peripheral): CODE(S): I87.2 - Venous insufficiency (chronic) (peripheral) (2) Non-pressure chronic ulcer of left ankle with fat layer exposed: CODE(S): L97.322 - Non-pressure chronic ulcer of left ankle with fat layer exposed PLAN: Patient evaluated. Patient has small ulceration to left lateral malleolus with erythematous periwound skin. She is complaining of increased pain in her left lateral ulcer area. No improvement compared to last visit. Will change wound care to wash with soap and water, apply collagen hydrogel and cover with foam dressing every other day. Double layer tubigrip for compression. Arterial studies ordered -awaiting performance of study. Smoking cessation counseling performed. Patient smoked for 60 years for COPD takes daily azithromycin. Patient refuses to discontinue. Patient will follow up in [address] Hernández. I recommend exercise compression elevation for edema management.
== END 2022-07-31 23:59 | disposition home or self-care (01) ==
LOC: WC 10:45
PROVIDERS: PCP Family Medicine; Referring Provider Podiatrist; Visit Provider Podiatrist
DX: I87.2 Venous insufficiency (chronic) (peripheral) (principal); L97.321 Non-pressure chronic ulcer of left ankle limited to breakdown of skin; L97.322 Non-pressure chronic ulcer of left ankle with fat layer exposed; Z87.891 Personal history of nicotine dependence
CPT/HCPCS: 11042; 93923; 99213; G0463

== ENCOUNTER 2022-08-04 10:37 | Outpatient (RCR) | payer MEDICARE, OTHER, SELFPAY ==
[2022-08-01 01:27] VITALS: BP 126/67; PULSE 81; RESP 16; TEMP 35.9; BMI 25.0
[2022-08-04 10:49] VITALS: BP 133/72; PULSE 92; RESP 16; TEMP 35.8; BMI 25.0
--- NOTE | 2022-08-04 11:34 | PN.PCM_ITS ---
History of Present Illness Date of Service: 08/04/22 Chief Complaint: Left lateral malleolar ulcer History of Wound: This 71-year-old female seen for a chronic lateral malleolar ulceration. Patient has several venous insufficiency and history of daily smoking for the past 60 years. Patient denies any constitutional symptoms. Patient denies any drainage to site. Patient has been dressing site with Band- Aid daily. Patient denies any pain to site at the current and has no other complaints. Patient has been dealing with the site for several months at this point without any signs of healing. Patient also takes prednisone daily. Objective Data Objective Data Vital Signs: Vital Signs Temp Pulse Resp BP O2 Del Method 96.5 F L 92 16 133/72 H Room Air 08/04/22 10:49 08/04/22 10:49 08/04/22 10:49 08/04/22 10:49 08/04/22 10:49 Oxygen Delivery Method Room Air Weight: 56.245 kg Body Mass Index (BMI) 25.0 Physical Exam Narrative Patient is alert oriented person place time. Vascular: Dorsalis pedis posterior tibial pulses palpable 2 out of 4 to bilateral lower extremity. Some atrophic skin changes noted with diminished digital hair growth. Varicosities noted bilaterally with +1 pitting edema noted to bilateral greater malleoli region. Neurologic: Light touch protective sensation intact bilateral feet negative Babinski. Dermatologic wound to lateral malleolus healed at this time. Some residual skin irritation noted. Musculoskeletal: Muscular strength full to bilateral lower extremity compartments. No pain with calf squeeze or pop the patient popliteal fossa. No wound forming deformity is noted. Debridement Note Debridement Note Post-Debridement Measurements and Additional Note: Post-Debridement Measurements/Treatment - Nurse 1 - General Ulcer Assessment Start: 08/04/22 10:48 Freq: Status: Active Protocol: HERLINDA.LOWEXT Activity Type Activity Date Activity User E-sign Co-sign Detail Recorded Client Recorded Date Recorded By Document 08/04/22 10:49 [facility] [id number] 08/04/22 10:57 [facility] 08/04/22 10:49 - Today's Visit Information Type of service Follow-up Visit (Physician/INTERIOR HORTICULTURIST ) Arrival Mode Ambulatory Transfer Assistance None Patient Identification Verified (Name & Yes ) Patient Requires Transmission-Based No Precautions Height and Weight Body Mass Index (BMI) 25.0 BMI Classification Overweight Vital Signs Temperature (97.8 F-99.1 F) 96.5 F L Temperature Source Temporal Pulse Rate (60-100) 92 Pulse Location Monitor Respiratory Rate (12-18) 16 Respiratory rate source Observation Oxygen Delivery Method Room Air Blood Pressure (90/60-120/80) 133/72 H Blood Pressure Mean (mm Hg) 92 Source Monitor Position Sitting Blood Pressure Location Left Arm History Since Last Visit- (Skip if this is Patient's initial visit) Have you changed medications since your No last visit? Any new allergies or adverse reactions No Had a fall/change in ADL's that may Yes increase risk of falls Signs or symptoms of abuse and/or No neglect since last visit Have you been in the hospital since your No last visit? Has dressing in place as prescribed Yes Has compression in place as prescribed Yes Has offloadiing in place as prescribed N/A Experienced any changes in pain level or No management Left Footwear Regular Shoe Right Footwear Regular Shoe Pain Scale: 0-10 Numeric Is Patient Pain Free? Yes WC - Nurse 1 - General Ulcer Measurement Start: 08/04/22 10:48 Freq: Status: Active Protocol: Activity Type Activity Date Activity User E-sign Co-sign Detail Recorded Client Recorded Date Recorded By Document 08/04/22 10:49 [facility] [id number] 08/04/22 10:57 [facility] 08/04/22 10:49 Wound Center Nurse 1 #1- L LATERAL ANKLE -Combined with other wound No -Current Size (cm) - Length 0.1 -Current Size (cm) - Width 0.1 -Current Size (cm) - Depth 0.1 -Total Square Cm 0.01 -Photo Taken No -Epithelialization Medium 34-66% -Tunneling No -Undermining/Tunneling No -Circular Undermining No -Exudate Amt None Present -Wound Margin Distinct, Outline Attached -Granulation Amt Small (1-33%) -Granulation Quality Red -Slough/Fibrin No -Necrosis Amt None Present (0 %) -Texture (Zaida-wound Skin Appearance) Assessed, Scarring -Moisture (Zaida-wound Skin Appearance) Assessed -Color (Zaida-wound Skin Appearance) Assessed, Erythema -Temperature (Zaida-wound Skin No Abnormality Appearance) (Pt Warm) -Tenderness on Palpation (Zaida-wound No Skin Appearance) -Ulcer Cleansing Rinsed/ Irrigated with Saline -Foul Odor after Cleansing No -Anesthetic Used 5% Lidocaine Gel Lower Limb Edema Present Yes Left Calf (cm) 30.5 Left Ankle (cm) 17.9 - Nurse 2 - General Ulcer CM Notes Start: 08/04/22 10:48 Freq: Status: Active Protocol: Activity Type Activity Date Activity User E-sign Co-sign Detail Recorded Client Recorded Date Recorded By Document 08/04/22 11:25 [id number] 08/04/22 11:29 08/04/22 11:25 Wound Center Nurse 2 #1- L LATERAL ANKLE -Correct Patient No -Correct Side, Site, Position No -Correct Procedure No -Procedure Performed No -Post Debridement (cm) - Length 0 -Post Debridement (cm) - Width 0 -Post Debridement (cm) - Depth 0 -Total Square (Post) (cm) 0 -Area of Debridement (cm) - Length 0 -Area of Debridement (cm) - Width 0 -Total Square (Area) (cm) 0 -Wound/Ulcer Outcome Healed- Epithelialized Pain Scale: 0-10 Numeric Is Patient Pain Free? Yes Assessment/Plan Assessment/Plan (1) Venous insufficiency (chronic) (peripheral): CODE(S): I87.2 - Venous insufficiency (chronic) (peripheral) (2) Non-pressure chronic ulcer of left ankle with fat layer exposed: CODE(S): L97.322 - Non-pressure chronic ulcer of left ankle with fat layer exposed PLAN: Patient evaluated. Wound healed. Patient will follow up in the office in a month to ensure no recurrence. She will continue current conservative treatment for the next week and then discontinue return to normal shoe gear. Still awaiting vascular results. Follow-up 1 month.
== END 2022-08-05 16:15 | disposition home or self-care (01) ==
LOC: WC 10:37
PROVIDERS: PCP Family Medicine; Referring Provider Podiatrist; Visit Provider Podiatrist
DX: I87.2 Venous insufficiency (chronic) (peripheral) (principal); L97.322 Non-pressure chronic ulcer of left ankle with fat layer exposed
CPT/HCPCS: 99213; G0463

== ENCOUNTER → 2022-08-13 | Outpatient (CLI) | payer MEDICARE, OTHER, SELFPAY ==
--- NOTE | 2022-08-13 14:05 | BI_ITS ---
MAMMOGRAPHY - BILATERAL SCREENING REASON FOR EXAM: Female, 71 years old. Routine annual screening examination. PERTINENT HISTORY: Non-contributory. TECHNIQUE: Digital bilateral breast jesus (3D mammographic acquisition) in the CC and MLO projections. 2-D mediolateral oblique (MLO) and craniocaudad (CC) views of both breasts were obtained. CAD: Full Field Digital Mammography with Computer Added Detection was performed. COMPARISON: Comparison is made with prior study dated 06/13/2020 and 05/10/2019. FINDINGS: Breast Composition: The breasts are heterogeneously dense, which may obscure small masses. There are no dominant masses or suspicious calcifications. No other significant abnormalities are identified. There has been no significant change since the prior study. BI/SCRN MAMM (CAD)W/JESUS BILAT IMPRESSION: Stable bilateral screening mammogram. Yearly follow-up mammogram recommended. (A) ASSESSMENT CATEGORY: BIRADS Category 1: Negative. A letter regarding these results will be sent to the patient by the facility within 30 days. Approximately 10% of breast cancers are not detected by mammography. A normal mammogram should not delay biopsy of a clinically suspicious abnormality. [id number] Electronically Signed: Teja Tobar MD at 15:25 EDT ,
--- NOTE | 2022-08-13 14:09 | BD_ITS ---
STUDY: DUAL ENERGY X-RAY ABSORPTIOMETRY / DXA REASON FOR EXAM: Female, 71 years old. M810 TECHNIQUE: Bone Mineral Density (BMD) measurements of lumbar spine and bilateral hips were obtained. COMPARISON: Comparison is made with prior examination dated 04/11/2020. FINDINGS: Lumbar Spine (L1-L4): g/cm2 (0.829) / T-score (-1.7) / Z-score (0.6) Findings are suggestive of osteopenia with a moderate fracture risk. Left Femur Total: g/cm2 (0.691) / T-score (-2.1) / Z-score (-0.3) Left Femoral Neck: g/cm2 (0.568) / T-score (-2.5) / Z-score (-0.5) Right Femur Total: g/cm2 (0.715) / T-score (-1.9) / Z-score (-0.1) Right Femoral Neck: g/cm2 (0.563) / T-score (-2.6) / Z-score (-0.5) The T-Scores on the most recent prior examination were: Lumbar Spine (L1-L4): There has been improvement of bone density since the previous examination. Left Femur Total: which represents an improvement of 3.6. Right Femur Total: which represents an improvement of 4.8%. BD/Dexa Bone Density Study IMPRESSION: The patient is considered osteoporotic as outlined below according to World [employer] Organization (WHO) criteria with a high fracture risk. There has been improvement of bone density since the previous examination. Reference Information: The T-score is the number of standard deviations above or below the standard which is normal for young adults at their peak bone mineral density. The World Health Organization (WHO) interprets the T-scores as follows: Above -1 Normal bone density Between -1 and -2.5 Osteopenia Equal to / or below -2.5 Osteoporosis As a practical clinical guideline, osteopenia may be graded as follows: Mild -1 through -1.5 Moderate -1.6 through -2.0 Severe -2.1 through -2.4 The Z-score is the number of standard deviations above or below age-matched controls. A Z-score of less than -1.5 would be considered abnormal. References: 1. NIH Osteoporosis and Related Bone Diseases www osteo.org 2. International Society for Clinical Densitometry www iscd.org 3. National Osteoporosis Foundation www nof.org Electronically Signed: Teja Tobar MD at 13:58 EDT ,
== END | disposition home or self-care (01) ==
PROVIDERS: PCP Family Medicine; Visit Provider Nurse Practitioner Women's Health
DX: Z12.31 Encounter for screening mammogram for malignant neoplasm of breast (principal); M81.0 Age-related osteoporosis without current pathological fracture; M85.80 Other specified disorders of bone density and structure, unspecified site
CPT/HCPCS: 77063; 77067; 77080